=== PATIENT | male | born 1960 | race Caucasian/White ===

== ENCOUNTER 2019-05-21 22:59 | Inpatient (IN) ==
[2019-05-22 00:43] LABS: URINE SOURCE VOIDED
[2019-05-22 01:03] LABS: BILIRUBIN URINE NEGATIVE (NEGATIVE); BLOOD URINE MODERATE (NEGATIVE); COLOR ORANGE; GLUCOSE URINE TRACE mg/dL (NEGATIVE); KETONE URINE NEGATIVE (NEGATIVE); LEUKOCYTES URINE LARGE (NEGATIVE); NITRITE URINE NEGATIVE (NEGATIVE); PROTEIN URINE 300 mg/dL (NEGATIVE); SP GRAVITY URINE 1.013; TURBIDITY URINE TURBID (CLEAR); UROBILINOGEN URINE NORMAL (NORMAL)
[2019-05-22 01:12] LABS: UR EPITHELIAL CELLS <10 /HPF (<10); URINE BACTERIA 1+ /HPF; URINE RBC 20-40 /HPF (<10); URINE WBC TNTC /HPF (<10)
[2019-05-22 01:29] LABS: URINE CASTS NONE SEEN; URINE CRYSTALS NONE SEEN; URINE YEAST NONE SEEN
[2019-05-22 01:30] LABS: URINE SMALL ROUND CELLS NONE SEEN
[2019-05-22 01:33] LABS: BASO# 0.04 X1000 (0.0-0.2); BASO% 0.4 % (0.0-0.8); EOS# 0.48 X1000 (0.0-0.7); EOS% 4.8 % (0.0-10.0); HEMATOCRIT 24.1 % (42.0-52.0); HEMOGLOBIN 7.5 g/dL (14.0-18.0); IMM GRAN# 0.03 X1000 (0.0-0.04); IMM GRAN% 0.3 % (0.0-0.5); LYMPH# 1.94 X1000 (1.2-3.4); LYMPH% 19.5 % (20.5-51.1); MCH 24.5 PG (27-31); MCHC 31.1 g/dL (33-37); MCV 78.8 FL (81-99); MONO# 0.51 X1000 (0.11-0.59); MONO% 5.1 % (1.7-9.3); MPV 9.7 FL (7.4-10.4); NEUT# 6.93 X1000 (1.4-6.5); NEUT% 69.9 % (42.2-75.2); PLT 331 X1000 (130-400); RBC 3.06 XMIL (4.7-6.1); WBC 9.93 X1000 (4.8-10.8)
[2019-05-22 01:55] LABS: ESTIMATED GFR 19
[2019-05-22 01:57] LABS: AGAP 9; ALBUMIN 2.6 g/dL (3.5-5.0); ALKALINE PHOSPHATASE 91 U/L (32-122); BUN 20 mg/dL (8-22); CALCIUM 7.8 mg/dL (8.8-10.2); CHLORIDE 108 mmol/L (98-107); CK PROFILE 62 U/L (24-204); COSMO 285; CREATININE 3.3 mg/dL (0.7-1.2); GLUCOSE 121 mg/dL (70-104); GOT 10 U/L (10-34); GPT < 5 U/L (10-44); POTASSIUM 3.9 mmol/L (3.5-5.1); SODIUM 141 mmol/L (136-145); TCO2 24 mmol/L (25-35); TOTAL BILIRUBIN < 0.15 mg/dL (0.20-1.00); TOTAL PROTEIN 5.1 g/dL (6.3-8.3)
[2019-05-22] MEDS ORDERED: NS 1,000 ML IV ONE (02:20)
--- NOTE | 2019-05-22 02:23 | PROVIDER DOCUMENTATION ---
This chart was entered by Mikayla Hirsch Scribe, acting as scribe for Vy Chapin MD. HPI-Neurological Disorder - General Chief Complaint: Fall Stated Complaint: syncope Time Seen by Provider: 05/22/19 00:00 Source: patient, family (son) Allergies/Adverse Reactions: Patient Allergies Allergy/AdvReac Type Severity Reaction Status Date / Time No Known Allergies Allergy Verified 02/05/14 09:08 Home Medications: Home Medication List Medication Instructions Recorded Confirmed Last Taken Type NK [No Home Medications] 05/21/19 05/21/19 Unknown History - History of Present Illness-Neuro Nature of Presenting Problem: Pt is a 58 yowm brought into the ED by EMS after he fell at home this evening and was disoriented and confused about who he was or where he was. Pt's son states his father was fine yesterday, laughing and having normal conversation. Pt's son states his father was diagnosed with diabetes in 2002 and to his knowledge has taken no medication to control his diabetes in the last 3 years. Pt is alert but does not know his name, where he is or what year it is. Severity: reports: severe Onset/Duration: reports: abrupt, just prior to arrival, this evening Timing: reports: still present Context: reports: found unresponsive by family Approximate time patient was last seen normal?: 19:00 (son states he saw his father on 05/20/2019 and they had a normal conversation) Character of Altered Mental Status: reports: disoriented, confused, agitated, trouble concentrating Any recent trauma/injury?: reports: none Character of Deficits: reports: new weakness, falling Cognitive Baseline: alert but confused Gait Baseline: walks without assistance Associated Symptoms: reports: confusion, loss of consciousness. denies: short of breath, fever/chills, nausea, vomiting Similar Symptoms Previously?: No Recently seen or treated by another doctor?: No Review of Systems - Adult - REVIEW OF SYSTEMS - ADULT ROS:: ROS per family (son) Constitutional: denies: chills, fever Eyes: reports: no symptoms reported Ears, Nose, Mouth & Throat: reports: no symptoms reported Cardiovascular: reports: syncope. denies: chest pain Respiratory: denies: cough, shortness of breath Gastrointestinal: denies: nausea, vomiting Genitourinary: reports: no symptoms reported Musculoskeletal: reports: see HPI, bone pain, muscle weakness Integumentary: reports: no symptoms reported Neurological: reports: see HPI, syncope Psychiatric: reports: no symptoms reported Endocrine: reports: no symptoms reported Hematologic/Lymphatic: reports: no symptoms reported Allergic/Immunologic: reports: no symptoms reported All Other Systems: Reviewed and Negative Past History - Adult - PAST MEDICAL HISTORY-ADULT Review of Records: reports: Old Records Reviewed, Nursing Assessment Review, Medications Reviewed, Social history reviewed & non-contributory. Major Childhood Illnesses: reports: denies history Cardiovascular: reports: denies history Respiratory: reports: denies history Gastrointestinal: reports: denies history Obstetrical/Gynecological: reports: denies history Genitourinary: reports: denies history Musculoskeletal: reports: denies history Neurological: reports: denies history Endocrine/Immune: reports: Diabetes Diabetes Type: Type 2 Other Conditions: reports: MRSA (back of head) - PRIOR SURGERIES/PROCEDURES Surgical/Procedure History: reports: back/neck - IMMUNIZATION STATUS Childhood Immunizations: See Nurse Assessment Flu Vaccine: See Nurse Assessment - FAMILY HISTORY Family History: reviewed, not pertinent - SOCIAL HISTORY Smoking: cigarettes, less than 1 pack/day, other (smokeless tobacco) Provider spent 3-5 mins advising pt. on dangers of tobacco.: Discussed manners to quit use, and f/u contacts for add'l counseling. Substance Use: denies Living Situation: family Physical Exam- Neurological - Physical Exam-Neuro Initial Vital Signs Reviewed: Yes General Appearance: alert, mild distress, slow to respond Eye Exam: bilateral eye: PERRL HENMT: moist mucous membranes Head Injury: no evidence of injury Neck: non-tender, full range of motion, supple Respiratory: chest non-tender, lungs clear, normal breath sounds, no pleuratic chest pain Cardiovascular: normal peripheral pulses, regular rate, rhythm, no edema Abdominal Exam: normal bowel sounds, non tender, soft Extremity: normal range of motion, non-tender, normal gait, normal inspection, no pedal edema doctor podiatric medicine Exam: normal hearing, normal speech, PERRL. negative: facial droop, facial weakness Integumentary: normal turgor, warm/dry, pallor Psych/Mental Status: disoriented x 3, anxious, disheveled Progress - PLAN OF CARE/RESULTS Progress/Plan/Lab Results: Vital Signs - 8 hr 05/21/19 23:39 05/21/19 23:43 05/22/19 00:00 Temperature 97.8 F Pulse Rate 75 76 74 Respiratory Rate 14 17 13 Blood Pressure 170/86 170/86 O2 Sat by Pulse Oximetry 100 98 99 Laboratory Results - last 24 hr 05/21/19 05/22/19 05/22/19 23:36 01:06 01:06 WBC 9.93 RBC 3.06 L Hgb 7.5 L Hct 24.1 L MCV 78.8 L MCH 24.5 L MCHC 31.1 L RDW Std Deviation 14.0 Plt Count 331 MPV 9.7 Immature Gran % (Auto) 0.3 Neut % (Auto) 69.9 Lymph % (Auto) 19.5 L Jones % (Auto) 5.1 Eos % (Auto) 4.8 Baso % (Auto) 0.4 Immature Gran # (Auto) 0.03 Neut # (Auto) 6.93 H Lymph # (Auto) 1.94 Jones # (Auto) 0.51 Eos # (Auto) 0.48 Baso # (Auto) 0.04 Sodium Potassium Chloride Carbon Dioxide Anion Gap BUN Creatinine Estimated GFR/1.73 m2 BUN/Creatinine Ratio Glucose Calculated Osmolality Calcium Total Bilirubin AST ALT Alkaline Phosphatase Ammonia 17 Creatine Kinase Troponin T High Sens Total Protein Albumin Globulin Albumin/Globulin Ratio Urine Source VOIDED Urine Color ORANGE Urine Turbidity TURBID Urine pH 7.0 Ur Specific [place] 1.013 Urine Protein 300 A Ur Glucose (Stick) TRACE Ur Ketones (Stick) NEGATIVE Urine Blood MODERATE A Urine Nitrite NEGATIVE Urine Bilirubin NEGATIVE Urobilinogen Dipstick NORMAL Urine Leukocytes LARGE A Urine WBC (Auto) TNTC A Urine RBC (Auto) 20-40 A U Epithel Cells (Auto) <10 Urine Bacteria (Auto) 1+ Urine Crystals NONE SEEN Small Round Cells NONE SEEN Urine Casts NONE SEEN Urine Yeast-like Cells NONE SEEN 05/22/19 05/22/19 01:06 01:06 WBC RBC Hgb Hct MCV MCH MCHC RDW Std Deviation Plt Count MPV Immature Gran % (Auto) Neut % (Auto) Lymph % (Auto) Jones % (Auto) Eos % (Auto) Baso % (Auto) Immature Gran # (Auto) Neut # (Auto) Lymph # (Auto) Jones # (Auto) Eos # (Auto) Baso # (Auto) Sodium 141 Potassium 3.9 Chloride 108 H Carbon Dioxide 24 L Anion Gap 9 BUN 20 Creatinine 3.3 H Estimated GFR/1.73 m2 19 BUN/Creatinine Ratio 6 Glucose 121 H Calculated Osmolality 285 Calcium 7.8 L Total Bilirubin < 0.15 L AST 10 ALT < 5 L Alkaline Phosphatase 91 Ammonia Creatine Kinase 62 Troponin T High Sens 108 H* Total Protein 5.1 L Albumin 2.6 L Globulin 2.5 Albumin/Globulin Ratio 1.0 Urine Source Urine Color Urine Turbidity Urine pH Ur Specific [place] Urine Protein Ur Glucose (Stick) Ur Ketones (Stick) Urine Blood Urine Nitrite Urine Bilirubin Urobilinogen Dipstick Urine Leukocytes Urine WBC (Auto) Urine RBC (Auto) U Epithel Cells (Auto) Urine Bacteria (Auto) Urine Crystals Small Round Cells Urine Casts Urine Yeast-like Cells Orders Category Date Time Status CHEST-2 VIEWS [RAD] Stat Exams 05/22/19 00:[address] HEAD W/O CONTRAST [CT] Stat Exams 05/22/19 00:13 Taken AMMONIA [CHEM] Stat Lab 05/22/19 01:06 Completed CBC WITH ELECTRONIC DIFF [HEME] Stat Lab 05/22/19 01:06 Completed CK PROFILE [SP CHEM] Stat Lab 05/22/19 01:06 Completed COMPREHENSIVE METABOLIC PANEL [CHEM] Stat Lab 05/22/19 01:06 Completed TROPONIN T HIGH SENSITIVITY Stat Lab 05/22/19 01:06 Completed URINALYSIS [URINALYSIS] Stat Lab 05/22/19 00:37 Completed URINE MANUAL MICROSCOPIC [URINALYSIS] Stat Lab 05/21/19 23:36 Completed Result Diagrams: 05/22/19 01:06 05/22/19 01:06 - REASSESSMENT Reassessment #1 Time Reassessed: 02:20 Status: unchanged (Patient with persistent altered mental status. labs and studies reviewed with family and patient. Recommendation for admission. Family/patient in agreement with plan of care.) - XRAY 1 XRAY Study: Chest Impression: See EMR Report - CT/MRI 1 CT Study: Head Impression: See EMR Report - CONSULTS/PCP/HOSPITALIST Notification #1 *Consult/PCP/Hospitalist*: Dr. William Time Discussed: 02:21 Consult Disposition: Will see in ED, Admit Departure - Departure Date of Disposition Decision: 05/22/19 Time of Disposition Decision: 02:22 DIAGNOSIS: Altered mental status Qualifiers: Altered mental status type: disorientation Qualified Code(s): R41.0 - Disorientation, unspecified Acute renal failure (ARF) Qualifiers: Acute renal failure type: unspecified Qualified Code(s): N17.9 - Acute kidney failure, unspecified Disposition: ADMITTED INPATIENT 09 Certified Medical Emergency: Emergent Condition: Stable Referrals and Follow-Ups: None,PCP [Primary Care Provider] - - Critical Care Note This patient required my direct & personal management of CC.: No Attestation - Physician/ SENIA Attestation Patient care was provided by Advanced Practice Provider:: No The physician spent face to face time with patient:: Yes Advanced Practice Provider documentation review:: Supervising physician onsite and consulted in the evaluation and care of this patient. The physician did have a face to face encounter with the patient. - NIH Stroke Scale NIH Type: Initial Evaluation Level of Consciousness: 0-Alert LOC Questions (ask month and age): 2-Both Incorrect LOC Commands (ask to open & close eyes;make a fist, let go): 0-Obeys Both Correc tly Best Gaze (horizontal eye movement): 0-Normal Visual (use finger movement, counting or visual threat): 0-No Visual Loss Facial Palsy (show teeth or raise eyebrows & close eyes tght: 0-Symmetrical Movement Motor Function-left arm: 0-Normal Motor Function-right arm: 0-Normal Motor Function-left le-Normal Motor Function-right le-Normal Limb Ataxia(zolpvv-[id number], or heel to crowder): 0-No Ataxia Sensory(pin prick to face,arms,trunk,legs-compare side/side): 0-No Ataxia Best Language(name item/read sentence.Ex-Down to Earth): 0-No Aphasia Dysarthria(Pt read words or say words Ex.Mama,Tip-Top,Thanks: 0-Normal A rticulation Extinction and Inattention: 0-Normal NIH Total Score: 2 Stroke tPA Guidelines - Inclusion Criteria for IV tPA 18 years old or older: Yes Ischemic stroke with measurable deficit: No Onset <3 hours ago *OR* 3-4.5 hours ago: No This chart was documented by the indicated scribe, (Mikayla Hirsch, Scribe) and accurately reflects the services I performed and decisions made by , Vy Chapin MD, as attested by the provider's signature.
[2019-05-22] MEDS: ROCEPHIN 1 GM in NS 50 ML IV SCH (03:06)
--- NOTE | 2019-05-22 04:14 | HISTORY AND PHYSICAL ---
ADDENDUM: The patient was reportedly found "unconscious" on the floor of his apartment by friend, who called the patient's son and she also called EMS to bring him in. The friend is not sure if the patient rolled off the couch or passed out while standing. In the ER, the patient is alert and awake, but not oriented to person, place or time, but follows all commands. He cannot recognize his son, does not know even his own son. Does not remember his name. Exam is notable for tremor of the outstretched hands, but no focal signs noted. LABORATORY WORK: Notable for hemoglobin and hematocrit of 7 and 24, down from a hematocrit of 39. BUN is 20, creatinine was 2.3, this is up from a creatinine of 1 in 2014. Glucose 121. Troponin is elevated also. The patient denies any cardiac symptoms. Urinalysis showed too numerous to count WBCs. Head CT showed occipital hematoma. His vital signs blood pressure 170/80, heart rate 85, respiratory rate is 20, temperature 97.8, O2 sats 91% on room air. My suspicion is that this patient may have had a postconcussion event which may be preceded by seizure event and he could be in a post ictal phase. Also, I do believe patient has chronic kidney disease and some degree of uremia, which may or may not be playing a role here. Urine drug screen is pending. Blood gas is pending. For now, we will treat urinary tract, which I do not think this playing a large role in the patient's confusion as the patient is not delirious, but seems to have had some evidence of retrograde amnesia. For now, we will work up anemia. Further imaging studies, MRI to rule out CVA may benefit. If these are negative, consider EEG. We are going to monitor patient closely by doing neuro checks, this is to ensure that patient is monitored closely to detect early intracranial bleed. cc: Gladys William MD
--- NOTE | 2019-05-22 04:15 | HISTORY AND PHYSICAL ---
PRIMARY CARE PROVIDER: None. CHIEF COMPLAINT: All information was taken from the son at the bedside. Per patient, "Don't know." HISTORY OF PRESENT ILLNESS: Mr. Hunter is a 58-year-old male. Only past medical history known is that he is diabetic. Son got a phone call from his roommate around 10 p.m. It was reported to him that he fell, possibly passed out and then he heard he might have just rolled off the couch. However, he was brought in by EMS. He was disoriented, confused. He was last seen fine 2 days ago, alert and oriented, having a normal conversation. Now, he does not know his name. He does not know his date of . He does not know the current year. He does not know the president. He only knows he is in the hospital because he has been told. He does not know his son who is sitting beside him. He does not have any recollection of the events of the night. He could not remember. He does not really have any recollection of anything past or present. Workup in the ED revealed a urinary tract infection, 1+ bacteria, large leukocytes, 300 protein. Elevated troponin at 108. Unsure if he has had acute kidney injury or chronic kidney disease with a creatinine of 3.3 and a GFR of 19. Does have some anemia with a hemoglobin and hematocrit of [address] head [address] did show an occipital scalp hematoma, but no stroke. When you ask him about any complaints through his review of systems, all he says as he does not know. We will go ahead and start him on IV Rocephin. We will check a urine drug screen, alcohol blood level, continue to trend his troponin as well as check a stat ABG and do a bladder scan and do a full neurological workup. PAST MEDICAL HISTORY: Diabetes diagnosed in 2002, has not been on medication in over 5 years. PAST SURGICAL HISTORY: Back surgery secondary to having MRSA. He also from his chest x-ray looks like he also has back surgery where he has rods placed. HOME MEDICATIONS: None. SOCIAL HISTORY: Alcohol, but per the son at the bedside not in the last few years. He does dip [place], 1 can a day. No marijuana or illicit drug use. He lives with a roommate. FAMILY HISTORY: Father with AK and CVA. A brother with diabetes and mother with colon cancer. REVIEW OF SYSTEMS: Hard to obtain secondary to the patient being altered. He answered "I don't know" to all questions or "I really can't tell you." The only thing he could say is just that he felt crappy. All information was taken from EMR as well as son at bedside. ALLERGIES: No known drug allergies. PHYSICAL EXAMINATION: VITAL SIGNS: Temperature is 97.8 degrees, heart rate 76, respirations 17, blood pressure 170/86, O2 is 98% on room air. GENERAL: Mr. Hunter is a somewhat disheveled looking, confused 58-year-old male who is sitting up in the bed eating pudding in no acute distress. HEENT: Atraumatic, normocephalic. PERRL. NECK: Supple. Trachea midline. CARDIOVASCULAR: S1, S2 appreciated. No murmurs, gallops, rubs noted. RESPIRATORY: Lung sounds clear bilaterally. GASTROINTESTINAL: Soft, nontender, nondistended. Positive bowel sounds 4 quadrants. EXTREMITIES: Lower extremities no edema. Did not assess pedal pulses. Patient was still wearing his tennis shoes. NEUROLOGIC: Patient remains altered. He does not know his name. He does not know his date of . He only knew he was in the hospital because he was told multiple times. He did not know his son beside him. He does not know the current president. He does not know any events that have taken place today or even have any recollection of anything in the past. DIAGNOSTIC DATA: Head CT showed an occipital scalp hematoma, but no acute intracranial pathologies. LABORATORY DATA: White count 9, hemoglobin and hematocrit 7 and 24, platelet count is 331,000. Sodium 140, potassium 3.9, BUN 20, creatinine 3.3, GFR is 19, blood glucose is 121. CK 62, troponin was 108. Ammonia 17. Urinalysis shows 1+ bacteria, too numerous to count WBCs, large leukocytes, and 300 protein. ASSESSMENT AND PLAN: 1. Altered mental status, may be multifactorial. His head CT did not show any cerebrovascular accident. However, we will do a full neurological workup and CVA rule out. Per son report, he is not on any medication. He does not take any illicit drugs. He has not drank alcohol in the last few years. He is somewhat anemic. However, his blood pressures are stable. Possible uremia. We will get Nephrology's input as well. Possible concussion, or possible seizure-like activity. He could still be postictal. However, they report no history of seizures in the patient or family history. 2. Anemia, 7.5 and 24. We will do anemia study workup. We will watch his hemoglobin and hematocrit closely. Transfuse if needed. 3. Acute kidney injury versus chronic kidney disease. He does have a GFR of 19. We will hydrate him overnight and get Nephrology's input since the patient is so altered, Renal Ultrasound. 4. Urinary tract infection. We will start him on IV Rocephin. Check a urine culture. 5. Elevated troponin. Patient does not know if he has had any chest pain. The EKG does not show any ST-T wave changes. We will continue to trend for 2 more sets as well as recheck an EKG in the a.m. 6. Diabetes mellitus type 2. We will place him on pattern blood sugars with sliding scale. Check a hemoglobin A1c in the a.m. 7. History of methicillin-resistant Staphylococcus aureus in the back. Aware. 8. Tobacco use with 1 can of dip per day. The patient will need education on cessation when he is alert and oriented. 9. Further recommendation to follow physician evaluation, laboratory and diagnostic data. Dictated by ABA Marroquin for Gladys William MD cc: Gladys William MD MTD
[2019-05-22] MEDS ORDERED: TYLENOL PO PRN (04:24)
[2019-05-22 04:52] LABS: UR AMPHETAMINES QUAL NONE DETECTED (NONE DETECT); UR BARBITUATES QUAL NONE DETECTED (NONE DETECT); UR BENZODIAZEPIN QUAL NONE DETECTED (NONE DETECT); UR CANNABINOIDS QUAL NONE DETECTED (NONE DETECT); UR COCAINE QUAL NONE DETECTED (NONE DETECT); UR METHADONE QUAL NONE DETECTED (NONE DETECT); UR OPIATES QUAL NONE DETECTED (NONE DETECT); UR OXYCODONE QUAL NONE DETECTED (NONE DETECT); UR PCP QUAL NONE DETECTED (NONE DETECT)
[2019-05-22] MEDS: NS 1,000 ML IV SCH ×3 (05:08→21:25)
[2019-05-22 05:11] LABS: RETIC% 0.99 % (0.8-2.1); RETIC-HE 27.8 PG (28.2-36.6)
[2019-05-22] MEDS: HUMALOG SUBQ SCH ×4 (06:06→21:24)
[2019-05-22 06:34] LABS: FREE T4 0.95 ng/dL (0.93-1.70); TSH 1.05 uIUmL (0.27-4.20)
--- NOTE | 2019-05-22 07:45 | Diag Imaging Result Doc PS360 ---
EXAM: CHEST-2 VIEWS 05/22/2019 HISTORY: altered mental status TECHNIQUE: AP and lateral chest COMMENT: There are rods in the thoracic spine. There is COPD. No previous radiographs are available for comparison. The heart size and pulmonary vascularity are within normal limits. IMPRESSION: COPD. Electronically signed by Shahid Hebert 05/22/2019 7:42 AM
--- NOTE | 2019-05-22 08:24 | Diag Imaging Result Doc PS360 ---
EXAM: CT HEAD W/O CONTRAST 05/22/2019 HISTORY: fall with altered mental status TECHNIQUE: This exam was performed using automated exposure control, adjustment of mA or kV according to patient size, and/or use of iterative reconstruction technique. COMMENT: There is no evidence of intracranial mass effect, bleed, or abnormal extra-axial fluid collection. There are patchy periventricular white matter lucencies present particularly near the atrium of the right lateral ventricle and in the frontal white matter on the left. The visualized paranasal sinuses are clear. The left mastoid air cells are hypoplastic. The calvarium is intact. IMPRESSION: Chronic microvascular white matter changes. No evidence of acute disease. If clinically indicated further evaluation with MRI may be desirable. Electronically signed by Shahid Hbeert 05/22/2019 8:22 AM
--- NOTE | 2019-05-22 08:53 | EKG Report ---
Test Performed on : 05/22/2019 06:53:29 AM Test Reason : follow up Blood Pressure : / mmHG Vent. Rate : 085 BPM Atrial Rate : 085 BPM P-R Int : 134 ms QRS Dur : 088 ms QT Int : 398 ms P-R-T Axes : 057 -47 -30 degrees QTc Int : 473 ms Normal sinus rhythm. Left anterior fascicular block Nonspecific T wave abnormality Prolonged QT Abnormal ECG When compared with ECG of 22-MAY-2019 02:12, (Unconfirmed) No significant change was found Confirmed by Tommy LERNER, Olaf Gutierrez ([id number]) on 05/23/2019 10:26:05 PM
[2019-05-22] MEDS ORDERED: ASPIRIN PO SCH (09:00)
[2019-05-22 10:23] LABS: ALLEN TEST NO; BE -2.3 mmoll (-3.0-3.0); BLOOD TYPE ARTERIAL; HCO3-(ACT) 23.2 mmoll (20.0-26.0); METHB 0.4 % (0.0-1.5); O2(CT) 10.5 mL/dL (15.0-23.0); O2HB 97.1 % (95.0-99.0); PCO2(98.6) 37 mmHg (35-45); PO2(98.6) 109 mmHg (60-100); SAMPLE BLOOD; SAO2 98.5 % (95.0-100.0); THB 7.5 g/dL (11.5-17.4); pH(98.6) 7.39 (7.35-7.45)
[2019-05-22 10:30] LABS: MODALITY ROOM AIR
--- NOTE | 2019-05-22 11:04 | Diag Imaging Result Doc PS360 ---
EXAM: US RENAL 2 (RETROPER) COMPLETE 05/22/2019 HISTORY: [place] TECHNIQUE: Renal ultrasound COMMENT: The right kidney is 10 x 4.3 x 4.1 cm the left is 11.6 x 5.3 x 5.8 cm. The right kidney is without evidence of hydronephrosis or mass. There is a stone in the renal pelvis on the left measuring 2.4 cm in diameter. The left renal pelvis is distended but the calyces do not appear to be particularly distended. This was apparently also present on the CT examination of 06/02/2010. The bladder is not distended having a volume of 47 mL. There are no apparent masses. IMPRESSION: Left nephrolithiasis, apparently stable since 06/02/2010. Electronically signed by Shahid Hebert 05/22/2019 11:02 AM
--- NOTE | 2019-05-22 13:39 | PROGRESS NOTE ---
DATE: 05/22/2019 INTERVAL HISTORY: No acute events. He was admitted after a mechanical fall and memory loss and was found to have kidney dysfunction. SUBJECTIVE: He denies chest pain, shortness of breath, nausea. He said he had one episode of vomiting. He denies abdominal pain. He states he could not tell me the last event he could remember. VITALS: Temperature 97.7 degrees, pulse 87, respiratory 18, blood pressure 170/80. He is saturating 100% on room air. PHYSICAL EXAMINATION: Not in any acute distress. Oral cavity is dry air. Entry bilaterally equal. No wheeze, rhonchi, crackles.Cardiovascular: S1, S2 normal. No murmur or gallop. Appears normal at bedside telemetry. Abdomen: Soft, nontender. He has extreme edema of bilateral lower extremity extending up to mid crowder. He is alert. He states someone told him that this is a hospital. He remembers his date, but he could not tell me today's date, month, or year. LABS: Suggestive of microcytic anemia. He denies any black stools or known history of bleeding. Elevated creatinine with normal BUN. He has elevated troponins. He denies known history of coronary artery disease or chest pain. Microbiology, no data. He does have significant pyuria, though the urine culture has not been collected. He did not have fever or leukocytosis on presentation. ASSESSMENT AND PLAN: 1. Acute encephalopathy with amnesia. This could be postconcussion syndrome after mechanical fall. The circumstances of which are not entirely clear. He denies known history of seizure. Though there is pyuria, he does not have leukocytosis or fever to suspect sepsis. CT scan head without contrast was unremarkable. Uremia could also be a contributing factor. I will get MR imaging of the brain to rule out any structural brain disease. 2. Kidney dysfunction. His baseline kidney function is not known, but there is no reported history of chronic kidney disease. Follow up renal ultrasound. I will give him intravenous fluid resuscitation and follow up urine output input. Appreciate Nephrology recommendation. 3. Microcytic anemia. Followup iron panel fecal occult blood test. Continue monitor hemoglobin. 4. Suspected urinary tract infection. Follow up urine culture. Continue intravenous ceftriaxone. 5. Elevated troponins. The patient denies any chest pain or known history of coronary artery disease. I will trend troponins. This could be in the setting of kidney dysfunction. Electrocardiogram does not have any acute coronary syndrome-related ST-T changes. 6. He does have history of back surgery and akhil placement, MRSA infection of the back requiring surgery. DISPOSITION: Monitor patient and PVC. Plan of care discussed with him. His questions have been answered. I informed him about current date, time, and situation, and answered all of his questions. cc: Skyler Hartley MD
[2019-05-22 14:32] LABS: CALCIUM 7.2 mg/dL (8.8-10.2); POTASSIUM 3.7 mmol/L (3.5-5.1)
--- NOTE | 2019-05-22 16:00 | NEPHROLOGY CONSULTATION ---
DATE: 05/22/2019 REASON FOR CONSULTATION: Abnormal creatinine. HISTORY OF PRESENT ILLNESS: Mr. Hunter is a 58-year-old, white male who cannot really tell me why he is in the hospital. He states he has a history of back injury and disability. He has not been able to obtain Social Security Disability or Medicare and consequently he is not seen a doctor in several years by his report. He has no idea whether he has a problem with his kidneys. He again cannot tell me clearly why he is in the hospital. No voiding symptoms. No shortness of breath, etc. PAST MEDICAL HISTORY: As above. MEDICATIONS: None. ALLERGIES: None. SOCIAL HISTORY: He lives alone. Uses smokeless tobacco. FAMILY HISTORY/REVIEW OF SYSTEMS: Noncontributory. PHYSICAL EXAMINATION: Vital Signs: Blood pressure 170/83, heart rate 87, respiration 18, afebrile. General: A 58-year-old man, no acute distress. Skin: Warm and dry. HEENT: Conjunctivae are pink. Pupils are equal. Oropharynx is clear. Poor dentition with multiple broken and carious teeth. Neck: Supple. Neck veins are not distended. Heart: Regular. No gallops. Lungs: Equal. No crackles. Abdomen: Soft, nontender. Bowel sounds present. No organomegaly or masses. Extremities: Trace edema. No clubbing or cyanosis. IMPRESSION: Abnormal kidney function. We have 1 piece of lab data with creatinine 3.3. Previous creatinine was from 2013. His urine is abnormal with blood and protein. Ultrasound with normal size kidneys. We will complete our routine initial screening with further orders to follow. cc: Hunter Ramirez MD
[2019-05-22] MEDS: LIPITOR PO SCH (20:52)
[2019-05-23] MEDS: LABETALOL IV PRN ×2 (01:22→14:15)
[2019-05-23] MEDS: ROCEPHIN 1 GM in NS 50 ML IV SCH (02:31)
[2019-05-23] MEDS: HUMALOG SUBQ SCH ×4 (06:33→20:49)
[2019-05-23] MEDS: PROTONIX IV SCH ×2 (06:35→20:49)
[2019-05-23 06:54] LABS: HEMOGLOBIN A1C 5.9 % (4.8-6.0)
[2019-05-23] MEDS: ZOFRAN IV PRN ×3 (07:30→16:51)
[2019-05-23] MEDS: NORVASC PO SCH ×2 (07:31→09:40)
[2019-05-23 07:43] LABS: ESTIMATED GFR 21
[2019-05-23 07:55] LABS: AGAP 8; ALB/GLOB RATIO 0.8; ALBUMIN 2.1 g/dL (3.5-5.0); ALKALINE PHOSPHATASE 77 U/L (32-122); BUN 21 mg/dL (8-22); CALCIUM 7.4 mg/dL (8.8-10.2); CHLORIDE 112 mmol/L (98-107); COSMO 285; CREATININE 3.1 mg/dL (0.7-1.2); GLUCOSE 118 mg/dL (70-104); GOT 10 U/L (10-34); GPT < 5 U/L (10-44); SODIUM 141 mmol/L (136-145); TCO2 21 mmol/L (25-35); TOTAL BILIRUBIN < 0.15 mg/dL (0.20-1.00); TOTAL IRON 17 ug/dL (53-167); TOTAL PROTEIN 4.6 g/dL (6.3-8.3)
[2019-05-23 07:57] LABS: TSH 1.01 uIUmL (0.27-4.20)
--- NOTE | 2019-05-23 08:10 | ECHO REPORT ---
ORDER DATE: 05/22/2019 INTERPRETING PHYSICIAN: Dr. Wilson REQUESTING PHYSICIAN: CLINICAL INDICATIONS: This is a 58-year-old male with stroke, syncope, diabetes mellitus. M-MODE MEASUREMENTS: Right ventricle: cm. Left ventricle end diastole: 4.3 cm. Left ventricle end systole: 3.3 cm. Posterior wall: 1.1 cm. Interventricular septum: 1.1 cm. Left atrium: 2.8 cm. Aortic root: 3.6 cm. SUMMARY OF 2-DIMENSIONAL IMAGIN. Left ventricular function is normal. Ejection fraction is estimated at 55%. There is no wall motion abnormality. The chamber is within normal range. 2. The aortic valve looks normal. Color flow mapping is unremarkable. 3. Mitral valve shows mild degree of regurgitation. 4. Pulse wave Doppler of mitral inflow shows reversal of the E and the A ratio. Ratio is 0.6. 5. Tissue Doppler of septal and lateral mitral annulus averages 6 cm. 6. There is question of impaired left ventricular relaxation. 7. The tricuspid valve shows mild degree of regurgitation. 8. Pulmonary pressure appears to be grossly within normal range. 9. Inferior vena cava is not dilated. 10.Pulmonary valve appears to be normal. 11.The right-sided chambers appear to be normal. 12.There is no pericardial effusion, mass or thrombus. 13.The left atrium appears to be within normal range. Clinical correlation is recommended. cc: Rudolph Wilson MD
[2019-05-23 08:14] LABS: BASO# 0.05 X1000 (0.0-0.2); BASO% 0.5 % (0.0-0.8); EOS# 0.85 X1000 (0.0-0.7); EOS% 8.7 % (0.0-10.0); HEMATOCRIT 20.1 % (42.0-52.0); HEMOGLOBIN 6.2 g/dL (14.0-18.0); IMM GRAN# 0.03 X1000 (0.0-0.04); IMM GRAN% 0.3 % (0.0-0.5); LYMPH# 2.53 X1000 (1.2-3.4); LYMPH% 25.9 % (20.5-51.1); MCH 24.6 PG (27-31); MCHC 30.8 g/dL (33-37); MCV 79.8 FL (81-99); MONO# 0.49 X1000 (0.11-0.59); MPV 10.1 FL (7.4-10.4); NEUT# 5.81 X1000 (1.4-6.5); NEUT% 59.6 % (42.2-75.2); PLT 278 X1000 (130-400); RBC 2.52 XMIL (4.7-6.1); WBC 9.76 X1000 (4.8-10.8)
--- NOTE | 2019-05-23 08:41 | PROGRESS NOTE ---
DATE: 05/23/2019 INTERVAL HISTORY: No acute events overnight. His blood pressure was elevated to 180/90. His troponins were showing flat trend. Amlodipine has been added to his medical regimen. His fecal occult blood test was positive. His blood count is pending. SUBJECTIVE: Mr. Hunter repeatedly states he wanted to go home. He denies any chest pain, shortness of breath, cough. He denies any nausea, vomiting, abdominal pain. He states he is making adequate urine and he is collecting in the urinal. He could remember his date. He could tell me that today is May 2019. He could tell me that on the and , he was by himself and did not do anything. He could remember his son's name. However, he does not remember the events leading up to his hospitalization. OBJECTIVE: Vital Signs: Currently, temperature of 97.9 degrees, pulse 86, respiratory rate 18, blood pressure 159/74, saturating 100% on room air. General: Not in any acute distress. HEENT: Oral cavity is dry. Lungs: Air entry bilaterally equal. No wheeze, rhonchi, crackles. Cardiovascular: S1, S2 normal. No murmur, rub, or gallop. Abdomen: Soft, nontender. Extremities: He has edema of bilateral lower extremities, extending up to midshin level. Neurologic: He is alert. He is oriented to place, person, and partly with situation. His thought process is normal. Musculoskeletal: He is able to move both upper and lower extremities above ground level. His flexion and extension is equal and adequate in bilateral hip joints, knee joints, ankle joints, shoulder and elbow joints. Input and output: No data. LABORATORY DATA: No CBC. His BMP suggests stable creatinine. He does have hypocalcemia, low ferritin suggestive of iron deficiency. His vitamin B12 level is slightly low. His folic acid is also slightly low. Other labs are pending. MICROBIOLOGY: Pending. Stool occult blood test positive. IMAGING: Renal ultrasound imaging yesterday had left nephrolithiasis, which is stable since 2010. ASSESSMENT AND PLAN: 1. Acute encephalopathy with amnesia. Differential includes dementia, postconcussion syndrome after mechanical fall. There is no known history of seizure. He does have pyuria. However, his urinary tract infection does not look bad enough to cause sepsis and explain his encephalopathy. Head CT without contrast was unremarkable. He does have a akhil in his back. MRI brain pending to rule out new cerebrovascular accident. 2. Kidney dysfunction of unclear chronicity. His creatinine has remained stable over the last 24 hours, and he had 1 liter of urine output. Renal ultrasound was largely unremarkable, without any obstructive uropathy. Follow up complement levels. 3. Anemia due to blood loss, which could be chronic based on low ferritin. Continue intravenous Protonix every 12 hours, and start the patient on vitamin B12, folic acid, and iron supplementation for iron-deficiency anemia with vitamin B12 and folic acid deficiency. He would need outpatient Gastroenterology evaluation. 4. Suspected urinary tract infection with pyuria. Continue intravenous ceftriaxone. Follow up final urine culture results. 5. Elevated troponins without any chest pain or known history of coronary artery disease, likely in the setting of kidney dysfunction. Appears to have a flat trend. 6. Hypertension. I will start him on amlodipine, and will give him intravenous labetalol as needed. Once his kidney function appears to be stable, I will consider starting him on angiotensin-converting enzyme inhibitors. 7. Disposition. I will continue to monitor the patient in [facility]. The patient really wanted to go home. However, I explained to him about his multiple medical conditions. I called his son and informed him about the patient's medical conditions, including amnesia, kidney dysfunction, and positive fecal occult blood test, and reviewed medical management plan with him. I answered all of his questions adequately. cc: Skyler Hartley MD
[2019-05-23] MEDS: FERROUS SULFATE PO SCH (09:39)
[2019-05-23] MEDS: VITAMIN B-12 PO SCH (09:39)
[2019-05-23] MEDS: FOLIC ACID PO SCH (09:40)
[2019-05-23 10:05] LABS: URINE SOURCE CLEAN CATCH
[2019-05-23 10:29] LABS: BILIRUBIN URINE NEGATIVE (NEGATIVE); BLOOD URINE SMALL (NEGATIVE); COLOR YELLOW; GLUCOSE URINE TRACE mg/dL (NEGATIVE); KETONE URINE NEGATIVE (NEGATIVE); LEUKOCYTES URINE LARGE (NEGATIVE); NITRITE URINE NEGATIVE (NEGATIVE); PH URINE 6.5; PROTEIN URINE 300 mg/dL (NEGATIVE); SP GRAVITY URINE 1.012; TURBIDITY URINE HAZY (CLEAR); UROBILINOGEN URINE NORMAL (NORMAL)
[2019-05-23] MEDS ORDERED: LOVENOX SUBQ SCH (11:00)
[2019-05-23 11:08] LABS: UR EPITHELIAL CELLS <10 /HPF (<10); URINE BACTERIA NEGATIVE /HPF; URINE RBC <10 /HPF (<10); URINE WBC TNTC /HPF (<10)
[2019-05-23 11:15] LABS: URINE YEAST NONE SEEN
[2019-05-23] MEDS ORDERED: NS 500 ML IV ONE (19:04)
[2019-05-23] MEDS: LIPITOR PO SCH (20:49)
[2019-05-24] MEDS: ROCEPHIN 1 GM in NS 50 ML IV SCH (02:17)
[2019-05-24] MEDS: HUMALOG SUBQ SCH (06:06)
[2019-05-24] MEDS ORDERED: SODIUM CHLORIDE 0.9% 10 ML ONE (06:32)
--- NOTE | 2019-05-24 07:00 | EKG Report ---
Test Performed on : 05/22/2019 02:12:16 AM Test Reason : ED. NO EKG ORDER FOR MUSE Blood Pressure : / mmHG Vent. Rate : 076 BPM Atrial Rate : 076 BPM P-R Int : 108 ms QRS Dur : 082 ms QT Int : 404 ms P-R-T Axes : 047 -43 -45 degrees QTc Int : 454 ms Sinus rhythm. with short WI Left axis deviation ST & T wave abnormality, consider anterior ischemia Abnormal ECG When compared with ECG of 16-MAR-2010 10:04, Minimal criteria for Anterior infarct are no longer present Criteria for Inferior infarct are no longer present Nonspecific T wave abnormality now evident in Lateral leads Unconfirmed Result
[2019-05-24 07:03] LABS: ALBUMIN 2.4 g/dL (3.5-5.0); CALCIUM 7.5 mg/dL (8.8-10.2); CREATININE 3.2 mg/dL (0.7-1.2); PHOSPHORUS 3.1 mg/dL (2.7-4.5); POTASSIUM 3.9 mmol/L (3.5-5.1)
[2019-05-24 07:40] LABS: BASO# 0.04 X1000 (0.0-0.2); BASO% 0.4 % (0.0-0.8); EOS# 0.65 X1000 (0.0-0.7); EOS% 6.4 % (0.0-10.0); HEMATOCRIT 25.2 % (42.0-52.0); IMM GRAN# 0.02 X1000 (0.0-0.04); IMM GRAN% 0.2 % (0.0-0.5); LYMPH% 21.8 % (20.5-51.1); MCH 25.2 PG (27-31); MCHC 31.7 g/dL (33-37); MCV 79.2 FL (81-99); MONO# 0.55 X1000 (0.11-0.59); MONO% 5.4 % (1.7-9.3); MPV 10.2 FL (7.4-10.4); NEUT# 6.64 X1000 (1.4-6.5); NEUT% 65.8 % (42.2-75.2); PLT 300 X1000 (130-400); RBC 3.18 XMIL (4.7-6.1); RDW 14.4 % (11.5-14.5)
[2019-05-24] MEDS ORDERED: TRANDATE PO SCH (09:00)
[2019-05-24] MEDS: PROTONIX IV SCH ×2 (09:03→20:38)
[2019-05-24] MEDS: VITAMIN B-12 PO SCH (09:03)
[2019-05-24] MEDS: FOLIC ACID PO SCH (09:03)
[2019-05-24] MEDS: FERROUS SULFATE PO SCH (09:03)
[2019-05-24] MEDS: SODIUM CHLORIDE 0.9% INJ SCH ×2 (09:03→20:38)
[2019-05-24] MEDS: NORVASC PO SCH (09:04)
[2019-05-24] MEDS: ZOFRAN IV PRN (09:04)
[2019-05-24] MEDS: PRINIVIL PO SCH ×2 (09:04→09:05)
--- NOTE | 2019-05-24 10:12 | PROGRESS NOTE ---
DATE: 05/24/2019 INTERVAL HISTORY: No acute events overnight. His blood pressure remained elevated to 160/90. He received 1 unit of blood transfusion for acute blood loss anemia. SUBJECTIVE: In the morning time, he is again throwing up coffee-grounds emesis. His ex- is at bedside. He denies any chest pain or shortness of breath, or abdominal pain. He states he has had recent weight loss over the last several months. VITALS: Temperature 98.6 degrees pulse 84, respiratory rate 17, blood pressure 170/80, saturating 100% on room air. PHYSICAL EXAMINATION: Not in acute distress. Oral cavity is moist. Air entry is bilaterally equal. No wheeze, rhonchi, or crackles. S1 and S2 normal. No murmur, rub, or gallop. Abdomen is soft, nontender. No lower extremity edema. He is alert and oriented x3. He was unable to remember previous events leading up to until he fell. However, he could remember entire events after he has been in the hospital. He is able to stand up and move all of his extremities. LABS: Suggestive of microcytic anemia with appropriate rise in hemoglobin after blood transfusion. He does have what appears to be chronic kidney dysfunction with creatinine of 3.2. Hemoglobin of 8, platelets of 300,000. MICROBIOLOGY: Urine culture is growing gram-positive cocci. IMAGING: Echocardiogram yesterday had suggested ejection fraction of 55% without any regional wall motion abnormalities. ASSESSMENT AND PLAN: 1. Acute encephalopathy after a mechanical fall with amnesia, now appears to have resolved and he is able to remember the events which happened after he presented to the emergency room. CT scan of the head did not have any acute intracranial pathology. I will get MRI of brain to rule out cerebrovascular accident. This could be just postconcussion syndrome after a mechanical fall. He does not appear to be septic at the moment. 2. Kidney dysfunction of unclear chronicity. He could have chronic kidney disease secondary to uncontrolled, untreated hypertension. He is making adequate amount of urine. Renal ultrasound was unremarkable. Complements levels were largely within acceptable range. We will continue to monitor kidney function. Nephrology team on board and currently not planning any intervention. 3. Acute blood loss anemia, recurrent vomiting, recent weight loss, and iron deficiency, vitamin B12 and folic acid deficiency. Continue intravenous Protonix intravenous twice a day, iron and multivitamin supplementation. CT scan of the abdomen and pelvis has been ordered to rule out any intra-abdominal mass. I consulted gastroenterology team to see if he would need any inpatient endoscopy. He is status post 1 unit of packed red blood cell transfusion for positive fecal occult blood test. I will continue to monitor his CBC daily. 4. Acute Urinary tract infection with pyuria. Continue intravenous ceftriaxone. Follow up final urine culture results. 5. Others. His troponin showed flat trend, likely in the setting of chronic kidney disease; continue amlodipine and add lisinopril for his essential hypertension, and titrate according to his response. 6. Disposition. Continue to monitor patient in [facility] as I await MRI of brain, CT scan of the abdomen and pelvis. Plan of care extensively discussed with the patient, who understood it. The patient's ex- is at bedside and plan of care was also discussed with her. All of her questions were answered. cc: Skyler Hartley MD MTDD
--- NOTE | 2019-05-24 10:40 | NEPHROLOGY PROGRESS NOTE ---
DATE: 05/24/2019 DATE AND TIME SEEN: On 05/24/2019 at 0655 hours. SUBJECTIVE: Mr. Hunter is resting quietly in bed. States that he is feeling much better and would like to go home. He had received 1 unit of packed red blood cells yesterday evening for hemoglobin of 6.2. No complaints of increased work of breathing. OBJECTIVE: Vital Signs: Temperature 98.9 degrees, blood pressure 165/89, heart rate 89, respirations 17. He is on room air. Last recorded saturation 100%. He has had 1060 input and 1375 output to void. LABS: Sodium is 141, potassium 3.9, chloride 110, CO2 of 22, BUN 22, creatinine is 3.2, glucose of 91. The patient has an anion gap of 9, calcium 7.5, phosphorus 3.1, albumin is 2.4. White count 10.1, hemoglobin 8, hematocrit 25.2 with a platelet count of 300,000. PHYSICAL EXAMINATION: General: This is a 58-year-old white male. He is resting quietly in bed. Head of the bed is elevated. Family is at his bedside. He appears chronically ill, though no acute distress. Skin: Warm and dry. HEENT: Normocephalic, atraumatic. Conjunctivae are pale. He has ALFREDO. Mucous membranes are dry. Neck: Supple. Trachea midline. No evidence of JVD in the upright position. Cardiovascular: Regular rate and rhythm noted. No gallop appreciated. Lungs: Clear to auscultation bilaterally. Equal excursion on room air. Abdomen: Soft, nontender. Positive bowel sounds. Genitourinary: Adequate urine output documented. Patient is voiding. Extremities: Have trace bilateral lower extremity edema. No clubbing or cyanosis. Neurological: Alert and oriented x3. ASSESSMENT AND PLAN: 1. The patient has acute kidney injury on unknown chronic kidney disease. Previous labs noted in 2013 with a creatinine of 1. No recent lab work since that period of time. His creatinine remains stable at 3.2, BUN of 21 range. Adequate urine output documented. No indications for intervention. 2. Electrolytes and acid-base balance. These are acceptable. 3. Anemia. The patient has received 1 unit of packed red blood cells for hemoglobin of 8. No indications for further transfusion at this time, though he does state that he has had isolated bloody stools on and off for the past several months. Requested he talk with the primary care. We will discuss with the primary nurse. 4. Altered mental status. This has improved. He is alert to person and to place, though confused to some most recent events. I would like to thank you for allowing us to follow with this patient. Dictated by ABA Perdomo for Hunter Ramirez MD Face to face encounter, data reviewed, discussed with Cornell Betancourt on 05/24/19. I agree with the above assessment and plan of care. cc: ABA Perdomo MD [facility]
--- NOTE | 2019-05-24 11:21 | GASTROENTEROLOGY CONSULTATION ---
DATE: 05/24/2019 REFERRING PHYSICIAN: Dr. Hartley. PRIMARY CARE PHYSICIAN: None. REASONS FOR CONSULTATION: 1. Drop in hematocrit, anemia, that required 1 unit of blood transfusion. 2. Positive Hemoccult. HISTORY OF PRESENT ILLNESS: Mr. Hunter is 58-year-old male who was admitted on 05/22/2019 for altered mental status. During the hospital admission, he was noted to be anemic. He was noted to have elevated creatinine as well. During the course of the hospital admission, he tested positive for Hemoccult. He dropped hematocrit down to 20.1, received 1 unit of blood transfusion. His repeat hematocrit today went up to 25.2. The patient denies any passing blood in the stools. He complains of feeling discomfort in the epigastrium, along with nausea and feeling sick to his stomach. He has been a tobacco user. He dips for many decades. Denies history of alcohol abuse or NSAID abuse. He has never had EGD done in the past. He denies any prior history of peptic ulcer disease. PAST MEDICAL HISTORY: Diabetes diagnosed in 2002. PAST SURGICAL HISTORY: Back surgery secondary to MRSA. SOCIAL HISTORY: Previous history of alcoholism, but quit for a few years. He does dip [place] one can a day. No history of illicit drug abuse. No marijuana. He lives with a roommate. His ex- and her were present at the bedside. FAMILY HISTORY: Father with MN and CVA, a brother with diabetes, and mother with colon cancer. REVIEW OF SYSTEMS: Could not be obtained. The patient was not able to provide me enough information, but according to him, he was feeling sick to his stomach, and hurting in his upper belly. MEDICATIONS: Medications in the hospital include Lipitor, Urvashi-Colace, Tylenol, Norvasc, vitamin B12, ferrous sulfate, folic acid, labetalol, lisinopril, normal saline at 30 mL/h, Zofran, Protonix, ceftriaxone, and the patient is on a diabetic diet. PHYSICAL EXAMINATION: Vital Signs: Temperature of 98.6 degrees, pulse rate of 84, respiratory rate 17, blood pressure 170/84, saturating 100% room air. Body weight of 145 pounds 6 ounces, BMI 21.5 kg/m2. General: Moderately nourished, lying in bed, currently feeling nauseous. HEENT: Positive pallor. No icterus. Pupils equal, reactive to light. Neck: Supple. Abdomen: Discomfort in the epigastric region. No rebound or guarding. Extremities: No cyanosis or clubbing. Neurologic: He was awake, but answered only a few questions. His ex- was present at bedside. IMAGING AND LABORATORY DATA: Hemoglobin and hematocrit are 8 and 25.2, white count 10.1, platelet count of 300,000. Sodium 141, potassium 3.9, chloride 110, bicarb 22, anion gap 9, BUN of 22, creatinine 3.2, glucose of 91, calcium 7.5. Phosphorus 3.1. Liver enzymes: AST of 10, ALT less than 5, alkaline phosphatase 77, total protein is 4.6, albumin of 2.4. Iron level of 17, which is low. Total bilirubin is less than 0.15. Urinalysis showed positive protein, small blood, positive white cells. Toxicology screen was negative. His urine culture showing gram-positive cocci. Stool occult blood was positive. CT of the head on admission showed chronic microvascular white matter changes. Echocardiogram: EF was normal at 55%. Renal ultrasound showed left nephrolithiasis, apparently stable since 06/02/2010, and the stone measured 2.4 cm. IMPRESSION AND PLAN: 1. Encephalopathy. This is being worked up by the primary care team. 2. Chronic renal insufficiency with elevated creatinine. This is being managed by Nephrology team. 3. Anemia of unclear etiology. He has a positive Hemoccult. He required 1 unit of blood transfusion. He has iron deficiency on labs. Will schedule him for esophagogastroduodenoscopy tomorrow for further workup to rule out peptic ulcer disease. 4. Urinary tract infection. He is on intravenous ceftriaxone. His urine culture is growing gram- positive cocci. Further speciation is pending. 5. Kidney stone measuring 2.4 cm. He may need Urology consult. 6. Nausea. Will keep him on intravenous Zofran. 7. Bowel regimen with Urvashi-Colace. 8. We will continue iron sulfate for anemia. The above plans were discussed with the patient and the family at bedside. All questions were answered. Please call with any further questions. Will schedule for esophagogastroduodenoscopy tomorrow with Dr. Fuentes. The risks, benefits, indications, and alternatives to the procedure were discussed with the patient and family at bedside. All questions were answered. Please call us with any further questions. cc: Nghia Shah MD
[2019-05-24] MEDS ORDERED: VANCOMYCIN 1 GM/NS 1 GM/250 ML IVPB IV ONE (11:34)
--- NOTE | 2019-05-24 15:11 | Diag Imaging Result Doc PS360 ---
EXAM: CT ABDOMEN/PELVIS W/O CONTRAST HISTORY: Rule out intrabdominal mass/cholecystitis. TECHNIQUE: CT abdomen and pelvis without oral or intravenous contrast COMPARISON: 06/02/2010 FINDINGS: There is an 11 mm noncalcified nodule on the very first image in the right lower lobe. There is scarring more inferiorly in the right lower lobe. No pleural effusions. There are several stones within the gallbladder. No adjacent inflammation. No focal hepatic abnormality identified on this noncontrasted exam. No splenomegaly. No inflammation about the pancreas. Normal adrenal glands. No right renal stone or right-sided hydronephrosis. There is a large stone in the left renal pelvis measuring 1.6 x 2.4 x 2.6 cm. There is dilatation to the renal pelvis. Moderate atherosclerosis. No aortic aneurysm. There is thickening to the stomach wall is distended. No bowel obstruction. No abscess. Urinary bladder is moderately distended. Prominent seminal vesicles. There are multiple pelvic phleboliths. The prostate is not enlarged. IMPRESSION: 1.Cholelithiasis 2.Left nephrolithiasis with a dilated renal pelvis 3.Prominent seminal vesicles This exam was performed using automated exposure control, adjustment of mA or kV according to patient size, and/or use of iterative reconstruction technique. Electronically signed by César Brown 05/24/2019 3:09 PM
--- NOTE | 2019-05-24 16:31 | Diag Imaging Result Doc PS360 ---
EXAM: MRI BRAIN W/O CONTRAST INDICATION: postconcussion syndrome, r/o cva COMPARISON: CT head dated 05/22/2019. No prior MRI brain is available for comparison. FINDINGS: Please note that the patient elected to in the exam before the final coronal gradient sequence was performed. There is no evidence of acute infarct. There is a tiny focus of encephalomalacia involving the right occipital lobe and there are a few chronic lacunar infarcts involving the periventricular white matter bilaterally. There is patchy T2/FLAIR hyperintensity in the periventricular and subcortical white matter suggesting at least moderate microangiopathy. There is no discrete intracranial mass, mass effect, or intracranial hemorrhage. The surrounding soft tissues and bony structures are essentially unremarkable. IMPRESSION: A few chronic periventricular lacunar infarcts and minimal cortical encephalomalacia involving the right occipital lobe and moderate white matter microangiopathy. No definite acute intracranial pathology. Electronically signed by Corey Bonilla 05/24/2019 4:29 PM
[2019-05-24] MEDS: PERICOLACE PO SCH (20:38)
[2019-05-24] MEDS: LIPITOR PO SCH (20:38)
[2019-05-25] MEDS: ROCEPHIN 1 GM in NS 50 ML IV SCH (03:46)
[2019-05-25 07:08] LABS: BASO# 0.05 X1000 (0.0-0.2); BASO% 0.6 % (0.0-0.8); EOS# 0.48 X1000 (0.0-0.7); EOS% 5.8 % (0.0-10.0); HEMATOCRIT 26.1 % (42.0-52.0); HEMOGLOBIN 8.3 g/dL (14.0-18.0); IMM GRAN# 0.02 X1000 (0.0-0.04); IMM GRAN% 0.2 % (0.0-0.5); LYMPH% 20.6 % (20.5-51.1); MCH 25.5 PG (27-31); MCHC 31.8 g/dL (33-37); MCV 80.1 FL (81-99); MONO# 0.53 X1000 (0.11-0.59); MONO% 6.4 % (1.7-9.3); MPV 10.2 FL (7.4-10.4); NEUT# 5.46 X1000 (1.4-6.5); NEUT% 66.4 % (42.2-75.2); PLT 315 X1000 (130-400); RBC 3.26 XMIL (4.7-6.1); RDW 14.9 % (11.5-14.5); WBC 8.24 X1000 (4.8-10.8)
[2019-05-25 07:48] LABS: ALBUMIN 2.3 g/dL (3.5-5.0); CALCIUM 7.4 mg/dL (8.8-10.2); CREATININE 3.6 mg/dL (0.7-1.2); PHOSPHORUS 3.3 mg/dL (2.7-4.5); POTASSIUM 4.2 mmol/L (3.5-5.1)
--- NOTE | 2019-05-25 09:16 | Carotid Study ---
DATE: 05/22/2019 REQUESTING PROVIDER: Zack. ELECTRONIC TYPESETTING MACHINE OPERATOR: Osiel. INDICATION: CVA. EQUIPMENT: [employer] Vivid E9 ultrasound system with a 9 L-D transducer. FINDINGS: Complete diagram of ultrasound images can be seen scanned in the patient's medical record. The peak systolic velocity noted on the right side is in the proximal internal carotid artery and is noted to be 110. The peak systolic velocity noted on the left side is noted in the proximal internal carotid artery and is noted to be 108. Calculated internal common ratio on the right is 1.11, left 1.49. Calculated stenosis on the right is 0% to 39%, left 0% to 39%. There appears to be some atherosclerosis, but this does not produce a hemodynamically significant flow- limiting stenosis. Both sides appear to be in the range of 0% to 39%, but likely closer to the 39% range. Both vertebral arteries were antegrade flow. INTERPRETATION: By strict velocity criteria, no hemodynamically significant flow-limiting stenosis. Both vertebral arteries are antegrade flow. The calculated stenosis is likely 0% to 39% bilaterally, being closer to 39% bilaterally. cc: Roddy Robles MD
[2019-05-25] MEDS ORDERED: XYLOCAINE-MPF 2% ONE (09:46)
[2019-05-25] MEDS ORDERED: DIPRIVAN 1% ONE (09:46)
[2019-05-25] MEDS ORDERED: FENTANYL ONE (09:47)
--- NOTE | 2019-05-25 10:34 | ENDOSCOPY OPERATIVE NOTE ---
[facility] ENDOSCOPY OPERATIVE NOTE , EGD PROCEDURE REPORT EXAM DATE: 05/25/2019 PATIENT NAME: Vazquez Hunter MR#: [id number] BIRTHDATE: 1960 ATTENDING: Dimas Fuentes MD STATUS: inpatient ROLL PANNER: INDICATIONS: The patient is a 58 yr old male here for an EGD due to iron deficiency anemia and occul t blood positive. PROCEDURE PERFORMED: EGD w/ biopsy MEDICATIONS: Per Anesthesia ESTIMATED BLOOD LOSS: None CONSENT: The patient understands the risks and benefits of the procedure and understands that these r isks include, but are not limited to: sedation, allergic reaction, infection, perforation and/or bleeding. Alternative means of evaluation and treatment include, among others: physical exam, x-rays, and/or surgical intervention. The patient elects to proceed with this endoscopic procedure. DESCRIPTION OF PROCEDURE: During pre-op preparation period all mechanical and medical equipment was c hecked for proper function. Hand hygiene and appropriate measures for infection prevention was taken. After the risks, benefits and alternatives of the procedure were thoroughly explained, Informed consent was verified, confirmed and timeout was successfully executed by the treatment team. The patient was anesthetized with topical anesthesia and the [id number]-[id number] ([id number]) endoscope was introduced through the mouth and advanced to the second portion of the duoden um. Retroflexion was performed in the stomach and revealed no abnormalities. The gastroscope was then slowly withdraw n and removed. The patient's toleration of the procedure was excellent. ESOPHAGUS: The EGD was normal. A biopsy was performed using cold forceps of the duodenum to rule out celiac disease. Sample sent for histology. ADVERSE EVENTS: There were no complications. IMPRESSIONS: ESOPHAGUS: The EGD was normal. A biopsy was performed using cold forceps of the duodenum to rule out celiac disease. Sample sent for histology. RECOMMENDATIONS: 1. Await biopsy results 2. Clear liquids 3. Prep with 4L golytely for diagnostic colonoscopy tomorrow REPEAT EXAM: Dimas Fuentes MD eSigned: Dimas Fuentes MD 05/25/2019 10:34 AM CC: CPT CODES: 54148 Upper gastrointestinal endoscopy including esophagus, stomach, and either the du odenum and/or jejunum as appropriate; with biopsy, single or multiple ICD CODES: 280.9 Iron deficiency anemia,unspecified 972.1 Nonspecific abnormal findings in stool contents The ICD and CPT codes recommended by this software are interpretations from the data that the [facility] staff has captured with the software. The verification of the translation of this report to the ICD and CPT co shawn and modifiers is the sole responsibility of the health care institution and practicing physician where this report was generated. [employer] will not be held responsible for the validity of the ICD and CPT codes i ncluded on this report. AMA assumes no liability for data contained or not contained herein. CPT is a registered tra demark of the [employer]. PATIENT NAME: Vazqeuz Hunter MR#: [id number]
[2019-05-25] MEDS ORDERED: ATIVAN IV PRN (12:09)
[2019-05-25] MEDS: FERROUS SULFATE PO SCH (12:43)
[2019-05-25] MEDS: PROTONIX IV SCH ×2 (12:44→22:31)
[2019-05-25] MEDS: FOLIC ACID PO SCH (12:44)
[2019-05-25] MEDS: VITAMIN B-12 PO SCH (12:44)
[2019-05-25] MEDS: NORVASC PO SCH (12:44)
--- NOTE | 2019-05-25 14:25 | NEPHROLOGY PROGRESS NOTE ---
DATE: 05/25/2019 TIME SEEN: 07:30 a.m. SUBJECTIVE: Mr. Hunter has just returned to bed from going to the restroom for a bowel movement. He has no complaints at this time. States that he is n.p.o. for a test this a.m.. OBJECTIVE: Vital Signs: Temperature 98.6 degrees, blood pressure 160/65, heart rate 90, respirations are 20. He is on room air. Last recorded saturation 98%. He has had 410 in and 500 out to void. LABORATORY DATA: Sodium is 140, potassium 4.2, chloride 110, CO2 20, BUN 26, creatinine 3.6, glucose 120. The patient has an anion gap of 10. Calcium 7.4, phosphorus 3.3, albumin is 2.3. White count 8.24, hemoglobin 8.3, hematocrit 26.1 with a platelet count of 315,000. The patient has a urinalysis that is positive for Staphylococcus aureus. He is currently on Rocephin after receiving a dose of vancomycin initially on admission. PHYSICAL EXAMINATION: General: This is a 58-year-old white male who is currently resting quietly in bed. He appears chronically ill. He is in no acute distress. Skin: Warm and dry. HEENT: Normocephalic, atraumatic. Conjunctiva is pale. Mucous membranes are dry. Neck: Supple. Trachea midline. There is no evidence of JVD in the upright position. Cardiovascular: Regular rate and rhythm. No murmur or gallop appreciated. Lungs: Clear to auscultation bilateral. Equal excursion. He is currently on room air. Abdomen: Soft, nontender, positive bowel sounds. Genitourinary: Not inspected. Patient has been voiding. Adequate amount has been documented. Extremities: Have trace bilateral edema mostly pretibial. Neurological: He is alert and oriented x3 though he is forgetful to some events prior to his hospitalization. ASSESSMENT AND PLAN: 1. Likely CKD with modest overlying ISRRAEL that is prerenal in origin related to treatment. He does have significant proteinuria. Complete database. OK to complete evaluation as an outpatient. 2. Electrolytes and acid-base balance. These are acceptable. 3. Anemia. This is low but stable. Patient is currently on ferrous sulfate and folate per primary care. 4. Altered mental status. This continues to improve though patient remains forgetful at times. 5. Positive urinary tract infection with Staphylococcus aureus. Patient remains on Rocephin per primary care. I would like to thank you for allowing us to follow with this patient. Dictated by ABA Perdomo for Hunter Ramirez MD Face to face encounter, data reviewed, discussed with Cornell Betancourt on 05/25/19. I agree with the above assessment and plan of care. cc: ABA Perdomo MD [facility]
[2019-05-25] MEDS ORDERED: GOLYTELY PO ONE (18:00)
--- NOTE | 2019-05-25 21:30 | PROGRESS NOTE ---
DATE: 05/25/2019 SUBJECTIVE: The patient is resting comfortably in bed. He states that he has periods of severe anxiety. OBJECTIVE: Vital Signs: Temperature 97.6 degrees, blood pressure 170/86, heart rate 94, respirations 18, O2 saturations 100% on room air. General: This is a chronically ill-appearing, elderly, male sitting up in bed in no acute distress. Heart: S1, S2 normal. Tachycardic. Lungs: Clear to auscultation bilaterally. Abdomen: Positive bowel sounds. Soft, nontender, nondistended. Extremities: No edema. No cyanosis. Neurologic: The patient is alert and oriented x3. LABS: White blood cell count 8.2, hemoglobin 8.3, hematocrit 26, platelets 315,000. Sodium 140, potassium 4.2, chloride 110, CO2 20, BUN 26, creatinine 3.6, glucose 120. ASSESSMENT AND PLAN: 1. Metabolic encephalopathy. Slowly improving. The MRI of the brain was unremarkable. The patient's mental status has improved. 2. Acute kidney injury versus chronic kidney disease. The patient's creatinine continues to rise. The workup is in progress at this time. Further recommendations to follow from the independent living advisor. 3. Urinary tract infection secondary to oxacillin-sensitive Staphylococcus aureus. Continue on antibiotic therapy. 4. Possible gastrointestinal bleed. The patient had an esophagogastroduodenoscopy done today that was unremarkable. The patient is scheduled for colonoscopy tomorrow. 5. Hypertension, uncontrolled. The patient is currently on the Norvasc. We will add labetalol. 6. Deep vein thrombosis prophylaxis. Continue with sequential compression devices. cc: Nena Gross MD
[2019-05-25] MEDS: PERICOLACE PO SCH (22:31)
[2019-05-25] MEDS: LIPITOR PO SCH (22:31)
[2019-05-25] MEDS: SODIUM CHLORIDE 0.9% INJ SCH (22:32)
[2019-05-25] MEDS: TRANDATE PO SCH (22:58)
--- NOTE | 2019-05-25 23:51 | CONSULTATION ---
DATE OF CONSULTATION: 05/25/2019 REQUESTING PHYSICIAN: Dr. Hartley with hospitalist service. REASON FOR CONSULTATION: Consultation for large renal stone, dilated renal pelvis. HISTORY OF PRESENT ILLNESS: A 58-year-old male without previous history of urolithiasis, who was admitted with altered mental status. In the process, he had CT of the abdomen and pelvis on 05/24/2019 which revealed 2.6 x 2.4 cm left renal stone, with dilation of the renal pelvis but no evidence of hydroureteronephrosis. The patient states that he does not have left flank pain. He denies gross hematuria. He denies recurrent urinary tract infections. He did have Staphylococcus aureus UTI. PAST MEDICAL HISTORY: Diabetes mellitus. PAST SURGICAL HISTORY: Back surgery. HOME MEDICATIONS: None. ALLERGIES: No known drug allergies. SOCIAL HISTORY: He dips. Denies illicit drugs. There is a report of alcohol use. FAMILY HISTORY: Mother with urolithiasis. REVIEW OF SYSTEMS: Reviewed and 12 systems negative, except as per the HPI. PHYSICAL EXAMINATION: T 97.6 degrees, P 94, BP 170/86.General: No acute distress. HEENT: Normocephalic, atraumatic. Cardiovascular: Regular rhythm. Pulmonary: Bilateral breath sounds. Abdomen soft, nontender, nondistended. Back: No CVA tenderness. Genitourinary: Bladder is nontender to palpation. Normal external genitalia. Penile shaft is without lesions or masses. The meatus is patent. Testes atrophic but descended bilaterally. Scrotal skin is without lesions. No rashes. No evidence of sizable hydrocele. His perineum has intact skin without lesions. Rectal: Digital rectal examination is deferred at this time. Neurologic: Alert and oriented x3. Psychiatric: Appropriate mood and affect. LABORATORY DATA: White cell count is 8000, hematocrit 26. Creatinine is 3.6. His urinalysis on 05/23/2019 shows no evidence of bacteria, but small amount of blood and leukocytes. DIAGNOSTIC DATA: Pertinent images: CT abdomen and pelvis without contrast on 05/24/2019 as per HPI. ASSESSMENT: A 58-year-old male with large left renal pelvis stone and dilation of the renal pelvis as well as renal dysfunction. There is no evidence of ureteral or ureteropelvic junction obstruction, and renal pelvis dilation goes along with the size of the renal stone. I have discussed with the patient that given the size of the stone, it is not possible to pass it and we do not have the medications to dissolve it. We discussed that he would benefit from treating the stone, as in the future it could cause worsening hydronephrosis as well as give him recurrent urinary tract infections. The patient states he is not sure if he wants anything done. At this time he would like to think about it and let us know if he so decides. I have discussed with him that after discharge he is welcome to make an appointment at our clinic to discuss stone treatment. He voiced understanding. PLAN: 1. No emergent urologic intervention needed. 2. I do believe he would benefit from treatment, but it would be up to him whether he wants to see me in clinic and discuss the surgery. 3. Thank you for the consultation. Please call with questions. cc: Hill Shirley MD
[2019-05-26] MEDS: ZOFRAN IV PRN (00:05)
[2019-05-26] MEDS: LABETALOL IV PRN (00:05)
[2019-05-26] MEDS: ROCEPHIN 1 GM in NS 50 ML IV SCH (04:32)
[2019-05-26] MEDS ORDERED: DIPRIVAN 1% ONE (07:44)
[2019-05-26] MEDS ORDERED: XYLOCAINE-MPF 2% ONE (07:44)
[2019-05-26] MEDS ORDERED: FENTANYL ONE (07:47)
[2019-05-26] MEDS ORDERED: TRANDATE PO SCH (09:00)
--- NOTE | 2019-05-26 09:56 | ENDOSCOPY OPERATIVE NOTE ---
[facility] ENDOSCOPY OPERATIVE NOTE , COLONOSCOPY PROCEDURE REPORT EXAM DATE: 05/26/2019 PATIENT NAME: Vazquez Hunter MR #: [id number] BIRTHDATE: 1960 ENDOSCOPIST: Dimas Fuentes MD STATUS: inpatient ASSISTANT SHIFT SUPERVISOR: INDICATIONS: The patient is a 58 yr old male here for a colonoscopy due to anemia, non-specific. PROCEDURE PERFORMED: Colonoscopy with biopsy MEDICATIONS: Per Anesthesia PREP TYPE: GoLytely
[2019-05-26] MEDS: VITAMIN B-12 PO SCH (11:20)
[2019-05-26] MEDS: FOLIC ACID PO SCH (11:20)
[2019-05-26] MEDS: TRANDATE PO SCH ×2 (11:20→20:33)
[2019-05-26] MEDS: NORVASC PO SCH (11:20)
[2019-05-26] MEDS: FERROUS SULFATE PO SCH (11:20)
[2019-05-26] MEDS: PROTONIX IV SCH ×2 (11:21→20:33)
[2019-05-26] MEDS: SODIUM CHLORIDE 0.9% INJ SCH ×2 (11:21→20:33)
[2019-05-26 12:04] LABS: HEMATOCRIT 25.9 % (42.0-52.0); HEMOGLOBIN 8.2 g/dL (14.0-18.0); MCH 25.8 PG (27-31); MCHC 31.7 g/dL (33-37); MCV 81.4 FL (81-99); MPV 10.1 FL (7.4-10.4); RBC 3.18 XMIL (4.7-6.1); RDW 15.4 % (11.5-14.5); WBC 8.94 X1000 (4.8-10.8)
[2019-05-26 12:07] LABS: ALBUMIN 2.4 g/dL (3.5-5.0); CALCIUM 8.1 mg/dL (8.8-10.2); CREATININE 3.8 mg/dL (0.7-1.2); PHOSPHORUS 4.3 mg/dL (2.7-4.5); POTASSIUM 4.3 mmol/L (3.5-5.1)
--- NOTE | 2019-05-26 12:37 | Diag Imaging Result Doc PS360 ---
EXAM: CT THORAX W/O CONTRAST 05/26/2019 HISTORY: R/O METS TECHNIQUE: This exam was performed using automated exposure control, adjustment of mA or kV according to patient size, and/or use of iterative reconstruction technique. COMMENT: There is a small amount of pleural fluid in the left costophrenic sulcus. This has diminished since the previous study of 06/02/2010. It is essentially unchanged from the abdominal study of 05/24/2019. There is a platelike opacity in the posterior costophrenic sulcus of the right lower lobe which was apparently present at the time the previous study in 2010 although some of this was obscured by atelectasis at that time. There are several nodules present in the right lower lobe one on image 53 measuring almost 9 mm. If this was present on the previous study of 2010 it was obscured by atelectasis and pleural fluid. It was not included on the abdominal study. There is a multilobulated and spiculated nodule more caudally on image 57 measuring almost 13 mm in transverse dimension. This was also present on the abdominal study and is somewhat obscured on the 2011 exam. There are postsurgical changes in the thoracic spine. There is no evidence of acute bony abnormality. IMPRESSION: Pulmonary nodules in the right lower lobe. The possibility of metastatic disease cannot be excluded although there are no other nodules elsewhere. Otherwise no evidence of acute disease. Electronically signed by Shahid Hebert 05/26/2019 12:35 PM
[2019-05-26] MEDS ORDERED: VENOFER 300 MG in NS 250 ML IV ONE (12:41)
--- NOTE | 2019-05-26 14:24 | PROVIDER PROGRESS NOTE ---
Progress Note Subjective: He is agitated from little sleep during the night and voices wishing to go home. He denies any uremic complaints. Objective: temperature 98.4, pulse 82, respiration 16, blood pressure 166/78, 02 sat 99% on room air. General: ill appearing white male lying in bed in no acute distress. HEENT: normocephalic, atraumatic, pupils equal and reactive, mucous membranes moist. Skin: warm, dry, pale. Neck: supple, 6cm JVD with hepatojugular reflux. Cardiovascular: s1s2, regular rate and rhythm. No murmur or gallop. Respiratory: clear with equal air entry. Abdomen: soft, nontender, nondistended, bowel sounds present. : non inspected Extremities: 1+ pitting edema to BLE. Neurological: alert and oriented to person, place, and time. Labs: intake 3360, output 3 unmeasured voids. Impression: Acute on chronic kidney disease. Creatinine not improving. We will order a 24- hour urine with KAYLEEN. Blood pressure. Above target. Labetalol started yesterday. Fluid volume. Slightly Expanded. Observe. Medication review. No changes. Abdominal pain. GI evaluation in process.
--- NOTE | 2019-05-26 15:00 | HEMO/ONC CONSULTATION ---
DATE: 05/26/2019 REASON FOR CONSULTATION: Colon mass. HISTORY OF PRESENT ILLNESS: Mr. Hunter is a 58-year-old male, who was found by his roommate unconscious on the floor. He was brought in by EMS disoriented and confused on May 22. The patient has one son that has given information regarding his father. In the ER, the patient became awake, but he did not know his name, date of , what year or who the President was. He did not even recognize his son sitting beside him. He does not recall the night before or what happened to him. Workup in the ED revealed a urinary tract infection. CT of the head showed an occipital scalp hematoma, but no stroke on his admission. According to the nurses note, the patient continues to have some confusion. The patient was also noted to have a GI bleed with associated acute blood-loss anemia. Dr. Fuentes performed a colonoscopy due to GI bleeding and found a near circumferential mass located 20 cm from the point of entry in the sigmoid colon. Multiple biopsies were performed. He also had a few small subcentimeter polyps. PAST MEDICAL HISTORY: Diabetes diagnosed in 2002. He is not currently on any medication. SURGICAL HISTORY: Back surgery secondary to having MRSA. SOCIAL HISTORY: History of alcohol abuse, but has been sober for a few years. Dips tobacco 1 can a day. No illicit drugs. DRUG ALLERGIES: No known allergies. MEDICATIONS: No home medications. REVIEW OF SYSTEMS: Pertinent positives are noted in the HPI. PHYSICAL EXAMINATION: Vital Signs: Temperature 97.3 degrees, pulse rate 76, respiratory rate 20, blood pressure 123/69, O2 saturation 100% on room air, 0/10 pain. General: On physical exam, unkempt, partially confused male in no acute distress. HEENT: Sclerae are anicteric. PERRLA. Oral mucosa dry. Cardiovascular: S1, S2. Regular rate and rhythm. Respiratory: Breath sounds clear to auscultation. Abdomen: Soft, nontender, nondistended. Extremities: No edema noted. Neurological: Alert and oriented x3. LABORATORY: WBCs 8.94, hemoglobin 8.2, hematocrit 25.9, platelet count 303,000, creatinine 3.8. CEA 7.3, iron 17, ferritin 15, B 12 215, folate 3.6. RADIOLOGY: 1. Chest CT shows pulmonary nodules in the right lower lobe, possibly metastatic disease. No acute disease. 2. Brain MRI: A few chronic periventricular lacunar infarcts and minimal cortical encephalomalacia involving the right occipital lobe and moderate right matter microangiopathy, no acute intracranial pathology. 3. Abdomen and pelvis CT showed cholelithiasis. Left nephrolithiasis with dilated renal pelvis. Prominent seminal vesicles. 4. Chest x-ray: COPD. ASSESSMENT AND PLAN: 1. Colon mass. We will await pathology. CEA is slightly elevated. Staging scans as above. We will continue to follow. 2. Anemia. The patient's iron is noted to be low, as well as his B 12 and folic acid. We see he has been placed on oral iron, B 12 and folic acid. Continue with this. Transfusion as needed. We will continue to monitor closely. 3. Deep venous thrombosis prophylaxis. The patient has on sequential compression devices. 4. Acute kidney injury versus chronic kidney disease. Continue recommendations per Nephrology. Continue intravenous fluids. 5. Urinary tract infection. Continue the patient on antibiotics per medical management. Dictated by ABA Marti for Kan Navas MD Patient seen and examined. Colon mass. Proceed with surgery. Small lung nodules, which will need to be followed closely. IV iron as ordered. B12 being repleted. Discussed with Dr. Gross. Will follow with you. Thank you. Kan Navas MD cc: Kan Navas MD [facility]
--- NOTE | 2019-05-26 20:10 | PROGRESS NOTE ---
DATE: 05/26/2019 SUBJECTIVE: The patient had a colonoscopy earlier this morning. He states that he wants to go home, but wants to find out what is wrong with his kidneys. OBJECTIVE: Vital Signs: Temperature 97.3 degrees, blood pressure 115/66, heart rate 84, respirations 20, O2 saturation is 97% on room air. General: This is a chronically ill-appearing, elderly male, sitting up in bed in no acute distress. Heart: S1, S2 normal. Regular rate and rhythm. Lungs: Clear to auscultation bilaterally. No wheezing. No rales. No rhonchi. Abdomen: Positive bowel sounds. Soft, nontender, nondistended. Extremities: No edema. No cyanosis. Neurologic: Alert and oriented x3. LABORATORY AND DIAGNOSTIC DATA: White blood cell count 8.9, hemoglobin 8.2, hematocrit 25, platelets 303,000. Sodium 138, potassium 4.3, chloride 107, CO2 of 22, BUN 25, creatinine 3.8, glucose 89, calcium 8.1. Chest CT reveals pulmonary nodules in the right lower lobe. ASSESSMENT AND PLAN: 1. Sigmoid colon mass. General Surgery and Oncology have been consulted. We will await further recommendations. 2. Metabolic encephalopathy. Improved. 3. Acute kidney injury versus chronic kidney disease. The workup is in progress. 4. Urinary tract infection secondary to oxacillin-sensitive Staphylococcus aureus. Continue with antibiotic therapy. 5. Uncontrolled hypertension. The patient is on labetalol and Norvasc. Continue to monitor. 6. Iron deficiency anemia. The patient is on iron replacement. 7. Deep vein thrombosis prophylaxis. Continue with SCDs. cc: MD ELIE Brannon
--- NOTE | 2019-05-26 20:29 | GENERAL SURGERY CONSULTATION ---
DATE: 05/26/2019 REASON FOR CONSULTATION: Sigmoid mass. CHIEF COMPLAINT: Altered mental status and syncope. HISTORY OF PRESENT ILLNESS: This is a 58-year-old gentleman who had a syncopal event and came to the emergency department where he was found to be anemic. He has had workup for this. It revealed a sigmoid mass consistent with cancer. Pathology is pending. His hematocrit has been as low as 20.1 on the . Denies hematochezia, changes in bowel movements. His mother of colon cancer at a relatively young age in her 40s or 50s. He has never had a colonoscopy. He lost almost 100 pounds he says over the last year as well. Denies any jaundice. He has no pain. PAST MEDICAL HISTORY: Hypertension. For the most part, he does not see a physician, though. He does use tobacco regularly. He is also noted to have a kidney stone that is being followed by the urology service while here. He has had worsening of his chronic renal insufficiency while here as well. He also has diabetes. PAST SURGICAL HISTORY: He has had numerous back surgeries that left him disabled and unable to work. SOCIAL HISTORY: He uses smokeless tobacco. Denies illicits. No alcohol. FAMILY HISTORY: Mother had kidney stones as well as colon cancer. REVIEW OF SYSTEMS: Ten-point review of systems negative except otherwise mentioned in HPI. PHYSICAL EXAMINATION: Vital signs: He is afebrile, pulse 86, blood pressure 123/69, oxygen saturation 100%. General: He is a chronically ill-appearing gentleman. He is alert in no acute distress. HEENT: No scleral icterus. No cervical mass. Cardiovascular: Normal rate. Pulmonary: No increased work of breathing. Abdomen: Soft, nontender, nondistended. Skin: Warm, dry without jaundice. Psychiatric: Appropriate affect. Neurologic: No gross deficits. Peripheral vascular: No lower extremity edema. Lymphatic: No cervical, axillary or inguinal adenopathy. LABORATORY DATA: White count is 8, hematocrit 25, creatinine is up to 3.8. This has been rising steadily while here. CEA is elevated at 7.3. His liver function was normal. He has had a noncontrast scan of the abdomen that shows cholelithiasis, nephrolithiasis, and prominent seminal vesicles. He had a brain MRI that showed chronic changes but no acute lesions or infarcts. Echocardiogram showed normal ejection fraction. He had a CT of the chest today that shows pulmonary nodules, right lower lobe, concern for possible metastatic disease. ASSESSMENT AND PLAN: A 58-year-old gentleman with a sigmoid mass consistent with cancer. A CT of his chest did show indeterminate nodule in the lower lung. I am going to get an abdominal ultrasound to evaluate his liver to evaluate for hepatic metastasis. He is not obstructed. He has had some subclinical bleeding from this resulting in anemia, so he will ultimately benefit from sigmoid colectomy I feel even if this is a palliative operation, otherwise he has been transfused. The urologists are following regarding his renal dysfunction and his nephrolithiasis, and we will plan once stable medically to perform a lap-assisted sigmoid colectomy. We discussed this with the patient, and he understands. We will follow along. cc: Milagro Mitchell MD MTDD
[2019-05-26] MEDS: PERICOLACE PO SCH (20:33)
[2019-05-26] MEDS: LIPITOR PO SCH (20:33)
--- NOTE | 2019-05-26 22:14 | HEMO/ONC CONSULTATION ---
DATE: 05/26/2019 REQUESTING PHYSICIAN: Dr. Fuentes. REASON FOR CONSULTATION: Colon mass. HISTORY OF PRESENT ILLNESS: Mr. Vazquez Hunter is a 58-year-old male who initially presented to the emergency department after being found passed out on the floor of his home. He had some confusion once he got to the hospital. They found him to have anemia, and they proceed with workup. He was found to have iron deficiency and occult blood. He had an upper endoscopy which was negative. This was followed by a colonoscopy which showed a near circumferential mass, and multiple biopsies were taken and are currently pending. This is highly suspicious for colon cancer. We have been consulted to help with the management of the patient. PAST MEDICAL HISTORY: Positive for diabetes. PAST SURGICAL HISTORY: Positive for back surgery. SOCIAL HISTORY: The patient does tobacco dip about 1 can per day. He denies any illicit drug use. He lives with a roommate. He has previously abused alcohol but not in the last few years. FAMILY HISTORY: Positive for colon cancer in his mother. He also has diabetes and heart disease in his family. REVIEW OF SYSTEMS: As per the HPI. All else is negative or noncontributory. PHYSICAL EXAMINATION: Vital Signs: Temperature 97.3, heart rate 84, respirations 20, blood pressure 174/82, O2 saturation 100% on room air. General: This is a male sitting in his hospital bed. He is in no acute distress. He has a friend/family member at bedside. Head: Normocephalic, atraumatic. Eyes: Pupils equal, round, and reactive. Ears, nose, throat, neck and mouth: Oral mucosa is normal. Cardiovascular: S1, S2 heard. No murmurs, gallops or rubs appreciated. Respiratory: Chest is clear. Gastrointestinal: Abdomen is soft, with positive bowel sounds. Musculoskeletal: No bony abnormalities. Skin: No rash. Neurologic: The patient is alert and oriented. LABS AND STUDIES: White blood cells today are 8.94, hemoglobin 8.2, platelet count 303. Sodium is 139, potassium 4.3, chloride 107. CO2 is 22, BUN is 25, creatinine is up to 3.8. Abdominal/pelvic CT shows cholelithiasis, nephrolithiasis. It is noncontrasted, given the patient's creatinine. He also has had a chest CT which shows pulmonary nodules in the right lower lobe. The possibility of metastatic disease cannot be excluded, though there are no other nodules elsewhere. No evidence of acute disease. The patient's CEA is at 7.3. He also is quite iron deficient with a ferritin of 15. ASSESSMENT/PLAN: 1. Colon mass. This is highly suspicious for cancer. Biopsies are currently pending. We need to get a tissue diagnosis and likely consider a PET scan as an outpatient. This was discussed with the patient. 2. Iron deficiency. The patient has received 1 unit of packed red blood cells since being admitted to the hospital. We will give him additional parental iron. He is already getting oral iron. 3. Diabetes. Management per the primary team. 4. Urinary tract infection. Continue current antibiotic therapy. 5. Acute kidney injury versus chronic kidney disease. Dr. Ramirez is on board. Management per him and his team. 6. Uncontrolled hypertension. He is currently on Norvasc. The hospitalists are managing his blood pressure. Thank you for consulting us on Mr. Hunter. We will continue to follow along and adjust our treatment plan per his hospital course. Dictated by AMBIKA Connelly for Justyna Connors MD cc: Justyna Connors MD Pt seen and examined and above note reflects my history, physical exam, assessment and plan. Justyna BOYDD
[2019-05-27] MEDS: ROCEPHIN 1 GM in NS 50 ML IV SCH (02:38)
[2019-05-27 07:23] LABS: HEMATOCRIT 22.1 % (42.0-52.0); MCH 25.8 PG (27-31); MCHC 31.7 g/dL (33-37); MCV 81.5 FL (81-99); MPV 10.2 FL (7.4-10.4); PLT 255 X1000 (130-400); RBC 2.71 XMIL (4.7-6.1)
[2019-05-27 08:18] LABS: ALBUMIN 2.1 g/dL (3.5-5.0); CALCIUM 7.7 mg/dL (8.8-10.2); PHOSPHORUS 4.8 mg/dL (2.7-4.5); POTASSIUM 3.6 mmol/L (3.5-5.1)
[2019-05-27] MEDS: TRANDATE PO SCH ×2 (09:31→20:19)
[2019-05-27] MEDS: NORVASC PO SCH (09:31)
[2019-05-27] MEDS: SODIUM CHLORIDE 0.9% INJ SCH ×2 (09:31→20:20)
[2019-05-27] MEDS: VITAMIN B-12 PO SCH (09:31)
[2019-05-27] MEDS: FERROUS SULFATE PO SCH (09:31)
[2019-05-27] MEDS: FOLIC ACID PO SCH (09:31)
[2019-05-27] MEDS: PROTONIX IV SCH ×2 (09:31→20:20)
[2019-05-27] MEDS: MIRALAX PO SCH (09:32)
[2019-05-27] MEDS ORDERED: NS 500 ML IV ONE (12:41)
--- NOTE | 2019-05-27 14:03 | PROGRESS NOTE ---
DATE: 05/27/2019 SUBJECTIVE: The patient states that he is hungry and wants something solid to eat. OBJECTIVE: Vital Signs: Temperature 98.6 degrees, blood pressure 109/54, heart rate 73, respirations 16, O2 saturation is 99% on room air. General: This is a chronically ill-appearing, elderly male lying in bed, in no acute distress. Heart: S1, S2 normal. Regular rate and rhythm. Lungs: Equal air entry bilaterally. No wheezing. No rales. No rhonchi. Abdomen: Positive bowel sounds. Soft, nontender, nondistended. Extremities: Trace pedal edema. Neurologic: The patient is alert and oriented x3. Labs: White blood cell count 2.7, hemoglobin 7, hematocrit 22, platelets 255,000. Sodium 139, potassium 3.6, chloride 108, CO2 of 22, BUN 27, creatinine 4, glucose 82. ASSESSMENT AND PLAN: 1. Sigmoid mass. The patient will require resection. Further recommendations to follow from the general surgeon. Oncology is following. 2. Iron deficiency anemia. We will transfuse 2 units of packed red blood cells today. 3. Acute kidney injury on chronic kidney disease. The creatinine continues to rise. Further recommendations to follow from the bookkeeping assistant. 4. Folate deficiency. Continue with folic acid. 5. Hypertension. Continue on the current antihypertensive regimen. 6. Metabolic encephalopathy. Improved. 7. Pulmonary nodules. Aware. 8. Deep vein thrombosis prophylaxis. Continue with sequential compression devices. cc: Nena Gross MD MTDD
--- NOTE | 2019-05-27 15:01 | GASTROENTEROLOGY PROGRESS NOTE ---
DATE: 05/27/2019 SUBJECTIVE: Mr. Hunter is a 58-year-old male sitting at the side of the bed. The patient was concerned about his colonoscopy findings. He complained of nausea and vomiting. He did have 2 bowel movements today. The patient has denied noticing any further bleeding episodes. OBJECTIVE: Vital Signs: Temperature 98.6 degrees, pulse 73, respirations 16, blood pressure 109/54, oxygen saturation 99% on room air. The patient's weight is 131 pounds. BMI is 19.4 kg/m2. General: He is alert, oriented x3, and in no acute distress. HEENT: Pale conjunctivae. No icterus. PERRL. Neck: Supple. Lungs: Wheezing heard in the upper anterior lobes. Cardiovascular: Regular rate and rhythm. Abdomen: Soft. Tender in the epigastric area. Active bowel sounds heard in all 4 quadrants. Extremities: No cyanosis, no clubbing. Generalized edema in the lower extremities. Neurologic: He is alert, oriented x3. LABORATORY DATA: WBCs 8.94, RBCs 2.71, hemoglobin is 7.0, hematocrit is 22.1, platelet count is 255,000. Sodium is 139, potassium is 3.6, chloride 108, carbon dioxide 22, anion gap 9, BUN 27, creatinine 4.0, glucose 82, calcium 7.7, phosphorus 4.8, albumin is 2.1. IMAGING: His chest CT yesterday showed pulmonary nodules in the right lower lobe, possibility of metastatic disease cannot be ruled out, although there are no other nodules elsewhere. EGD AND COLONOSCOPY: The patient had an EGD done yesterday, it was normal. Duodenum biopsies were performed to rule out celiac disease. A colonoscopy was done and a near circumferential mass was found located 20 cm from the point of entry and in the sigmoid colon. Multiple biopsies were performed and a tattoo was applied. A few small subcentimeter polyps were found. IMPRESSION AND PLAN: 1. Anemia. 2. Sigmoid mass. 3. Constipation. 4. Nausea and vomiting. PLAN: Mr. Hunter is a 66-year-old male. GI has been following him for his anemia and GI bleed. The patient had an EGD and colonoscopy done yesterday. His EGD was normal, but colonoscopy showed that he had a mass in the sigmoid colon. Oncology and Surgery are following the patient. We will continue patient with Protonix 40 mg twice a day. The patient is on antiemetic Zofran for his nausea and vomiting. Patient is on ferrous sulfate 325 mg p.o. daily for his anemia. For his bowel regimen, he is on Urvashi Colace and MiraLAX twice a day. The patient's hemoglobin today is 7.0 and hematocrit is 22.1. The patient has so far received 1 unit of blood. We will continue to monitor the patient and provide supportive care and follow the plan of care per PCP, surgeon and the oncologist. This plan was discussed with Dr. Shah. Please call us for any further questions or concerns. Dictated by ABA Bowen for Nghia Shah MD cc: Nghia Shah MD I have seen and examined the patient myself and I agree with the above plan of care. Please call us with any further questions or concerns. MTDD
--- NOTE | 2019-05-27 15:32 | Diag Imaging Result Doc PS360 ---
EXAM: US GB < RUQ (LIMITED) HISTORY: evaluate for hepatic mets TECHNIQUE: Right upper quadrant ultrasound COMPARISON: CT from 05/24/2019 FINDINGS: Normal inferior vena cava. No abdominal aortic aneurysm. Normal pancreas. No focal and amount T2 the liver. There is a small right renal cyst. No hydronephrosis. Common bile duct measures 5 mm. Multiple stones fill the gallbladder. No ascites in the right upper quadrant. IMPRESSION: 1.Cholelithiasis 2.No hepatic mass identified Electronically signed by César Brown 05/27/2019 3:30 PM
[2019-05-27] MEDS: ZOFRAN IV PRN (15:51)
[2019-05-27 15:56] LABS: UR CREATININE 115.1 mg/dL (14-26)
[2019-05-27 16:01] LABS: UR CREATININE TOTAL 149.6 mg/24 (800-1800)
--- NOTE | 2019-05-27 16:58 | HEMO/ONC PROGRESS NOTE ---
DATE: 05/27/2019 SUBJECTIVE: Mr. Hunter is sitting up in bed this morning, watching TV. He states he feels pretty good today. He does not have any pain. He is aware of person, place, and time. However, he does not remember the events surrounding when he was found. He is aware he has an abdominal mass and he wants it out. He states that he would like surgery as soon as possible. Surgery has been consulted for evaluation. The patient states he had a good night's sleep and denies any acute events overnight. OBJECTIVE: Vital Signs: Temperature 97.6 degrees, pulse rate 83, respiratory rate 18, blood pressure 178/86, O2 saturation 99% on room air. He is in 0/10 pain. PHYSICAL EXAMINATION: General: Chronically ill-appearing, disheveled gentleman in no acute distress. HEENT: Sclerae is anicteric. PERRLA. Oral mucosa is dry. Cardiovascular: Normal S1, S2. Heart rate and rhythm regular. Respiratory: Lung sounds are clear bilaterally. Abdomen: Slightly distended. Positive bowel sounds. Soft, nontender. Extremities: No lower extremity edema noted. Neurological: Alert and oriented x3. LABORATORY: Hemoglobin 7.0, hematocrit 22.1, platelet count 255,000, creatinine 4.0, calcium 7.7, phosphorus 4.8. ASSESSMENT AND PLAN: 1. Sigmoid colon mass. Awaiting recommendation from General surgeon. Awaiting pathology from the biopsy. CEA is slightly elevated. We will continue to follow. 2. Iron deficiency anemia. The patient's hemoglobin and hematocrit are significantly low today. Patient's iron profile is also low. We see that he has been given 1 dose of Venofer. The patient may require a second dose. The patient may require transfusion as needed for hemoglobin less than 7. We will continue to monitor. 3. Deep venous thrombosis prophylaxis. Continue the patient on sequential compression devices. B12 and folate deficiencies. Continue the patient on replacement. 4. Acute kidney injury on chronic kidney disease. The patient's creatinine continues to be elevated. Continue recommendations per Nephrology. Dictated by ABA Marti for Kan Navas MD As above. Proceed with surgery. Will evaluate pulmonary nodules post-op with PET. Will decide on chemo treatment then. Call with questions. Thanks. Kan Navas MD cc: Kan Navas MD [facility]
--- NOTE | 2019-05-27 19:41 | NEPHROLOGY PROGRESS NOTE ---
DATE: 05/27/2019 SUBJECTIVE: Mr. Hunter is resting quietly in bed. He has no specific complaints. Admits that he has been told that he has colon cancer and that he needs to have surgery with a possible colostomy with a colectomy. He has seen several physicians yesterday. He is unsure of what they have all indicated that his plan of action will be. OBJECTIVE: His most recent vital signs temperature 98.7 degrees, blood pressure 96/45, heart rate 69, respirations 18. He is on room air. Last recorded saturation 99%. He has had 1104 in, 700 out to void. LABORATORY DATA: Sodium 139, potassium 3.6, chloride 108, CO2 22, BUN 27, creatinine 4, glucose 82, anion gap is 9, calcium 7.7, phosphorus 4.8, albumin 2.1. Hemoglobin 7 with hematocrit of 22.1 repeated this a.m. The patient had a chest CT yesterday showing nodules to the lower lobes indicating cannot rule out metastasis. PHYSICAL EXAMINATION: General: This is a 58-year-old white male resting quietly in bed. He appears chronically ill, in no acute distress. Skin: Warm and dry. HEENT: Normocephalic, atraumatic. Conjunctiva is pale pink. He has ALFREDO. Mucous membranes are moist. Neck: Supple. Trachea midline. No evidence of JVD. Cardiovascular: Regular rate and rhythm. No murmur or gallop. Lungs: Clear to auscultation bilaterally. Equal excursion on room air. Abdomen: Soft, nontender. Positive bowel sounds. Genitourinary: Not inspected. Extremities: Continues with 1 to 2+ lower extremity edema to the bilateral lower extremities pretibial areas. Neurological: Alert and oriented x3. ASSESSMENT AND PLAN: 1. Acute on chronic kidney disease. Baseline creatinine unknown. A 24 hour urine is currently in progress. We will continue to await for these results. 2. Electrolytes and acid-base balance. These are acceptable. 3. Anemia. Hemoglobin has continued to drop down to 7. He now has Hematology/Oncology on board. We will defer for possible transfusions. 4. Colon cancer. This is now being followed by Hematology/Oncology and by Dr. Mitchell for possible sigmoid colectomy. I would like to thank you for allowing us to follow with this patient. Dictated by ABA Perdomo for Hunter Ramirez MD Face to face encounter, data reviewed, discussed with with Cornell Betancourt on 05/27/19. I agree with the above assessment and plan of care. cc: ABA Perdomo MD [facility]
[2019-05-27] MEDS: LIPITOR PO SCH (20:19)
[2019-05-27] MEDS: PERICOLACE PO SCH (20:19)
--- NOTE | 2019-05-27 22:01 | GENERAL SURGERY PROGRESS NOTE ---
DATE: 05/27/2019 SUBJECTIVE: He feels okay. He is having some diarrhea. No fevers. No tachycardia. OBJECTIVE: Vital Signs: Blood pressure 136/59. General: He is alert. Cardiovascular: Normal rate. Pulmonary: No increased work of breathing. Abdomen: His abdomen is soft, nontender, nondistended. LABORATORY: Hematocrit is down a little bit to 22. His creatinine is up to 4. Albumin is low 2.1. He has not had his abdominal ultrasound. 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 ASSESSMENT AND PLAN: This is a 58-year-old gentleman with a large bleeding sigmoid mass concerning for cancer. Although the path that showed a tubulovillous adenoma, I do worry that he has invasive carcinoma. His CT of the chest was concerning for possible lung lesions as well. We will get an ultrasound of his liver, given his renal dysfunction. Dr. Navas has seen the patient. The CEA is elevated. We will continue to follow along. cc: Milagro Mitchell MD
[2019-05-28] MEDS: MIRALAX PO SCH ×3 (00:26→22:27)
[2019-05-28] MEDS: ROCEPHIN 1 GM in NS 50 ML IV SCH (03:14)
[2019-05-28 07:20] LABS: HEMATOCRIT 28.7 % (42.0-52.0); HEMOGLOBIN 9.3 g/dL (14.0-18.0); MCH 26.6 PG (27-31); MCHC 32.4 g/dL (33-37); MCV 82.2 FL (81-99); RBC 3.49 XMIL (4.7-6.1); RDW 14.9 % (11.5-14.5); WBC 8.25 X1000 (4.8-10.8)
[2019-05-28 08:51] LABS: ALBUMIN 2.4 g/dL (3.5-5.0); CALCIUM 7.8 mg/dL (8.8-10.2); CREATININE 4.1 mg/dL (0.7-1.2); POTASSIUM 4.2 mmol/L (3.5-5.1)
[2019-05-28] MEDS: SODIUM CHLORIDE 0.9% INJ SCH ×2 (09:58→22:00)
[2019-05-28] MEDS: TRANDATE PO SCH ×2 (09:59→22:00)
[2019-05-28] MEDS: NORVASC PO SCH (09:59)
[2019-05-28] MEDS: PROTONIX IV SCH ×2 (09:59→22:00)
[2019-05-28] MEDS: VITAMIN B-12 PO SCH (09:59)
[2019-05-28] MEDS: FERROUS SULFATE PO SCH (09:59)
[2019-05-28] MEDS: FOLIC ACID PO SCH (09:59)
--- NOTE | 2019-05-28 14:34 | HEMO/ONC PROGRESS NOTE ---
DATE: 05/28/2019 SUBJECTIVE: Mr. Hunter is doing well this morning. He has no new complaints. No acute events occurred overnight. OBJECTIVE: Vital Signs: Temperature 98.6 degrees, pulse rate 78, respiratory rate 16, blood pressure 143/68, and O2 saturation 100% on room air in 0/10 pain. General: Chronically ill- appearing, disheveled gentleman in no acute distress. HEENT: Sclerae is anicteric. PERRLA. Oral mucosa slightly dry. Cardiovascular: Normal S1, S2. Heart rate and rhythm regular. Respiratory: Lung sounds are clear bilaterally. Abdomen: Slightly distended. Positive bowel sounds. Soft and nontender. Extremities: No lower extremity edema noted. Neurological: Alert and oriented x3. LABORATORY: WBCs 8.25, hemoglobin 9.3, hematocrit 28.7, and platelet count 255,000. Creatinine 4.1, calcium 7.8, phosphorus 5.0, albumin 2.4. RADIOLOGY: Abdominal ultrasound. Assessment: Cholelithiasis. No hepatic mass identified. ASSESSMENT AND PLAN: 1. Large bleeding sigmoid colon mass. We would like to proceed with surgery. The patient is also in agreement. We will evaluate pulmonary nodules postop with a PET scan. We will decide on chemo treatment at that time. We will monitor the patient peripherally. We will follow up with him outpatient. Please call us if needed. 2. Iron deficiency anemia. The patient's hemoglobin and hematocrit remain low. He did receive 3 units of packed red blood cells and 1 dose of IV iron. Continue to monitor. 3. Deep venous thrombosis prophylaxis. Continue the patient on sequential compression devices. 4. B12 and folate deficiencies. Continue the patient on replacement. 5. Acute kidney injury versus chronic kidney injury. The patient's creatinine continues to elevate. Continue recommendations per Nephrology, and keep him on IV fluids. Dictated by ABA Marti for Kan Navas MD cc: Kan Navas MD [facility]
--- NOTE | 2019-05-28 15:40 | GASTROENTEROLOGY PROGRESS NOTE ---
DATE: 05/28/2019 SUBJECTIVE: Mr. Hunter is a 58-year-old male. He was sitting on the side of the bed. The patient denied any nausea and vomiting. He mentioned that after he was eating regular food, he is feeling much better. The patient has mentioned noticing that his stools are still dark. He did have 1 bowel movement today. OBJECTIVE: Vital Signs: Temperature 98.7 degrees, pulse 73, respirations 16, blood pressure 143/73, oxygen saturation 99% on room air. The patient's weight is 126 pounds. BMI is 18.7 kg/m2. General: He is alert, oriented x3, and in no acute distress. HEENT: Pale conjunctivae. No icterus. PERRL. Neck: Supple. Lungs: Wheezing heard in the upper anterior lobes. Cardiovascular: Regular rate and rhythm. Abdomen: Soft, nontender, nondistended. Active bowel sounds heard in all 4 quadrants. Extremities: No cyanosis. No clubbing. Generalized edema in the lower extremities. Neurologic: He is alert and oriented x3. LABORATORY DATA: WBC is 8.25, RBC 3.49, hemoglobin 9.3, hematocrit is 28.7, platelet count is 255,000. Sodium 138, potassium 4.2, chloride 107, carbon dioxide 22, anion gap is 9, BUN 28, creatinine is 4.1, glucose 88, calcium 7.8, phosphorus is 5.0, albumin is 2.4. The patient's urinalysis yesterday showed protein of 413. IMAGING: His abdominal ultrasound yesterday showed cholelithiasis. No hepatic mass identified. IMPRESSION AND PLAN 1. REINA 2. Sigmoid mass. 3. Constipation - resolved 4. Nausea and vomiting - resolved 5. Colon polyps. 6. Cholelithiasis 7. ISRRAEL PLAN: Mr. Hunter is a 58-year-old male, GI is following him for his anemia and GI bleed. The patient has been complaining that his stools are still dark. His hemoglobin and hematocrit today are 9.3 and 28.7, they have trended upwards. The patient has denied any nausea and vomiting. We will continue the patient with Zofran, antiemetics 4 mg every 4 hours as needed. He is on Protonix 40 mg IV twice a day. For his anemia, the patient is on ferrous sulfate 325 mg daily. The patient's abdominal ultrasound yesterday showed that he has cholelithiasis, but no hepatic mass identified. Surgery and Oncology is following the patient. We will continue to monitor the patient and follow the plan of care per PCP, Surgery and Oncology. This plan was discussed with Dr. Fuentes. Please call us for any further questions or concerns. Dictated by ABA Bowen for Dimas Fuentes MD Physician Attestation I have seen and examined the patient. I have discussed and reviewed the note by Tressa TRONCOSO and agree with findings and plan as documented. In brief, Mr. Hunter is a 58 year old man who was admitted for AMS found to have REINA and ISRRAEL. He underwent EGD and colonoscopy that revealed a large fungating distal sigmoid mass concerning for CRC. CEA is elevated at 7.3 and biopsies showed TVA with HGD. Clinical suspicion for CRC is very high. There were no signs of active GI bleeding on EGD or colonoscopy. However, his REINA most likely from known mass. The remainder of the prep was inadequate to rule out polyps <1cm or flat lesions. CT chest showed some pulmonary lesions, which may represent metastatic disease. Dr. Navas and Dr. Mitchell are following. Also, Dr. Ramirez given ISRRAEL. He currently denies any N/V, abdominal pain, and is tolerating diet. Creatinine remains elevated. If patient is not going for surgery during this hospitalization and biopsies repeat biopsies are required from primary mass, then GI would be amendable to sigmoidoscopy for repeat biopsies. Otherwise, will follow peripherally. Please call with questions. MTDD
[2019-05-28 18:45] LABS: URINE SOURCE CLEAN CATCH
[2019-05-28 18:49] LABS: BILIRUBIN URINE NEGATIVE (NEGATIVE); BLOOD URINE SMALL (NEGATIVE); COLOR YELLOW; GLUCOSE URINE TRACE mg/dL (NEGATIVE); KETONE URINE NEGATIVE (NEGATIVE); LEUKOCYTES URINE NEGATIVE (NEGATIVE); NITRITE URINE NEGATIVE (NEGATIVE); PROTEIN URINE 200 mg/dL (NEGATIVE); TURBIDITY URINE CLEAR (CLEAR); UROBILINOGEN URINE NORMAL (NORMAL)
[2019-05-28 18:50] LABS: UR EPITHELIAL CELLS <10 /HPF (<10); URINE BACTERIA NEGATIVE /HPF; URINE RBC <10 /HPF (<10); URINE WBC <10 /HPF (<10)
[2019-05-28 19:36] LABS: UR CREAT RANDOM 61.3 mg/dL (14-26); UR PROT RANDOM 228.3 mg/dL
--- NOTE | 2019-05-28 20:40 | NEPHROLOGY PROGRESS NOTE ---
DATE: 05/28/2019 SUBJECTIVE: He is lying in bed. States his nausea and vomiting are better, and he has been able to eat. No shortness of breath. OBJECTIVE: Blood pressure 143/68, heart rate 78, respirations 16, afebrile.General: No acute distress. Skin: Warm and dry. Neck: Veins not appreciated. Heart: Regular. Lungs: Equal. No crackles. Abdomen: Benign. Extremities: Trace edema. No clubbing or cyanosis. IMPRESSION/PLAN: Renal failure. It is not clear whether this is acute or chronic. It seems much more likely to be chronic, however. I will complete the database. Consider kidney biopsy if appropriate in order to coordinate ongoing care. cc: Hunter Ramirez MD
[2019-05-28] MEDS: LIPITOR PO SCH (22:00)
[2019-05-28] MEDS: PERICOLACE PO SCH (22:00)
--- NOTE | 2019-05-28 22:06 | PROGRESS NOTE ---
DATE: 05/28/2019 SUBJECTIVE: The patient is resting comfortably in bed. He has no complaints at this time. OBJECTIVE: Vital Signs: Temperature 98.7, blood pressure 143/73, heart rate 73, respirations 16, O2 saturation 99% on room air. General: This is a [id number]-kjh-kusugimry elderly male lying in bed in no acute distress. Heart: S1, S2 normal. Regular rate and rhythm. Lungs: Clear to auscultation bilaterally. Abdomen: Positive bowel sounds. Soft, nontender, nondistended. Extremities: Trace pedal edema. No cyanosis. No calf tenderness. Neurologic: The patient is alert and oriented x4. LABS: White blood cell count 8.2, hemoglobin 9.3, hematocrit 28, platelets 255. Sodium 138, potassium 4.2, chloride 107, CO2 22, BUN 28, creatinine 4.1, glucose 88. ASSESSMENT AND PLAN: 1. Sigmoid mass. 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 We will await further recommendations from the general surgeon. 2. Acute kidney injury versus chronic kidney disease. Stable. Continue to monitor closely. Management as per Dr. Ramirez. 3. Iron-deficiency anemia. Improved. The patient received 2 units of packed red blood cells yesterday. 4. Folate deficiency. Continue on folic acid. 5. Hypertension. Continue on current antihypertensive regimen. 6. Pulmonary nodules. Aware. 7. Deep vein thrombosis prophylaxis. Continue with SCDs. cc: Nena Gross MD MTDD
[2019-05-29] MEDS: ROCEPHIN 1 GM in NS 50 ML IV SCH (02:35)
[2019-05-29 08:15] LABS: HEMATOCRIT 27.2 % (42.0-52.0); HEMOGLOBIN 8.7 g/dL (14.0-18.0); MCH 26.4 PG (27-31); MCV 82.7 FL (81-99); MPV 10.6 FL (7.4-10.4); RBC 3.29 XMIL (4.7-6.1); RDW 14.8 % (11.5-14.5); WBC 9.13 X1000 (4.8-10.8)
[2019-05-29 08:49] LABS: ALBUMIN 2.3 g/dL (3.5-5.0); CALCIUM 7.7 mg/dL (8.8-10.2); CREATININE 4.4 mg/dL (0.7-1.2); PHOSPHORUS 4.2 mg/dL (2.7-4.5); POTASSIUM 3.9 mmol/L (3.5-5.1)
[2019-05-29] MEDS: ZOFRAN IV PRN ×3 (10:11→20:52)
[2019-05-29] MEDS ORDERED: NS 1,000 ML IV SCH (11:30)
[2019-05-29] MEDS: SODIUM CHLORIDE 0.9% INJ SCH ×2 (11:46→20:52)
[2019-05-29] MEDS: PROTONIX IV SCH ×2 (11:46→20:51)
[2019-05-29] MEDS: TRANDATE PO SCH ×2 (11:47→20:51)
[2019-05-29] MEDS: NORVASC PO SCH (11:47)
[2019-05-29] MEDS: MIRALAX PO SCH (11:47)
[2019-05-29] MEDS: VITAMIN B-12 PO SCH (11:47)
[2019-05-29] MEDS: FOLIC ACID PO SCH (11:47)
[2019-05-29] MEDS: FERROUS SULFATE PO SCH (11:47)
--- NOTE | 2019-05-29 13:19 | PROGRESS NOTE ---
DATE: 05/29/2019 SUBJECTIVE: Mr. Vazquez Hunter is a 58-year-old white male. He has seen been seen by Dr. Mitchell because of a sigmoid mass. Evidently, he also has gallstones. He also has acute renal failure and kidney stones. He is being treated medically with plans for the future to perform a sigmoid colectomy per Dr. Mitchell. This morning, he is awake. He seems to be comfortable. He is on a renal failure diet. His abdomen is soft. His BUN and creatinine are 28 and 4.4. His hematocrit appears to be stable at 28%. White blood cell count is normal. cc: Yumiko Penn MD
[2019-05-29] MEDS ORDERED: IMODIUM PO PRN (17:11)
--- NOTE | 2019-05-29 19:10 | PROGRESS NOTE ---
DATE: 05/29/2019 SUBJECTIVE: The patient reports that he has been having diarrhea every time he has a bowel movement. OBJECTIVE: Vital Signs: Temperature 98.2 degrees, blood pressure 139/84, heart rate 76, respirations 16, O2 saturations 100% on room air. General: This is a chronically ill-appearing elderly male sitting in bed in no acute distress. Heart: S1, S2 normal. Regular rate and rhythm. Lungs: Clear to auscultation bilaterally. Abdomen: Positive bowel sounds. Soft, nontender, nondistended. Extremities: No edema, no cyanosis. Neurologic: The patient is alert and oriented x3. LABS: White blood cell count 9.1, hemoglobin 8.7, hematocrit 27, platelets 253,000. Sodium 137, potassium 3.9, chloride 106, CO2 21, BUN 28, creatinine 4.4, glucose 140, calcium 7.7, phosphorus 4.2, albumin 2.3. ASSESSMENT AND PLAN: 1. Sigmoid mass. 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 We will await further recommendations from the general surgeon. 2. Iron deficiency anemia. The patient's hemoglobin and hematocrit are little bit lower today. Continue on iron supplementation. 3. Acute kidney injury versus chronic kidney disease. The patient's creatinine continues to rise. The patient reports that he has been having diarrhea for the last 2 or 3 days. We will start the patient on IV fluids. The case was discussed with Dr. Ramirez and he plans to do a renal biopsy this coming week. 4. Folate deficiency. Continue with folic acid replacement. 5. Hypertension. Continue on the current antihypertensive regimen. 6. Diarrhea. We will check stool studies. 7. Deep vein thrombosis prophylaxis. Continue with SCDs. 8. The patient has been encouraged to ambulate in the hallway as much as possible. cc: Nena Gross MD [facility]
[2019-05-29] MEDS: LIPITOR PO SCH (20:51)
[2019-05-30] MEDS: ZOFRAN IV PRN ×2 (01:52→09:17)
[2019-05-30] MEDS: ROCEPHIN 1 GM in NS 50 ML IV SCH (03:53)
[2019-05-30 06:56] LABS: HEMATOCRIT 26.3 % (42.0-52.0); HEMOGLOBIN 8.5 g/dL (14.0-18.0); MCH 26.7 PG (27-31); MCHC 32.3 g/dL (33-37); MCV 82.7 FL (81-99); MPV 10.5 FL (7.4-10.4); RBC 3.18 XMIL (4.7-6.1); RDW 14.7 % (11.5-14.5); WBC 8.91 X1000 (4.8-10.8)
[2019-05-30 07:01] LABS: INR 1.08; PROTIME 14.1 Seconds (11.0-16.0)
[2019-05-30 07:02] LABS: PTT 32.7 Seconds (22.3-41.8)
[2019-05-30 07:18] LABS: ALBUMIN 2.3 g/dL (3.5-5.0); CALCIUM 7.6 mg/dL (8.8-10.2); CREATININE 4.5 mg/dL (0.7-1.2); PHOSPHORUS 4.2 mg/dL (2.7-4.5)
--- NOTE | 2019-05-30 10:48 | PROGRESS NOTE ---
DATE: 05/30/2019 SUBJECTIVE: Mr. Keyon Hunter is a 58-year-old white male who has a sigmoid mass. Dr. Mitchell's been consulted for this. He is being treated for renal failure. His BUN and creatinine are 31 and 4.5. Those are stable. Dr. Mitchell returns tomorrow and further plans as far as his sigmoid mass could be made at that time. OBJECTIVE: Heart rate 78, blood pressure 130/86, O2 saturation 98%. He is afebrile. His white blood cell count is normal. Hematocrit is 26%. It has been stable. cc: Yumiko Penn MD
[2019-05-30] MEDS: SODIUM CHLORIDE 0.9% INJ SCH ×2 (11:56→23:03)
[2019-05-30] MEDS: PROTONIX IV SCH ×2 (11:56→23:03)
--- NOTE | 2019-05-30 14:01 | Diag Imaging Result Doc PS360 ---
ABDOMEN FLAT/UPRIGHT - 05/30/2019 INDICATION: nausea and vomiting COMPARISON: CT from 05/24/2019 FINDINGS: There is a stone projecting over the left kidney. No bowel obstruction or free air. No significant constipation. There are phleboliths in the pelvis. IMPRESSION: Left renal stone. Electronically signed by Jesus Patton 05/30/2019 1:58 PM
[2019-05-30] MEDS: TRANDATE PO SCH ×2 (16:55→23:02)
[2019-05-30] MEDS: FOLIC ACID PO SCH (16:55)
[2019-05-30] MEDS: VITAMIN B-12 PO SCH (16:55)
[2019-05-30] MEDS: NORVASC PO SCH (16:55)
[2019-05-30] MEDS: FERROUS SULFATE PO SCH (16:55)
--- NOTE | 2019-05-30 21:03 | PROGRESS NOTE ---
DATE: 05/30/2019 SUBJECTIVE: The patient states that he has been having intermittent episodes of nausea and vomiting. He states that he has no appetite. OBJECTIVE: Vital Signs: Temperature 98.3 degrees, blood pressure 122/62, heart rate 80, respirations 20, O2 saturation 97% on room air. General: This is a chronically ill-appearing elderly male lying in bed in no acute distress. Heart: S1, S2 normal. Regular rate and rhythm. Lungs: Clear to auscultation bilaterally. No wheezing. No rales. No rhonchi. Abdomen: Positive bowel sounds. Soft, nontender, nondistended. Extremities: 1+ edema to the legs. Neurologic: The patient is alert and oriented x3. LABS: White blood cell count 8.9, hemoglobin 8.5, hematocrit 26, platelets 238,000. Sodium 138, potassium 4, chloride 108, CO2 20, BUN 31, creatinine 4.5, glucose 113. Abdominal x-ray shows a left renal stone. ASSESSMENT AND PLAN: 1. Sigmoid mass. 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 We will await further recommendations from the general surgeon. 2. Acute kidney injury versus chronic kidney disease. The patient's creatinine continues to rise. The patient will be undergoing a renal biopsy this week. We will discontinue the IV fluids. 3. Folate deficiency. Continue with folic acid replacement. 4. Iron-deficiency anemia. Stable. 5. Hypertension. Controlled. 6. Deep vein thrombosis prophylaxis continue with sequential compression devices. cc: Nena Gross MD [facility]
[2019-05-30] MEDS: LIPITOR PO SCH (23:02)
[2019-05-31] MEDS: ROCEPHIN 1 GM in NS 50 ML IV SCH (05:59)
[2019-05-31 06:51] LABS: HEMATOCRIT 26.5 % (42.0-52.0); HEMOGLOBIN 8.4 g/dL (14.0-18.0); MCHC 31.7 g/dL (33-37); MPV 10.7 FL (7.4-10.4); RBC 3.23 XMIL (4.7-6.1); RDW 14.6 % (11.5-14.5); WBC 8.11 X1000 (4.8-10.8)
[2019-05-31 07:32] LABS: ALBUMIN 2.2 g/dL (3.5-5.0); CALCIUM 7.7 mg/dL (8.8-10.2); CREATININE 4.6 mg/dL (0.7-1.2); PHOSPHORUS 4.4 mg/dL (2.7-4.5); POTASSIUM 4.1 mmol/L (3.5-5.1)
[2019-05-31 09:04] LABS: INR 1.06
--- NOTE | 2019-05-31 10:17 | NEPHROLOGY PROGRESS NOTE ---
DATE: 05/31/2019 DATE AND TIME OF EXAM: 05/31/2019 at 0715 hours. SUBJECTIVE: Mr. Hunter is resting quietly in bed. States that he has had nothing by mouth because he is possibly having a procedure this morning of a renal biopsy. VITAL SIGNS: Temperature 97.5 degrees, blood pressure 111/61, heart rate 69, respirations 20. He is on room air. Last recorded saturation 100%. He has had 240 in, 725 out to void. LABORATORY DATA: Sodium 139, potassium 4.1, chloride 110, CO2 21. BUN 35, creatinine 4.6, glucose 79. Anion gap of 8, calcium 7.7, phosphorus 4.4, albumin is 2.2. White count 8.11, hemoglobin 8.5, hematocrit 26.5 with a platelet count of 264. Patient has had C3 and C4 complements. The C3 is low; C4 complement is stable. He has an TAYLOR and ANCA that are still currently pending, which have been received. The patient had a 24-hour urine questionable adequate sample showing creatinine clearance of 3% with 537 mg total proteinuria. PHYSICAL EXAMINATION: General: This is a 58-year-old white male. He is currently resting quietly in bed. He appears in no acute distress, although he appears chronically ill. Skin: Warm and dry. HEENT: Normocephalic, atraumatic. Conjunctiva is pale pink. He has ALFREDO. Mucous membranes are dry. Neck: Supple. Trachea midline. There is no evidence of JVD. Cardiovascular: Regular rate and rhythm. Sinus rhythm on the monitor. Lungs: Clear to auscultation bilaterally. Equal excursion on room air. Abdomen: Round, soft, nontender. Positive bowel sounds. Genitourinary: Not inspected. Patient has been voiding adequate amounts. Extremities: Continue with 1+ to 2+ lower extremity edema up into the mid thigh region. Integumentary: No rashes or lesions that are evident anterior upon inspection. Neurological: He is alert and oriented x3. ASSESSMENT AND PLAN: 1. Renal failure, unclear if this is acute or chronic. The patient had a creatinine clearance that shows a low creatinine clearance questionable adequate sample collection. We have discussed renal biopsy with the patient. He has been on nothing by mouth. I have discussed the renal biopsy with the patient again this morning. Under CT-guided renal biopsy per Radiology, patient is willing to proceed, though he is unsure if he would like to remain awake. I have discussed that he does need to remain awake during his procedure to cooperate with his breathing. Possible complications have been discussed in regards with bleeding at the puncture site. That we will continue to monitor his hemoglobin and he is to stay in bed until 6 p.m. this evening. 2. Electrolytes and acid-base balance. These are acceptable. 3. Anemia. This remains low, but stable. 4. Altered mental status. This has improved. I would like to thank you for allowing us to follow with this patient. He declined his biopsy today. I discussed this him. He states that he is becoming uncertain whether any of the information he has received is accurate. He is not sure he believes that he has cancer. We are glad to help with further diagnostic studies if he desires. rg Dictated by ABA Perdomo for Hunter Ramirez MD Face to face encounter, data reviewed, discussed with Cornell Betancourt on 05/31/19. I agree with the above assessment and plan of care. rg cc: ABA Perdomo MD [facility]
[2019-05-31] MEDS: ZOFRAN IV PRN (10:54)
[2019-05-31 13:31] LABS: ANTINEUTROPHIL CYTOPLASMIC AB SEE COMMENTS
[2019-05-31] MEDS: VITAMIN B-12 PO SCH (14:41)
[2019-05-31] MEDS: FERROUS SULFATE PO SCH (14:41)
[2019-05-31] MEDS: NORVASC PO SCH (14:41)
[2019-05-31] MEDS: TRANDATE PO SCH ×2 (14:41→23:34)
[2019-05-31] MEDS: PROTONIX IV SCH ×2 (14:41→23:34)
[2019-05-31] MEDS: FOLIC ACID PO SCH (14:42)
--- NOTE | 2019-05-31 16:37 | PROGRESS NOTE ---
DATE: 05/31/2019 SUBJECTIVE: The nursing staff reports that the patient is refusing to have his kidney biopsy done at this time, so the procedure was canceled. OBJECTIVE: Vital Signs: Temperature 98.6 degrees, blood pressure 145/75, heart rate 78, respiratory rate 18, O2 saturation 100% on room air. General: This is a chronically ill- appearing elderly male lying in bed in no acute distress. Heart: S1, S2 normal. Regular rate and rhythm. Lungs: Clear to auscultation bilaterally. Abdomen: Positive bowel sounds. Soft, nontender, nondistended. Extremities: 1+ edema. Neurologic: The patient is alert and oriented x4. LABS: White blood cell count 8.1, hemoglobin 9.4, hematocrit 26, platelets 264,000. Sodium 139, potassium 4.1, chloride 110, CO2 21, BUN 35, creatinine 4.6, glucose 79 calcium 7.7, albumin 2.2. ASSESSMENT AND PLAN: 1. Sigmoid mass. 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 We will await further recommendations from the general surgeon. 2. Acute kidney injury versus chronic kidney disease. The patient refused the renal biopsy today. We will continue to monitor closely. Nephrology is following. 3. Iron deficiency anemia. Continue with iron supplementation. 4. Folate deficiency. Continue with folic acid replacement. 5. Hypertension. Controlled. 6. Severe protein calorie malnutrition. We will consult with the dietitian. 7. Urinary tract infection secondary to oxacillin-sensitive Staphylococcus. The patient has had 10 days of antibiotic therapy. We will discontinue the Rocephin. 8. Deep vein thrombosis prophylaxis. Continue with sequential compression devices. cc: Nena Gross MD [facility]
[2019-05-31] MEDS: SODIUM CHLORIDE 0.9% INJ SCH (23:34)
[2019-05-31] MEDS: LIPITOR PO SCH (23:34)
[2019-05-31] MEDS: HEPARIN SUBQ SCH (23:42)
[2019-06-01] MEDS: ZOFRAN IV PRN ×2 (00:46→08:59)
[2019-06-01 07:15] LABS: HEMATOCRIT 26.4 % (42.0-52.0); HEMOGLOBIN 8.3 g/dL (14.0-18.0); MCH 25.9 PG (27-31); MCHC 31.4 g/dL (33-37); MCV 82.5 FL (81-99); MPV 10.9 FL (7.4-10.4); RBC 3.2 XMIL (4.7-6.1); RDW 14.8 % (11.5-14.5); WBC 8.13 X1000 (4.8-10.8)
[2019-06-01 07:30] LABS: ALBUMIN 2.3 g/dL (3.5-5.0); CALCIUM 7.6 mg/dL (8.8-10.2); CREATININE 4.3 mg/dL (0.7-1.2); POTASSIUM 4.3 mmol/L (3.5-5.1)
[2019-06-01] MEDS: TRANDATE PO SCH ×2 (08:42→21:23)
[2019-06-01] MEDS: PROTONIX IV SCH (08:42)
[2019-06-01] MEDS: FOLIC ACID PO SCH (08:42)
[2019-06-01] MEDS: FERROUS SULFATE PO SCH (08:42)
[2019-06-01] MEDS: NORVASC PO SCH (08:42)
[2019-06-01] MEDS: VITAMIN B-12 PO SCH (08:42)
[2019-06-01] MEDS: HEPARIN SUBQ SCH ×2 (08:47→21:23)
--- NOTE | 2019-06-01 09:41 | NEPHROLOGY PROGRESS NOTE ---
DATE: 06/01/2019 TIME SEEN: 0625. SUBJECTIVE: Mr. Hunter states that he is getting upset with people coming into his room, giving him bad news. He feels like we are bringing him down. He is unsure that he is as sick as the information that we have been giving him. At this time, he is unsure if he wants any further labs drawn after today's labs because he feels no different now than from the time he came. LABORATORY DATA: Sodium 138, potassium 4.3, chloride 109, CO2 of 21, BUN 36, creatinine 4.3, glucose is 97, his anion gap is 8, his calcium is 7.6, phosphorus is 4, albumin is 2.3. White count 8.13, hemoglobin 8.3, hematocrit 26.4, platelet count 268,000. OBJECTIVE: Most Recent Vital Signs: Temperature 98.3 degrees, blood pressure 117/56, heart rate 79, respirations 12. He is on room air. Last recorded saturation is 97%. He has had 240 in. He has voided 200, though he has urine that is currently in the toilet and in the hat on his commode at this time. General: This is a 58-year-old, white male. He is currently resting in bed. He is not wanting to assist with his physical exam today, states that I can listen to him while he is lying on his side. He is refusing to roll over for a thorough exam. What I can assess is his skin is warm and dry. HEENT: Normocephalic, atraumatic. Conjunctiva is pale pink. He has ALFREDO. Mucous membranes are dry. Neck: Supple. Trachea midline. No evidence of JVD in the side-lying position, flat. Cardiovascular: He is regular rate and rhythm. Appears sinus rhythm on the monitor. Lungs: Clear to auscultation anteriorly equal. Excursion on room air. Abdomen: Soft, nontender. Genitourinary: Not inspected. Extremities: Continues with 1+ to 2+ lower extremity edema up into above the knee. Continues with TEDs in place. Neurological: He is awake and alert to person and to place and recent events. ASSESSMENT AND PLAN: 1. Renal failure, which is unclear of either acute on chronic or acute. The patient's creatinine clearance was low. BUN and creatinine remain stable during his hospitalization. His creatinine is 4.3 with a BUN of 36 today. We have requested that he assist us in keeping a strict intake and output. He was to undergo a renal biopsy yesterday, got downstairs to CT, and then refused. 2. Electrolytes, acid-base balance, and anemia. These are all acceptable. 3. Altered mental status. The patient is alert to recent events. At this time, we have been rounding on the patient, and at this point, is unsure if he wants to continue our care. We have requested that he continue to get labs. We will remain available, and return to the patient care when needed. I would like to thank you for allowing us to follow with this patient. Dictated by ABA Perdomo for Hunter Ramirez MD cc: ABA Perdomo MD [facility]
--- NOTE | 2019-06-01 19:52 | PROGRESS NOTE ---
DATE: 06/01/2019 INTERVAL HISTORY: No acute events overnight. SUBJECTIVE: Mr. Hunter is feeling fine. I had a discussion with him about the sigmoid colon mass and I discussed with him that I was awaiting surgical team's recommendation regarding surgery. However, patient states that he would not undergo surgery if the mass was not confirmed to be cancer, and I told him that he would need further discussion with the surgical team regarding this. VITALS: Temperature 98.3 degrees, pulse 75, respiratory rate 20, blood pressure 112/67 he is saturating 99% room air. PHYSICAL EXAMINATION: Not in acute distress.HEENT: Oral cavity is moist. Respiratory: Air entry bilaterally equal. No wheezing, rhonchi or crackles. heart: S1, S2 normal, no gallop or murmurs. Abdomen: Soft nontender. Extremities: No lower extremity edema. He has mild edema which is improved since presentation. Neurological: He is alert and oriented x3. LABS: Suggestive of normocytic anemia with hemoglobin of 8.5, platelet 268,000. He has kidney dysfunction with BUN of 36, creatinine 4.3. His urine output has not been charted appropriately. IMAGING: No new imaging. ASSESSMENT AND PLAN: 1. Sigmoid mass with pulmonary nodules. Biopsy suggests tubulovillous adenoma. However, the fungating ulcerative mass is concerning for cancer. Appreciate general surgery's recommendation. However, patient is a little hesitant about undergoing surgery. 2. Kidney dysfunction, acute versus chronic. The patient refused renal biopsy. We will continue to monitor his kidney function and he would need outpatient Nephrology followup. 3. Iron deficiency, vitamin B12 deficiency, folate acid deficiency as well as acute blood loss anemia on chronic blood loss anemia likely because of bleeding sigmoid colon mass. Continue iron, folate, vitamin B12 supplementation. The endoscopy on May 25 did not have any significant bleeding diathesis, so I will stop his anti acid medications. 4. Essential hypertension. Currently his blood pressure is in excellent control. I will continue to watch it. 5. Urinary tract infection due to methicillin-sensitive Staphylococcus aureus status post antibiotics; continue heparin subcutaneous for deep venous thrombosis prophylaxis. DISPOSITION: I am awaiting general surgical team's recommendation regarding surgery. Based on that, I am anticipating discharge in next 24 to 48 hours. Plan of care discussed with the patient. He is in agreement. All of his questions have been answered. cc: Skyler Hartley MD
[2019-06-01] MEDS: LIPITOR PO SCH (21:23)
[2019-06-02 07:30] LABS: BASO# 0.06 X1000 (0.0-0.2); BASO% 0.8 % (0.0-0.8); EOS# 0.52 X1000 (0.0-0.7); EOS% 7.2 % (0.0-10.0); HEMATOCRIT 25.6 % (42.0-52.0); HEMOGLOBIN 8.1 g/dL (14.0-18.0); IMM GRAN# 0.04 X1000 (0.0-0.04); IMM GRAN% 0.6 % (0.0-0.5); LYMPH# 1.94 X1000 (1.2-3.4); LYMPH% 26.8 % (20.5-51.1); MCH 26.3 PG (27-31); MCHC 31.6 g/dL (33-37); MCV 83.1 FL (81-99); MONO# 0.51 X1000 (0.11-0.59); MPV 11.1 FL (7.4-10.4); NEUT# 4.17 X1000 (1.4-6.5); NEUT% 57.6 % (42.2-75.2); PLT 230 X1000 (130-400); RBC 3.08 XMIL (4.7-6.1); RDW 14.7 % (11.5-14.5); WBC 7.24 X1000 (4.8-10.8)
[2019-06-02 07:55] LABS: ALBUMIN 2.3 g/dL (3.5-5.0); CALCIUM 7.4 mg/dL (8.8-10.2); CREATININE 4.4 mg/dL (0.7-1.2); PHOSPHORUS 4.1 mg/dL (2.7-4.5); POTASSIUM 4.3 mmol/L (3.5-5.1)
[2019-06-02] MEDS: VITAMIN B-12 PO SCH (08:48)
[2019-06-02] MEDS: NORVASC PO SCH (08:48)
[2019-06-02] MEDS: TRANDATE PO SCH ×2 (08:48→20:55)
[2019-06-02] MEDS: FOLIC ACID PO SCH (08:48)
[2019-06-02] MEDS: FERROUS SULFATE PO SCH (08:48)
[2019-06-02] MEDS: HEPARIN SUBQ SCH ×4 (08:49→20:56)
[2019-06-02] MEDS: ZOFRAN IV PRN (08:57)
[2019-06-02] MEDS ORDERED: LR 500 ML IV SCH (17:30)
--- NOTE | 2019-06-02 18:03 | PROGRESS NOTE ---
DATE: 06/02/2019 INTERVAL HISTORY: No acute events overnight. SUBJECTIVE: Mr. Hunter is feeling fine. He denies any chest pain or shortness of breath. He denies any cough. He denies any nausea, vomiting, except occasional nausea. He did have a bowel movement. He states he is ready to go home. PHYSICAL EXAMINATION: Vital Signs: Labs currently temperature of 98.2 degrees, pulse 76, respiratory 18, blood pressure 146/69 and saturating 100% on room air. General: Not in acute distress. HEENT: Oral cavity is moist. Lungs: Air entry bilaterally equal. No wheeze, rhonchi, or crackles. S1 normal. Heart: No murmur or gallop. Abdomen: Soft and nontender. Extremities: No lower extremity edema. Neurologic: He is alert and oriented x3. He denies any suicidal or homicidal ideation. LABORATORY: Labs suggestive of hemoglobin 8.1, and platelets of 230,000. He does have elevation in BUN to 38 and creatinine of 4.4, which is elevated since presentation. MICROBIOLOGY: Blood culture has not shown any growth. No new imaging. ASSESSMENT AND PLAN: 1. Sigmoid mass suspicious for cancer based on fungating ulcerative appearance with suspicious pulmonary nodules. 2. Kidney dysfunction with unknown chronicity. 3. Iron deficiency vitamin B12 deficiency. Folic acid deficiency anemia. 4. Chronic lower GI blood loss. 5. Essential hypertension. 6. Urinary tract infection with MSSA. 7. At this point, the patient's kidney function continues to worsen so I will give him in gentle hydration for tonight and follow up with kidney function tomorrow. He is status post antibiotic treatment for urine infection. I will continue to replete his folic acid, ferrous sulfate and vitamin B12. I will keep him on amlodipine and atorvastatin as well as labetalol for essential hypertension. 8. I had a detailed discussion about his medical condition with multiple providers including gastroenterology team, nephrology team, and oncology team. Accordingly, though his sigmoid colon mass biopsy suggests tubulovillous adenoma, gross appearance during colonoscopy was suspicious for cancer. He would benefit from undergoing resection of the mass. However, considering his poor kidney function, he is at risk of ending up on dialysis after surgery. Oncology team currently is not recommending chemotherapy considering multiple other comorbidities, and thinks that he may benefit from surgical intervention. 9. I informed patient about this possibility. I informed him that considering the appearance of the mass it is worrisome for cancer, and he may have to undergo surgery. However, considering worsening kidney function, he may end up on dialysis. He previously had refused a kidney biopsy to get a better understanding of his kidney disease. I explained to him these possibilities. However, Mr. Hunter did not accept any of the information. He states that he did not have any kidney disease and he did not have any colon cancer. I asked the reason behind it, and he states that because he was not feeling any symptoms. I explained to him about the initial asymptomatic nature of lot of medical conditions. I explained to him about the lab abnormalities. However, he was not willing to understand. I asked him if he knew what could happen if his cancer was untreated, and he told me that he knew one could of cancer since one of his family or friends had of cancer. He still believes that he does not have any cancer. I offered him to call his son and keep him in the loop. However, he did not want me to call him. I will give him gentle intravenous fluid resuscitation. Follow up with kidney function, and consider discharging him in the next 24 hours. I also offered him possibly palliative and hospice care through, but he thinks that he was feeling healthy, and he does not need it. cc: MD ELIE Stewart
--- NOTE | 2019-06-02 20:15 | GENERAL SURGERY PROGRESS NOTE ---
DATE: 06/02/2019 SUBJECTIVE: He seems more alert and energetic today. He is quite disgruntled. OBJECTIVE: No fevers or tachycardia documented. Blood pressure 146/69. General: He is alert. Cardiovascular: Normal rate. Pulmonary: No increased work of breathing. His abdomen is soft, nontender. LABORATORY DATA: White count is 7, hematocrit is stable at 25. Creatinine is 4.4. This has overall been stable. Albumin is low at 2.3. ASSESSMENT AND PLAN: This is 58-year-old gentleman with colon cancer. Although the pathology showed tubulovillous adenoma, I do worry about invasive carcinoma. He has acute on likely chronic renal insufficiency. I do think he warrants resection, given his anemia and associated issues, although he has some pulmonary nodules that would suggest possible metastatic disease. I have discussed all these findings with the patient. We will plan for resection with improvement of his renal function; however, at this point, he stated he is going to refuse resection, he would just as soon , although I discussed that from advanced colon cancer and an obstruction is not a pleasant way to pass. He says anything would beat his current situation. I attempted to encourage him. I have talked to his nurse about further assessment for suicidal ideations, and they are going to contact his family and take the necessary routes. Otherwise we will follow along. cc: Milagro Mitchell MD
[2019-06-02] MEDS: LIPITOR PO SCH (20:55)
[2019-06-03 07:40] LABS: ALBUMIN 2.2 g/dL (3.5-5.0); CALCIUM 7.7 mg/dL (8.8-10.2); CREATININE 4.2 mg/dL (0.7-1.2); PHOSPHORUS 3.8 mg/dL (2.7-4.5); POTASSIUM 4.7 mmol/L (3.5-5.1)
[2019-06-03] MEDS: FERROUS SULFATE PO SCH (09:51)
[2019-06-03] MEDS: ZOFRAN IV PRN (09:58)
[2019-06-03] MEDS: FOLIC ACID PO SCH (09:59)
[2019-06-03] MEDS: NORVASC PO SCH (10:00)
[2019-06-03] MEDS: VITAMIN B-12 PO SCH (10:00)
[2019-06-03] MEDS: TRANDATE PO SCH ×2 (10:00→21:18)
[2019-06-03] MEDS: HEPARIN SUBQ SCH ×2 (10:00→21:18)
[2019-06-03 18:25] VITALS: BP 169/84
--- NOTE | 2019-06-03 20:50 | DISCHARGE SUMMARY ---
ADMISSION DATE: 05/22/2019 DISCHARGE DATE: 06/03/2019 DISCHARGE DISPOSITION: Home. DISCHARGE CONDITION: Hemodynamically stable. Mr. Hunter denies any chest pain, shortness of breath, nausea, vomiting, abdominal pain. He denies noticing any blood in the stool. He was advised to remain in the hospital for a sigmoid resection. However, he refused to undergo any treatment, saying that he does not think anything was wrong with him. I had provided him detailed discharge instructions including following with general surgeon as outpatient. I answered all of his questions. DISCHARGE DIAGNOSES: 1. Sigmoid mass, most likely cancer though the biopsy just suggested tubulovillous adenoma. Based on gross appearance, it is most likely cancer. 2. Kidney dysfunction with known chronicity. 3. Iron deficiency, vitamin B12 deficiency, and folic acid deficiency anemia. 4. Chronic lower GI bleeding leading to anemia. 5. Essential hypertension. 6. Acute Urinary tract infection with MSSA. 7. Fall with transient amnesia due to postconcussion syndrome. 8. Metabolic encephalopathy. 9. Pulmonary nodules. DISCHARGE MEDICATIONS: Atorvastatin 40 mg at nighttime, ferrous sulfate 325 mg daily, folic acid 1 mg daily, amlodipine 10 mg daily, vitamin B12 500 mcg daily. VITALS: At time of discharge temperature 97.9 degrees, pulse 80, respiratory rate 14, blood pressure 142/64 saturating 100% room air. PHYSICAL EXAMINATION: Not in acute distress. Oral cavity is moist. Air entry bilaterally equal. No wheeze or crackles. S1 normal. No murmur, rub, or gallop. Abdomen: Soft, nontender. No lower extremity edema. Mr. Hunter is alert and oriented x3. SIGNIFICANT LABS: At the time of discharge WBC 7.2, hemoglobin 8.1, platelet 230,000. Sodium 136, potassium 4.7, BUN 36, creatinine 4.2, blood glucose of 94. Significant Micro During Hospital Admission: Blood culture did not have any growth. Urine culture was growing Staphylococcus aureus which was sensitive to methicillin. Fecal occult blood test was positive. SIGNIFICANT IMAGIN. Chest x-ray on presentation had COPD. Head CT on presentation had chronic microvascular white matter changes. No evidence of acute disease. Carotid Doppler ultrasound did not have any hemodynamically significant flow-limiting stenosis. Both vertebral arteries had antegrade flow. The calculated stenosis was likely 0 to 39% bilaterally. 2. Renal ultrasound on May 22 had left nephrolithiasis, which was stable since 2010. 3. Echocardiogram had ejection fraction of 55% without any regional wall motion abnormality. Pulmonary pressure appeared to be grossly normal. 4. Brain MRI on May 24 had few chronic periventricular lacunar infarcts and minimal cortical encephalomalacia involving the right occipital lobe and moderate white matter microangiopathy. No evidence of acute intracranial pathology. 5. Chest CT on May 26 had pulmonary nodules in the right lower lobe. The possibility of metastatic disease could not be excluded. Abdomen ultrasound had cholelithiasis without any hepatic mass. Abdomen x-ray had left renal stone. Small bowel biopsy had reactive small bowel mucosa with no significant histopathologic changes. 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 Electrocardiogram on presentation had sinus rhythm with short CT, left axis deviation, ST-T abnormality, consider anterior ischemia. PROCEDURES DURING HOSPITAL ADMISSION: 1. On 05/25/2019, patient underwent upper endoscopy. It was entirely normal. Biopsies were taken from small intestine to rule out celiac disease. 2. On May 26, patient underwent colonoscopy which had detected near circumferential mass about 20 cm from the point of entry in the sigmoid colon. Multiple biopsies were performed. There were a few subcentimeter polyps. However, it was poor preparation. HOSPITAL COURSE SUMMARY: Mr. Hunter is a 58-year-old man who did not have any medical follow-up as an outpatient, came in on 05/22/2019 with chief complaint of being found unconscious and memory loss. Apparently, the patient's son got a phone call from his roommate around 10 p.m. and it was reported the patient fell, possibly passed out and so he was brought into the hospital by EMS. In the hospital, he was disoriented, confused. He could not remember the course of events. Workup in the emergency room revealed his temperature was 97.8 degrees, pulse was 75, respiratory rate of 14, blood pressure of 170/80. His initial labs had microcytic anemia with hemoglobin of 7.5, kidney dysfunction with creatinine of 3, flat trend of troponin of 108, 111, and 104. Hypoalbuminemia with protein of 2.6. His urinalysis has pyuria. Urine toxicology was negative, so he was admitted for further management. His CT scan of the head did not have an any acute pathology. A chest x-ray was unremarkable. He was started with intravenous fluid resuscitation. Nephrology team was consulted. The initial workup for kidney disease including renal ultrasound were unremarkable except old nephrolithiasis and during this hospital admission, he was scheduled to receive renal biopsy. However, right on the day of biopsy, patient refused to undergo renal biopsy and he did not want any more investigations done. At the time of discharge, his creatinine has been slightly higher than admission, but stable at around 4. He was advised to have follow up with kidney doctor. Workup for microcytic anemia revealed he had positive fecal occult blood test and he underwent upper endoscopy which was unremarkable and lower endoscopy had detected near circumferential sigmoid colon mass. General surgical team was involved. CT scan of the chest had detected pulmonary nodules on the right lung which were sub-centimeter, small, however suspicious for malignancy. Oncology team was also involved. The initial plan was for patient to undergo resection of the colon mass though the biopsy performed during colonoscopy just had tubulovillous adenoma, its appearance and presentation looked concerning and most likely suggestive of cancer. However, patient refused to undergo surgery saying that he did not have any symptom of the cancer and he did not believe he had cancer. He was explained to about the colonoscopy findings and need for surgery. He understood the risk associated with not getting treatment including spread of the cancer and possible . Despite that, he did not want to proceed with surgery. He was advised to have outpatient surgical follow-up. Within the first 2 or 3 days, patient's mental status had already improved and he was alert and oriented. MRI of the brain had suggested some chronic lacunar infarct and it was thought he could have some cognitive dysfunction. However, at the time of discharge he was alert and oriented. He understood his medical conditions and consequences and was able to make a decision. He did not want us to contact his family members at the time of discharge, so he was provided detailed written discharge instructions. More than 30 minutes of time was spent discharging this patient. cc: MD ELIE Stewart
[2019-06-03] MEDS: LIPITOR PO SCH (21:18)
== END 2019-06-03 23:42 | disposition home or self-care (01) | DRG 393 ==
LOC: ED 22:59 → SUATTDRO 05-22 03:35 → 2N 05-22 03:35 → 4N 05-24 21:05
PROVIDERS: ATTEND Internal Medicine

== ENCOUNTER 2019-07-09 10:28 | Inpatient (IN) ==
[2019-07-09] MEDS ORDERED: NS 1,000 ML IV ONE (11:18)
--- NOTE | 2019-07-09 11:18 | PROVIDER DOCUMENTATION ---
HPI-General Adult - General Chief Complaint: Flank Pain Stated Complaint: DR BANKS REFERRED Time Seen by Provider: 07/09/19 10:37 Source: patient Allergies/Adverse Reactions: Patient Allergies Allergy/AdvReac Type Severity Reaction Status Date / Time No Known Allergies Allergy Verified 02/05/14 09:08 Home Medications: Home Medication List Medication Instructions Recorded Confirmed Last Taken Type ATORVAstatin [Lipitor] 40 mg PO QHS #30 tab 06/03/19 Unknown Rx Amlodipine [Norvasc] 10 mg PO DAILY #30 tab 06/03/19 Unknown Rx Cyanocobalamin [Vitamin B-12] 500 microgm PO DAILY #30 tab 06/03/19 Unknown Rx Ferrous Sulfate 325 mg PO DAILY #30 tab 06/03/19 Unknown Rx Folic Acid 1 mg PO DAILY #30 tab 06/03/19 Unknown Rx - History of Present Illness -Gen Adult Nature of Presenting Problems: Patient is a 58 yom who presents stating that Dr. Hurt sent him here for admission. Hx of colon tumor. States he has a kidney stone that is causing decline in renal function and in order for Dr. Hurt to remove his colon tumor, the kidney stone must be taken care of first. Was recently admitted here, and the colon tumor was found during his admission. Reports occasional vomiting but denies any other complaints currently. Pt non-toxic in appearance. Review of Systems - Adult - REVIEW OF SYSTEMS - ADULT Constitutional: reports: no symptoms reported. denies: chills, fever Eyes: reports: no symptoms reported Ears, Nose, Mouth & Throat: reports: no symptoms reported Cardiovascular: reports: no symptoms reported Respiratory: reports: no symptoms reported Gastrointestinal: reports: see HPI Genitourinary: reports: see HPI Musculoskeletal: reports: no symptoms reported Integumentary: reports: no symptoms reported Neurological: reports: no symptoms reported Psychiatric: reports: no symptoms reported Endocrine: reports: no symptoms reported Hematologic/Lymphatic: reports: no symptoms reported Allergic/Immunologic: reports: no symptoms reported All Other Systems: Reviewed and Negative Past History - Adult - PAST MEDICAL HISTORY-ADULT Review of Records: reports: Old Records Reviewed, Nursing Assessment Review, Medications Reviewed, Social history reviewed & non-contributory. Major Childhood Illnesses: reports: denies history Cardiovascular: reports: denies history Respiratory: reports: denies history Gastrointestinal: reports: cancer Genitourinary: reports: kidney stones Musculoskeletal: reports: denies history Neurological: reports: denies history Endocrine/Immune: reports: Diabetes Other Conditions: reports: MRSA (back of head) - PRIOR SURGERIES/PROCEDURES Surgical/Procedure History: reports: none - IMMUNIZATION STATUS Childhood Immunizations: See Nurse Assessment Flu Vaccine: See Nurse Assessment - FAMILY HISTORY Family History: reviewed, not pertinent - SOCIAL HISTORY Smoking: non-smoker Physical Exam-General - PHYSICAL EXAM-ADULT Initial Vital Signs Reviewed: Yes - CONSTITUTIONAL General Appearance: alert, no apparent distress. negative: lethargic, slow to respond - EYES Eyes: PERRL/EOMI, pink conjunctivae - HEAD, EARS, NOSE, MOUTH & THROAT HENMT: normocephalic/atraumatic, moist mucous membranes - NECK Neck: full range of motion, supple, normal inspection - RESPIRATORY Respiratory: chest non-tender, lungs clear, normal breath sounds, no pleuratic chest pain, no respiratory distress, no accessory muscle use - CARDIOVASCULAR Cardiovascular: regular rate, rhythm, no gallop, no murmur - GASTROINTESTINAL (ABDOMEN) Abdominal Exam: normal bowel sounds, non tender, soft - MUSCULOSKELETAL Back Exam: normal inspection Extremity: normal range of motion, non-tender, normal gait, normal inspection - SKIN Integumentary: normal color, warm/dry. negative: cyanosis, diaphoresis, jaundice, mottled, pallor - NEUROLOGIC Neurologic: grossly normal, no motor/sensory deficits - PSYCHIATRIC Psych/Mental Status: normal mood/affect, normal thought content, normal thought process, oriented x 3 Progress - PLAN OF CARE/RESULTS Progress/Plan/Lab Results: Vital Signs - 8 hr 07/09/19 10:31 Temperature 97.9 F Pulse Rate 96 H Respiratory Rate 16 Blood Pressure 197/102 O2 Sat by Pulse Oximetry 99 Orders Category Date Time Status Saline Loc NOW Care 07/09/19 11:01 Active CBC WITH DIFF [HEME] Stat Lab 07/09/19 11:01 Ordered COMPREHENSIVE METABOLIC PANEL [CHEM] Stat Lab 07/09/19 11:01 Uncollected UA NIMS W/REFLEX CULT [URINALYSIS] Stat Lab 07/09/19 11:01 Uncollected Result Diagrams: 07/09/19 12:32 07/09/19 12:32 - REASSESSMENT Reassessment #1 Time Reassessed: 13:40 Status: other (Urology on-call paged.) Reassessment #2 Time Reassessed: 15:02 Status: other (HUONG Eastman ROUTER MACHINE OPERATOR accepted admission. She will place orders.) - CT/MRI 1 CT Study: Renal Stone ([facility] - [address], [address], [place] [address] [facility] - [address] , [place] [address] Department of Imaging Patient: STEFFANIE PIERCE Date: 07/09/19#: [id number] : 9ADM Status: [facility]#: [id number] Age/Sex: 58/MRoom/Bed: Loc: ED Ordering Physician: Rosie Jj Family Physician: None,PCP Reason for Procedure: hx kidney stone, ISRRAEL Signed EXAM: CT RENAL STONE SEARCH 07/09/2019 HISTORY: hx kidney stone, ISRRAEL TECHNIQUE: This exam was performed using automated exposure control, adjustment of mA or kV according to patient size, and/or use of iterative reconstruction technique. COMMENT: The nodular opacity in the right lower lobe which was present on 05/24/2019 is not included on this study. There is a linear opacity in the right lower lobe which was present previously and is presumably due to fibrosis. Otherwise are has been no appreciable change in the included portion of the chest. There are stones in the gallbladder. The gallbladder is not distended. There is marked hydronephrosis on the left with a large stone in the renal pelvis which measures 2.6 cm in diameter. This was also present at the time the previous study. The urinary bladder is not distended but is somewhat thickened in appearance. The left ureter is distended but there is no evidence of distal ureterolithiasis. The seminal vesicles remain enlarged. There is no evidence of bowel obstruction. The appendix is not distended. There is a 10 mm left external iliac node. There is stranding around the left ureter. There are postsurgical changes in the lower thoracic spine. There is no evidence of acute bony abnormality. There is ankylosis of the sacroiliac joints. IMPRESSION: Left nephrolithiasis hydronephrosis and hydroureter. The possibility of cystitis cannot be excluded. Essentially stable since 05/24/2019. Electronically signed by Shahid Hebert 07/09/2019 12:31 PM 07/09/19 1231 Interpreting Physician: Shahid Hebert MD Dictated Date/Time: 07/09/19 1226 cc: Rosie Jj; None,PCP) - CONSULTS/PCP/HOSPITALIST Notification #1 *Consult/PCP/Hospitalist*: Dr. Hurt Time Discussed: 11:18 Reason/Comments: pt known to him Consult Disposition: other ( states pt is in renal failure and he is unable to operate on his colon tumor due to this. Md wishes for pt to be admitted for acute renal failure.) #2 Consult: Dr. Shirley Time Discussed: 13:58 Reason/Comments: hydronephrosis, UTI, renal insufficiency Consult Disposition: other (Dr. Franco saw pt during recent hospital admission, states pt was supposed to f/u in his office and failed to do so. has no recommendations at this time.) #3 Consult: HUONG Gusman NP Time Discussed: 14:47 Reason/Comments: admission per request of Dr. Hurt, renal insufficiency Consult Disposition: other (Uzma wishes to speak with supervising [facility] physician prior to accepting admit.) Departure - Departure Date of Disposition Decision: 07/09/19 Time of Disposition Decision: 15:03 DIAGNOSIS: Kidney stone on left side, Opacity noted on imaging study, Elevated blood pressure reading Gallstone Qualifiers: Cholecystitis presence: without cholecystitis Biliary obstruction: without biliary obstruction Qualified Code(s): K80.20 - Calculus of gallbladder without cholecystitis without obstruction UTI (urinary tract infection) Qualifiers: Urinary tract infection type: site unspecified Hematuria presence: with hematuria Qualified Code(s): N39.0 - Urinary tract infection, site not specified Disposition: ADMITTED INPATIENT 09 Certified Medical Emergency: Emergent Condition: Stable Referrals and Follow-Ups: None,PCP [Primary Care Provider] - - Critical Care Note This patient required my direct & personal management of CC.: No Attestation - Physician/ SENIA Attestation Patient care was provided by Advanced Practice Provider:: Yes Advanced Practice Provider:: Rosie Jj Advanced Practice Provider documentation review:: The Mid-level provider documentation, treatment plan and medical decision making was reviewed by the physician who agrees with all treatment and medical decision making by the MLP. The physician spent face to face time with patient:: No Advanced Practice Provider documentation review:: Supervising physician onsite and consulted in the evaluation and care of this patient. The physician did not have a face to face encounter with the patient.
--- NOTE | 2019-07-09 12:34 | Diag Imaging Result Doc PS360 ---
EXAM: CT RENAL STONE SEARCH 07/09/2019 HISTORY: hx kidney stone, ISRRAEL TECHNIQUE: This exam was performed using automated exposure control, adjustment of mA or kV according to patient size, and/or use of iterative reconstruction technique. COMMENT: The nodular opacity in the right lower lobe which was present on 05/24/2019 is not included on this study. There is a linear opacity in the right lower lobe which was present previously and is presumably due to fibrosis. Otherwise are has been no appreciable change in the included portion of the chest. There are stones in the gallbladder. The gallbladder is not distended. There is marked hydronephrosis on the left with a large stone in the renal pelvis which measures 2.6 cm in diameter. This was also present at the time the previous study. The urinary bladder is not distended but is somewhat thickened in appearance. The left ureter is distended but there is no evidence of distal ureterolithiasis. The seminal vesicles remain enlarged. There is no evidence of bowel obstruction. The appendix is not distended. There is a 10 mm left external iliac node. There is stranding around the left ureter. There are postsurgical changes in the lower thoracic spine. There is no evidence of acute bony abnormality. There is ankylosis of the sacroiliac joints. IMPRESSION: Left nephrolithiasis hydronephrosis and hydroureter. The possibility of cystitis cannot be excluded. Essentially stable since 05/24/2019. Electronically signed by Shahid Hebert 07/09/2019 12:31 PM
[2019-07-09 12:52] LABS: URINE SOURCE CLEAN CATCH
[2019-07-09 13:05] LABS: BASO# 0.03 X1000 (0.0-0.2); BASO% 0.3 % (0.0-0.8); EOS# 0.39 X1000 (0.0-0.7); EOS% 3.9 % (0.0-10.0); HEMATOCRIT 29.2 % (42.0-52.0); HEMOGLOBIN 9.5 g/dL (14.0-18.0); IMM GRAN# 0.02 X1000 (0.0-0.04); IMM GRAN% 0.2 % (0.0-0.5); LYMPH# 1.53 X1000 (1.2-3.4); LYMPH% 15.3 % (20.5-51.1); MCH 26.5 PG (27-31); MCHC 32.5 g/dL (33-37); MCV 81.3 FL (81-99); MONO# 0.44 X1000 (0.11-0.59); MONO% 4.4 % (1.7-9.3); MPV 9.7 FL (7.4-10.4); NEUT# 7.58 X1000 (1.4-6.5); NEUT% 75.9 % (42.2-75.2); PLT 311 X1000 (130-400); RBC 3.59 XMIL (4.7-6.1); WBC 9.99 X1000 (4.8-10.8)
[2019-07-09 13:06] LABS: BILIRUBIN URINE NEGATIVE (NEGATIVE); BLOOD URINE MODERATE (NEGATIVE); COLOR YELLOW; GLUCOSE URINE 150 mg/dL (NEGATIVE); KETONE URINE NEGATIVE (NEGATIVE); LEUKOCYTES URINE LARGE (NEGATIVE); NITRITE URINE NEGATIVE (NEGATIVE); PROTEIN URINE 300 mg/dL (NEGATIVE); SP GRAVITY URINE 1.012; TURBIDITY URINE TURBID (CLEAR); UROBILINOGEN URINE NORMAL (NORMAL)
[2019-07-09] MEDS ORDERED: ROCEPHIN 1 GM in NS 50 ML IV ONE (13:10)
[2019-07-09 13:16] LABS: UR EPITHELIAL CELLS <10 /HPF (<10); URINE BACTERIA NEGATIVE /HPF; URINE WBC TNTC /HPF (<10)
[2019-07-09 13:29] LABS: ALB/GLOB RATIO 0.7; ALBUMIN 2.8 g/dL (3.5-5.0); CALCIUM 8.3 mg/dL (8.8-10.2); CREATININE 4.9 mg/dL (0.7-1.2); POTASSIUM 4.6 mmol/L (3.5-5.1); TOTAL BILIRUBIN 0.24 mg/dL (0.20-1.00); TOTAL PROTEIN 6.7 g/dL (6.3-8.3)
[2019-07-09 13:35] LABS: URINE CASTS NONE SEEN; URINE CRYSTALS NONE SEEN; URINE SMALL ROUND CELLS NONE SEEN
[2019-07-09] MEDS ORDERED: LABETALOL IV ONE ×2 (15:02→16:19)
[2019-07-09] MEDS ORDERED: APRESOLINE IV PRN (16:49)
[2019-07-09] MEDS ORDERED: NS 1,000 ML IV SCH (16:49)
[2019-07-09] MEDS ORDERED: MORPHINE IV PRN (16:49)
[2019-07-09] MEDS ORDERED: TYLENOL PO PRN (16:49)
[2019-07-09] MEDS: NS 1,000 ML IV SCH (18:12)
--- NOTE | 2019-07-09 19:45 | HISTORY AND PHYSICAL ---
PRIMARY CARE PROVIDER: Dr. Sales CHIEF COMPLAINT: I was sent to have my kidney fixed. HPI: Mr. Hunter is a somewhat uncooperative 58-year-old male who carries a new diagnosis of a colon mass that is highly suspicious for colon cancer, iron deficiency anemia, diabetes, chronic kidney disease. Upon his last admission, it was a requested that he undergo a renal biopsy. However, the patient refused. He was also found to have a renal stone on his last admission, which he refused to let Dr. Shirley treat. He was also followed by General surgery who felt that he would need a resection. However, the patient also refused for resection. The patient's creatinine continues to climb. It is currently 4.9 today. He was very hypertensive, initially 190s over 100s. He is currently 220s over 120s. He is refusing any type of blood pressure medications, stating there is nothing wrong with his heart. He only wants his kidney stone to be addressed since that is the reason why he came to the hospital so he could get his colon surgery. I reported to him that we would need to monitor him on telemetry and treat his blood pressures prior to being able to undergo any type of surgery. He just wanted to forget the whole thing and leave against medical advice and go back home. I did try to educate him on the importance of keeping his blood pressure down as it would cause further damage to his kidneys. It could cause stroke. He was very disgruntled and did not know for sure at the time of my at the time that our admission process was ending i fhe would stay. He was going to think about it and let the nurses know if he would agree to stay and continue to receive treatment. He was really denying any symptoms. PAST MEDICAL HISTORY: MRSA in the back of the head, kidney stones, diabetes, colon cancer, acute renal failure and/or chronic kidney disease. PAST SURGICAL HISTORY: Positive for positive for back surgery. SOCIAL HISTORY: He dips 1 can per day, but denies any illicit drug use. He does live with a roommate. 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 FAMILY HISTORY: Positive for colon cancer in his mother, diabetes, heart disease. REVIEW OF SYSTEMS: Hard to obtain secondary to the patient being disgruntled and not really wanting. MEDICATIONS: Home medications are being compiled. ALLERGIES: No known drug allergies. PHYSICAL EXAMINATION: VITAL SIGNS: Temperature is 97.9 degrees, heart rate 96, respirations 16, blood pressure was 220s over 120s, O2 saturation 99% on room air. GENERAL: Mr. Hunter is a disgruntled, uncooperative 58-year-old male who is sitting up in the stretcher and in no acute distress, refusing blood pressure treatment. HEENT: Atraumatic, normocephalic. PERRL. Poor dentition. NECK: Supple trachea midline. CV: Tachycardic rhythm, could not appreciate any murmurs, gallops, or rubs. RESPIRATORY: Lung sounds clear bilaterally. GI: Was nontender, nondistended. Positive bowel sounds 4 quads. EXTREMITIES: Lower extremities with 2 to 3+ pitting edema. The patient still had his shoes laced up. Could not assess pedal pulses. NEUROLOGIC: Again, he is disgruntled, not wanting to cooperate with treatment or treatment plan, wanting to leave AMA. DIAGNOSTIC DATA: Renal CT: Left nephrolithiasis, hydronephrosis with hydroureter. Possibility of cystitis could not be excluded. It is stable since 05/24/2019. LABORATORY DATA: White count 9, hemoglobin and hematocrit 9 and 29, platelet count is 311,000. Chemistry: Sodium 138, potassium 4.6, BUN 36, creatinine 4.9, GFR is 12, blood glucose is 108, albumin 2.8. Urinalysis too numerous to count wbc's, large leukocytes, 10 to 20 RBCs, moderate blood, negative for nitrates, negative for bacteria, 300 protein. ASSESSMENT AND PLAN: 1. Left nephrolithiasis with hydronephrosis and hydroureter. He has been initiated on IV antibiotics. We will aggressively hydrate him. We will consult Dr. Shirley of he does have a large stone in the renal pelvis that measures 2.6 cm in diameter. Again, imaging is stable from 05/24/2019. Acute renal failure versus acute kidney injury versus chronic kidney disease. Patient refused any type of workup on his last admission. We will continue with aggressive IV hydration. The patient does have 2 to 3+ pitting lower edema. 2. Bilateral lower extremity pitting edema. He denies any heart failure or heart issues because "his heart is beating fine." 3. Accelerated hypertension. Patient is currently refusing any type of blood pressure medications whether be IV or p.o. He was going to use the restroom and think about if he wanted to receive any blood pressure medications and if he was going to sign out AMA. 4. Iron deficiency, B12 deficiency and folic acid deficiency anemia. 5. Chronic lower gastrointestinal bleed secondary to a sigmoid mass. 6. Sigmoid mass suggestive of tubulovillous adenoma. 7. Pulmonary nodules. Aware. Patient is waiting to undergo a PET scan. 8. Probable chronic obstructive pulmonary disease evident on chest x-ray. 9. Medical noncompliance, refusal of recommended treatments and somewhat in denial that he could have so many issues going on at once, will need further education. 10. Further recommendations to follow physician evaluation, laboratory and diagnostic data. Dictated by ABA Marroquin for Nena Gross MD cc: MD Tyler Brannon MD MTDD
[2019-07-09] MEDS: TRANDATE PO SCH (20:51)
[2019-07-09] MEDS: APRESOLINE PO SCH (20:51)
[2019-07-09] MEDS: NITROGLYCERIN TOP SCH (20:51)
[2019-07-09] MEDS: HEPARIN SUBQ SCH (20:52)
[2019-07-09] MEDS: ZOSYN 2.25 GM in NS 50 ML IV SCH (20:59)
[2019-07-09] MEDS ORDERED: TRANDATE PO SCH (21:00)
[2019-07-09 23:29] LABS: UR CREAT RANDOM 55.1 mg/dL (14-26); UR PROT RANDOM > 600.0 mg/dL; UR SODIUM 108 mmoll
[2019-07-10] MEDS: ZOSYN 2.25 GM in NS 50 ML IV SCH ×3 (05:19→21:22)
[2019-07-10] MEDS: NS 1,000 ML IV SCH (05:19)
[2019-07-10] MEDS: APRESOLINE PO SCH ×2 (05:20→12:33)
[2019-07-10] MEDS: ZOFRAN IV PRN ×4 (05:27→21:22)
[2019-07-10 06:04] LABS: HEMATOCRIT 22.7 % (42.0-52.0); HEMOGLOBIN 7.6 g/dL (14.0-18.0); MCH 27.8 PG (27-31); MCHC 33.5 g/dL (33-37); MCV 83.2 FL (81-99); MPV 9.8 FL (7.4-10.4); RBC 2.73 XMIL (4.7-6.1); RDW 15.1 % (11.5-14.5); WBC 9.13 X1000 (4.8-10.8)
[2019-07-10 06:16] LABS: ALBUMIN 2.4 g/dL (3.5-5.0); CALCIUM 7.5 mg/dL (8.8-10.2); PHOSPHORUS 6.4 mg/dL (2.7-4.5)
[2019-07-10 06:19] LABS: CREATININE 5.4 mg/dL (0.7-1.2)
[2019-07-10 07:18] LABS: IRON SATURATION 48 %; TIBC 217 ug/dL; TOTAL IRON 105 ug/dL (53-167); UNBOUND IRON 112 ug/dL (112-346)
[2019-07-10 07:58] LABS: FERRITIN 375 ng/mL (30-400)
[2019-07-10] MEDS: NITROGLYCERIN TOP SCH ×2 (11:19→21:22)
[2019-07-10] MEDS: HEPARIN SUBQ SCH ×2 (11:22→20:00)
[2019-07-10] MEDS: FOLIC ACID PO SCH (11:46)
[2019-07-10] MEDS: TRANDATE PO SCH (11:46)
[2019-07-10] MEDS: ZYVOX 600 MG/D5W 600 MG/300 ML IVPB IV SCH (14:13)
--- NOTE | 2019-07-10 14:59 | CONSULTATION ---
DATE OF CONSULTATION: 07/10/2019 CONSULTING PHYSICIAN: Dr. Gross with Hospitalist Service REASON FOR CONSULTATION: Stone management, acute kidney injury, hydronephrosis. HISTORY OF PRESENT ILLNESS: A 58-year-old male, who was seen by me on 05/25/2019 secondary to 2.6 cm left renal stone and mild renal pelvis dilation. At the time of that hospitalization, the patient had elevated creatinine up to 3.6 and during his hospitalization it slowly went up to 4.6. He has a documented record of noncompliance. At the time of me visiting him in the hospital on 05/25/2019, he directly stated to me that he was not in the hospital for kidney problem and did not need a urologist. Nevertheless, he was offered an appointment to discuss management of stone on outpatient basis. In the interim, he was called by our office and asked if he would like an appointment and declined to set one up. I was then contacted by Dr. Mitchell's office who was planning on performing a bowel surgery on him, and I discussed Mr. Hunter with Dr. Mitchell personally over the phone about his impaired kidney function and large kidney stone. At that time, I explained to Dr. Mitchell that his impaired renal function is very likely related to uncontrollable hypertension and his noncompliance and his social history. I have discussed with Dr. Mitchell that me taking care of 2.6 cm stone was unlikely to drastically improve his renal function. In the interim, patient states he saw Dr. Sales on 07/07/2019 and received an iron infusion. He states he was contacted by Dr. Sales's office on 07/09/2019 and was told that he needs to go to the emergency room and be admitted so that a urologist could see him and fix his "kidney stone problem." So the patient states he did as he was told. He had CT scan done on 07/09/2019 which revealed stable stone and hydroureteronephrosis which was not seen at the last CT scan down to the level of the bladder without any evidence of ureteral stones or significant mass affect. He does have gram-positive cocci, in his urine. The patient states he is asymptomatic. He again denies gross hematuria, flank pain, fevers, chills, nausea or vomiting. Upon admission, his creatinine was 4.9 and on 07/10/2019 is up to 5.4. He also had documented blood pressure of 224/136 and per records refused blood pressure medications at time of admission. Please see his past medical-surgical, social history from previous consultations with no significant change. The patient states he is hungry and upset and does not want to discuss his review of system. PHYSICAL EXAMINATION: Vital signs: T 98.6 degrees, pulse 86, BP 125/69. General: No acute distress. Abdomen: Nontender, nondistended. DIAGNOSTIC DATA: His BUN is 38 and creatinine is 5.4. His white cell count 9000. Pertinent images: His CT scan abdomen and pelvis, renal stone search on 07/09/2019 revealing findings per HPI, which were reviewed personally by me, and there is a hydroureteronephrosis to the level of the bladder. ASSESSMENT/PLAN: A 58-year-old male with acutely worsening kidney disease and chronic underlying kidney disease in the setting of uncontrolled hypertension who has a large stone, gram-positive cocci in his urine and left hydroureteronephrosis. I have discussed with the patient that he has both kidneys and has some function in his right renal moiety. Even if the stone was contributing partially to obstruction, that should not cause such an impairment of his renal function. It is likely from his blood pressure and/or other medical problems. I have discussed with the patient that given his history of noncompliance and unwillingness to see us in the office to discuss this case and his unprofessional attitude towards office staff and me, I do not feel comfortable placing ureteral stent, as I am simply concerned he will not follow up and the stent could potentially encrust and cause further damage to his kidney. I have discussed with him that if he was interested, we could ask the radiology colleagues to place nephrostomy tube in the left kidney, although I am fairly convinced they will not significantly improve his renal function. I have discussed with the patient again that he would benefit from left percutaneous nephrostolithotomy given the size of the stone which could be done and set up on an outpatient basis in elective fashion. The patient states he did not want a "tube in his kidney," he is not willing to consider dialysis and he was not even sure why he was here. I discussed the patient with Dr. Gross and explained his difficult situation. PLAN: 1. There is no emergent urologic intervention needed at this time for the patient. 2. If the hospitalist team discusses it further with the patient and he wants to get nephrostomy tube in his left kidney, we could certainly ask the radiology colleagues on 08/01/2019, to consider placing nephrostomy tube. 3. If he decides to have his stone treated on outpatient basis, again after discharge and him being stable, he is welcome to make an appointment with us, and I will be happy to discuss that further with him. 4. Please call if questions. cc: MD Tyler Dunham MD
--- NOTE | 2019-07-10 15:56 | PROGRESS NOTE ---
DATE: 07/10/2019 SUBJECTIVE: The patient states that he was nauseated last night with vomiting. This morning he does complain of some nausea, but he is hungry. OBJECTIVE: Vital Signs: Temperature 98 degrees, blood pressure 136/71, heart rate 79, respirations 20, O2 saturation is 100% on room air. Intake 2.6 L. General: This is a chronically ill-appearing male lying in bed in no acute distress. HEENT: Normocephalic, atraumatic. Poor dentition. Heart: S1, S2 normal. Regular rate and rhythm. Lungs: Clear to auscultation bilaterally. No wheezing. No rales. No rhonchi. Abdomen: Positive bowel sounds. Soft, nontender, nondistended. Extremities: 1+ edema bilaterally. Neurologic: The patient is alert and oriented x3. LABS: White blood cell count 9.1, hemoglobin 7.6, hematocrit 22, platelets 266,000. Sodium 139, potassium 4, chloride 109, CO2 18, BUN 38, creatinine 5.4, glucose 120, magnesium 1.7. ASSESSMENT AND PLAN: 1. Recurrent urinary tract infections. The patient's urine culture is growing gram-positive cocci. During the patient's prior admission, he grew out MSSA in the urine. The patient has a renal stone that may be contributing to his recurrent urinary tract infections. We will continue to treat with antibiotics. 2. Chronic kidney disease stage 5. The patient's renal function appears to have worsened since his last admission. He was treated with IV fluids overnight and his BUN and creatinine continue to rise. The patient refused a renal biopsy during his hospitalization in May. He reports that he has not followed up with any other physicians except for Dr. Sales. We will consult with the pin maker for further recommendations. 3. Left nephrolithiasis with hydroureter and hydronephrosis. Stable. The findings were discussed with Dr. Shirley. We will monitor the patient closely. 4. Sigmoid colon mass. The pathology from the colonoscopy revealed tubulovillous adenoma with high-grade dysplasia. The patient will likely need resection at some point. He is being followed by Dr. Sales as outpatient. He has not followed up with a general surgeon yet for definitive surgical intervention. 5. Severe protein calorie malnutrition. We will consult with the dietitian. 6. Hypertension. Improved. We will continue on the current antihypertensive regimen. 7. Deep vein thrombosis prophylaxis. Continue on heparin. cc: Nena Gross MD MTDD
--- NOTE | 2019-07-10 17:54 | NEPHROLOGY CONSULTATION ---
DATE: 07/10/2019 REASON FOR CONSULTATION: Chronic kidney disease. HISTORY OF PRESENT ILLNESS: Mr. Hunter is a 58-year-old white male with CKD stage 4-5. He was recently admitted to the hospital at which time he had creatinine around 3 and it geraldine progressively to 4.2 by the time he was discharged. We offered him kidney biopsy at the time which he declined. He also has a large stone in the left kidney with hydronephrosis. Urology does not feel they can intervene upon this stone. He states he came back to the hospital to address a tumor found in his colon during his last admission. No nausea or vomiting. PAST MEDICAL HISTORY: As above. Also history of diabetes, colon cancer. HOME MEDICATIONS: None. He has atorvastatin, iron sulfate, folate, amlodipine, cyanocobalamin listed. It is not clear at all he is taking these. ALLERGIES: None. SOCIAL HISTORY: Ongoing tobacco use. Prior alcohol use. FAMILY HISTORY AND REVIEW OF SYSTEMS: Otherwise not relevant. OBJECTIVE: Blood pressure 136/71, heart rate 79, respirations 20, afebrile.General: He is a frail middle-aged man, no acute distress. Skin is pale and dry. Conjunctivae are pink. Neck: Neck veins are not appreciated. Heart: Regular. No rubs. Lungs: Equal. No crackles. Abdomen: Soft, nontender. Normal bowel sounds. No organomegaly. Extremities: Trace edema. No clubbing or cyanosis. IMPRESSION: Chronic kidney disease stage 5. His BUN and creatinine continue to progress. I do think it is reasonable to perform nephrostomy drainage to see if this helps his kidney function. If not then he will likely require hemodialysis. He does not meet criteria for dialysis at this time. No other specific recommendations. cc: Hunter Ramirez MD
[2019-07-11] MEDS: TRANDATE PO SCH ×3 (00:58→20:22)
[2019-07-11] MEDS: APRESOLINE PO SCH ×4 (00:58→20:22)
[2019-07-11] MEDS: ZYVOX 600 MG/D5W 600 MG/300 ML IVPB IV SCH ×2 (01:03→12:10)
[2019-07-11] MEDS: ZOFRAN IV PRN ×2 (04:15→08:50)
[2019-07-11] MEDS: ZOSYN 2.25 GM in NS 50 ML IV SCH ×2 (04:15→11:31)
[2019-07-11] MEDS: NITROGLYCERIN TOP SCH ×2 (08:45→21:50)
[2019-07-11] MEDS: HEPARIN SUBQ SCH ×2 (08:47→20:21)
[2019-07-11] MEDS: FOLIC ACID PO SCH (08:48)
[2019-07-11] MEDS ORDERED: SODIUM CHLORIDE 0.9% INJ PRN (09:30)
[2019-07-11 09:42] LABS: HEMATOCRIT 24.6 % (42.0-52.0); HEMOGLOBIN 7.9 g/dL (14.0-18.0); MCH 26.4 PG (27-31); MCHC 32.1 g/dL (33-37); MCV 82.3 FL (81-99); MPV 9.9 FL (7.4-10.4); RBC 2.99 XMIL (4.7-6.1); RDW 15.1 % (11.5-14.5); WBC 10.89 X1000 (4.8-10.8)
[2019-07-11 10:01] LABS: ALBUMIN 2.7 g/dL (3.5-5.0); CALCIUM 7.9 mg/dL (8.8-10.2); PHOSPHORUS 6.5 mg/dL (2.7-4.5); POTASSIUM 4.2 mmol/L (3.5-5.1)
[2019-07-11 10:02] LABS: CALCIUM 7.9 mg/dL (8.8-10.2); POTASSIUM 4.3 mmol/L (3.5-5.1)
[2019-07-11] MEDS: PHENERGAN IV PRN ×2 (10:10→22:04)
[2019-07-11 10:23] LABS: CREATININE 5.5 mg/dL (0.7-1.2); CREATININE 5.9 mg/dL (0.7-1.2)
--- NOTE | 2019-07-11 14:43 | Diag Imaging Result Doc PS360 ---
EXAM: ABDOMEN FLAT/UPRIGHT 07/11/2019 HISTORY: constipation TECHNIQUE: Flat and upright abdomen COMMENT: There is a large calculus on the left side of the abdomen. The bowel gas pattern is unremarkable. There is no evidence of organomegaly or mass. IMPRESSION: Left renal pelvic calculus. This is been demonstrated on previous CT and plain film exams. Otherwise no evidence of acute disease. Electronically signed by Shahid Hebert 07/11/2019 2:40 PM
--- NOTE | 2019-07-11 19:32 | PROGRESS NOTE ---
DATE: 07/11/2019 SUBJECTIVE: The patient states that he has been having continuous nausea and vomiting. He is not able to the eat and he was unable to take his medications this morning. OBJECTIVE: Vital Signs: Temperature 98.3 degrees, blood pressure 147/73, heart rate 90, respirations 19, O2 saturation is 100% on room air. General: This is a chronically ill- appearing, elderly male lying in bed in no acute distress. Heart: S1, S2 normal. Regular rate and rhythm. Lungs: Clear to auscultation bilaterally. No wheezing. No rales. Abdomen: Positive bowel sounds. Soft, nontender, nondistended. Extremities: 2+ edema in the legs. Neurologic: The patient is alert and oriented x3. LABS: White blood cell count 10, hemoglobin 7.9, hematocrit 24, platelets 274,000. Sodium 140, potassium 4.3, chloride 108, CO2 19, BUN 37, creatinine 5.5, glucose 102, calcium 7.9, phosphorus 6.5, albumin 2.7. IMAGING: Abdominal x-ray: Left renal pelvic calculus. On no evidence of acute disease. ASSESSMENT AND PLAN: 1. Nausea with vomiting. The x-ray is unremarkable. The patient is having bowel movements. The patient may be becoming uremic. We will switch the patient to Phenergan and monitor his response. 2. Recurrent urinary tract infection. Likely secondary to the left renal stone. The urine culture grew out oxacillin sensitive Staphylococcus aureus. We will switch the patient to cefazolin. 3. Chronic kidney disease stage 5. The patient stated that he is not interested in having a nephrostomy tube placed and he also stated that he refuses to be placed on dialysis. The patient was informed that he does not have any other options left since he is refusing the interventions that were recommended for him. We will await further recommendations from the rigging loft repairer. 4. Left nephrolithiasis with hydroureter and hydronephrosis. Stable. 5. Sigmoid colon mass. The patient will follow up with Dr. Sales and Dr. Mitchell as outpatient to discuss his options. 6. Severe protein-calorie malnutrition. Continue on the current diet. The dietitian has been consulted. 7. Hypertension. The patient did not take his medications this morning due to nausea and vomiting. We will continue on the current regimen. 8. Metabolic acidosis. Stable. 9. Anemia. hemoglobin and hematocrit is low but stable. 10. Deep vein thrombosis prophylaxis. Continue on heparin. Disposition: The patient has requested to be made a DNR level 1. Will consult with palliative care for assistance with goals of care cc: Nena Gross MD MTDD
[2019-07-12] MEDS: APRESOLINE PO SCH ×3 (08:13→21:38)
[2019-07-12] MEDS: NITROGLYCERIN TOP SCH ×2 (09:13→21:37)
[2019-07-12] MEDS: HEPARIN SUBQ SCH ×3 (09:13→21:43)
[2019-07-12] MEDS: TRANDATE PO SCH ×2 (09:13→21:37)
[2019-07-12] MEDS: FOLIC ACID PO SCH (09:13)
[2019-07-12] MEDS: KEFZOL 1 GM/D5W 1 GM/50 ML IVPB IV SCH (09:13)
[2019-07-12 10:12] LABS: HEMATOCRIT 25.6 % (42.0-52.0); HEMOGLOBIN 8.3 g/dL (14.0-18.0); MCH 26.7 PG (27-31); MCHC 32.4 g/dL (33-37); MCV 82.3 FL (81-99); MPV 9.6 FL (7.4-10.4); RBC 3.11 XMIL (4.7-6.1); RDW 15.2 % (11.5-14.5); WBC 10.64 X1000 (4.8-10.8)
[2019-07-12] MEDS ORDERED: SODIUM CHLORIDE 0.9% INJ SCH (10:15)
[2019-07-12 10:25] LABS: ALBUMIN 2.9 g/dL (3.5-5.0); CALCIUM 7.9 mg/dL (8.8-10.2); POTASSIUM 4.1 mmol/L (3.5-5.1)
[2019-07-12 10:28] LABS: CREATININE 6.2 mg/dL (0.7-1.2)
[2019-07-12] MEDS: PROTONIX IV SCH ×2 (11:44→21:37)
--- NOTE | 2019-07-12 13:09 | GASTROENTEROLOGY CONSULTATION ---
DATE: 07/12/2019 REASON FOR CONSULT: Intractable nausea and vomiting. HISTORY OF PRESENT ILLNESS: Mr. Hunter is a 58-year-old male who was recently diagnosed with colon mass suspicious for colon cancer. He has a history of iron deficiency anemia, diabetes, chronic kidney disease. The patient came to the hospital on 07/09/2019. He was asked to undergo renal biopsy, which he refused. The patient was last seen here in May and GI saw him on 05/26/2019 drop in his hematocrit, had anemia and had required 1 unit of blood transfusion. Hemoccult was positive. A colonoscopy was done by Dr. Fuentes on 05/26/2019. The patient had a near circumferential mass that was found located 20 cm from the point of entry and in the sigmoid colon multiple biopsies were performed and tattoo was also applied. He had a few subcentimeter polyps. A chest CT was obtained to rule out metastasis and Surgery was consulted. The patient's pathology report showed that he had a tubulovillous adenoma with high- grade dysplasia and Surgery was consulted for his sigmoid mass. At that time, the patient was told that he would need a resection, but he has refused the resection. The patient currently is complaining of intractable nausea and vomiting. He is saying that his blood pressure has been elevated on this admission. The patient was very aggressive and agitated. He did not want to answer any questions. The patient did mention that he had vomited a couple of times this morning, but he has denied noticing any blood in his vomit. He has denied any abdominal pain. PAST MEDICAL HISTORY: Diabetes, kidney stones, colon cancer, acute renal failure, chronic kidney disease, MRSA in the back of the head. SURGICAL HISTORY: Back surgery secondary to MRSA. SOCIAL HISTORY: He dips 1 can a day. Denies any illicit drug use. He is a past alcoholic. He is and lives with his roommate FAMILY HISTORY: Positive for colon cancer, diabetes, and stroke. ALLERGIES: No known drug allergies. HOME MEDICATIONS: 1. Lipitor 40 mg p.o. bedtime. 2. Ferrous sulfate 325 mg daily. 3. Folic acid 1 mg p.o. daily. 4. Norvasc 10 mg p.o. daily. 5. Vitamin B12 50 mcg p.o. daily. REVIEW OF SYSTEMS: As per HPI, otherwise 12-point review of systems is negative. PHYSICAL EXAMINATION: Vital Signs: Temperature 98.1 degrees, pulse 90, respirations 16, blood pressure 180/90, oxygen saturation 100% on room air. The patient's weight is 146 pounds. BMI is 22.9 kg/m2. General: He is alert, oriented x3, and in no acute distress. HEENT: Pale conjunctivae. No icterus. PERRL. Neck: Supple. Lungs: Clear to auscultation. Cardiovascular: Regular rate and rhythm. Abdomen: Soft, nontender, nondistended. Active bowel sounds heard in all 4 quadrants. Extremities: No clubbing, no cyanosis, no edema. Pedal pulses 2+ present bilaterally. Neurologic: He is alert and oriented x3. Nonfocal. Cranial nerves 2-12 grossly intact. LABORATORY DATA: WBC is 13.64, RBC is 3.11, hemoglobin 8.3, hematocrit is 25.6, platelet count is 277,000. Sodium 139, potassium 4.1, chloride 106, carbon dioxide 19, anion gap is 14, BUN is 37, creatinine is 6.2, glucose 77, calcium 7.9, phosphorus 6.0, albumin is 2.9. Plasma lactate is 0.5. Urinalysis has shown urine protein of 100, glucose of 150, moderate amount of blood, large amount of leukocytes. IMAGING: Abdominal x-ray yesterday showed left renal pelvic calculus. IMPRESSION AND PLAN: 1. Nausea and vomiting. 2. Colon cancer at Sigmoid area being followed by Dr Hurt. 3. Kidney stones. 4. Renal failure. PLAN: Mr. Hunter is a 58-year-old male with a history of colon cancer. Gastroenterology has been consulted for his nausea and vomiting. The patient currently is on IVF, antiemetic Zofran and Phenergan for his nausea and vomiting. The patient is on PPI twice a day. He is receiving antibiotic Kefzol. We do not plan to do any procedures for now. We will continue to monitor the patient's nausea and vomiting and follow the plan of care per PCP. This plan was discussed with Dr. Shah. Thank you for your consult. Please call us for any further questions or concerns. Dictated by ABA Bowen for Nghia Shah MD cc: Nghia Shah MD I have seen and examined the patient myself and I agree with the above plan of care. Please call us with any further questions or concerns. ELIE
[2019-07-12] MEDS ORDERED: LOPRESSOR IV SCH (14:15)
--- NOTE | 2019-07-12 14:19 | PROGRESS NOTE ---
DATE: 07/12/2019 SUBJECTIVE: The patient states that he has been vomiting all night. He states that he cannot eat any of his meals due to persistent nausea and vomiting and he has been unable to take his oral medication. OBJECTIVE: Vital Signs: Temperature 98.1 degrees, blood pressure 145/93, heart rate 78, respirations 23, O2 saturation is 96% on room air. General: This is a chronically ill-appearing, elderly male lying in bed, in no acute distress. Heart: S1, S2 normal. Regular rate and rhythm. Lungs: Clear to auscultation bilaterally. No wheezing. No rales. No rhonchi. Abdomen: Positive bowel sounds. Soft, nontender, nondistended. Extremities: There is 2+ edema bilaterally in the legs. Neurologic: The patient is alert and oriented x3. LABS: White blood cell count 10, hemoglobin 8.3, hematocrit 25, platelets 277,000. Sodium 139, potassium 4.1, chloride 106, CO2 19, BUN 37, creatinine 6.2, glucose 77, calcium 7.9, phosphorus 6, albumin 2.9. ASSESSMENT AND PLAN: 1. Intractable nausea with vomiting. This may represent uremia. The patient is on antiemetic therapy. The patient has also been assessed by GI who are not planning on doing any procedures at this time. 2. Recurrent urinary tract infection secondary to oxacillin-sensitive Staphylococcus aureus. Continue on cefazolin. The patient does have a left renal stone that may be contributing to his recurrent infections. 3. Chronic kidney disease stage 5. The patient refuses to be placed on dialysis. We will continue to monitor closely. 4. Left nephrolithiasis with hydroureter and hydronephrosis. Stable. 5. Sigmoid colon mass. The patient is followed by Dr. Sales as outpatient. The patient will need to follow up with Dr. Mitchell as outpatient to discuss his options. 6. Severe protein calorie malnutrition. The patient is unable to eat due to his persistent nausea and vomiting. We will monitor closely. 7. Hypertension, uncontrolled. The patient has been unable to take his medications due to persistent nausea and vomiting. We will switch the patient to IV antihypertensive therapy. 8. Anemia. Stable. 9. Metabolic acidosis. Stable. 10. Deep vein thrombosis prophylaxis. Continue on heparin. 11. Disposition. Palliative Care has been consulted to discuss goals of care with the patient. The patient is a DNR level 1. cc: Nena Gross MD MTDD
--- NOTE | 2019-07-12 18:38 | PROVIDER PROGRESS NOTE ---
Progress Note Subjective: He complains of nausea and vomiting. No other complaints noted. Objective: temperature 98.7, pulse 65, respirations 23, but pressure 149/74, 02 sat 94% on room air. General: Chronically ill white male lying in bed in no acute distress HEENT: normocephalic, atraumatic, pupils equal and reactive, mucous membranes moist. Skin: warm and dry Neck: supple, no JVD Cardiovascular: S1S2. regular rate and rhythm. No murmur or gallop. Respiratory: lungs clear anteriorly Abdomen: soft, nontender, nondistended. Bowel sounds present. : not inspected Extremities: Trace edema to BLE Neurological: alert and oriented to person place and time. Labs: WBC 10.64, hemoglobin 8.3, hematocrit 25.6, platelet count 277, intake 590, output 400. Sodium 139, potassium 4.1, chloride 106, carbon dioxide 19, BUN 37, creatinine pending. Impression: Chronic kidney disease stage five. We are awaiting his labs from today. His Creatinine has been trending up daily. He has made it clear that he does not wish to receive hemodialysis nor does he want a nephrostomy tube. Left nephrolithiasis with Hydroureter and Hydronephrosis. Stable. Again, he does not wish to have intervention at this point. Blood pressure. Stable. Fluid volume. Euvolemic. Anemia. Low, stable. Does not mean transfusion criteria. Electrolytes and acid base balance. Stable. Nutrition. He voices nausea and vomiting but still is hungry and receiving his food tray. He typically eats 100% of his meal. Medication review. Cefazolin, protonix, and phenergan started. I again discussed uremic symptoms and their relationship to renal failure. I discussed with technicalities of dialysis including goals, access, typical schedule, risks. He again states that he is not interested in treatment of his kidney disease with dialysis. I will sign off but if he changes his mind I would be glad to see him again. master
--- NOTE | 2019-07-12 18:41 | GENERAL SURGERY CONSULTATION ---
DATE: 07/12/2019 REASON FOR CONSULTATION: Colon cancer. HISTORY OF PRESENT ILLNESS: This is a 58-year-old gentleman who is known to me. He has a colon mass that was diagnosed several weeks ago. I have seen him in the outpatient clinic. He was hospitalized a couple weeks ago with lower GI bleed and anemia associated with this. He has had progressively worsening renal dysfunction and a large left collecting system renal stone that does cause some hydronephrosis. He has been evaluated by Urology and Nephrology. He is admitted with a UTI. Dr. Sales apparently referred him from his office over here. His hematocrit has been as low as 22. I believe he was transfused and is up to 25 now. He denies any abdominal pain. Bowel function has been normal. He has developed some nausea and vomiting over the course of the day today and felt to be uremia related. We have been monitoring his kidneys prior to resection of his colon, but despite his workup, he has had progressive worsening with a creatinine up to 6.2 now. Plans are for a percutaneous nephrostomy tube, it is my understanding, although I do get the impression there is some discussion about this. MEDICAL HISTORY: He has acutely worsening renal dysfunction, hypertension, nephrolithiasis. He has Staph aureus growing out of his urine, hydroureter, and hydronephrosis on the left, and colon cancer, tobacco use. SURGICAL HISTORY: He has had back operations. I believe he has had an inguinal hernia but he has never had any other major abdominal surgery. SOCIAL HISTORY: He uses smokeless tobacco. He has quite a lot of family. FAMILY HISTORY: His mother had kidney stones as well as colon cancer. REVIEW OF SYSTEMS: Ten point review of systems was performed and negative other than what is mentioned in HPI. PHYSICAL EXAMINATION: Vital signs: He is afebrile. Pulse has been in the 90s. Blood pressure 180/94. Oxygen saturation is 100% on room air. General: He is alert. HEENT: He has poor dentition, but no cervical mass. Cardiovascular: Normal rate. Pulmonary: No increased work of breathing. Abdomen: Soft, nontender, nondistended. Integument: Warm, dry. Musculoskeletal: He has no costovertebral angle tenderness. Peripheral vascular: No lower extremity edema. Psychiatric: He is a little anxious seemingly. Neurological: There is no deficit. LABORATORY: White count 10, hematocrit 25. Creatinine 6.2, potassium 5.1, phosphorus up to 6.0. His creatinine was 4.2 back on June 03. I reviewed his imaging. He has had a renal phase CT scan that shows a large left kidney stone. He has had an abdominal x-ray that shows the same but no evidence of obstruction. On his renal stone search his colon is decompressed with no evidence of colonic obstruction. ASSESSMENT AND PLAN: This is a 58-year-old gentleman with a sigmoid colon mass. He does need resection for this, but I would ideally like for his creatinine to be near baseline. We discussed with the patient. He has gone back and forth. He says initially that he did not want a colectomy and just soon and then he said Dr. Sales said that he had would only want a laparoscopic operation. But I have discussed with him that although we strive for laparoscopic operations, it is possible he would require an open operation. We need to do whatever is safe for him and provide the best cancer outcome. He seems to understand and agrees with this. Not really sure what his concerns are based in, other than just the size of the incision and the scar. But I did also state that we can perform his operation as soon as possible, but that it is best to make sure that medically he is optimized to prevent any cardiovascular or worsening of his renal function. He seemed to understand all of this. We will follow along as his renal dysfunction is worked up and managed. cc: Milagro Mitchell MD
[2019-07-13] MEDS: APRESOLINE PO SCH ×3 (04:38→20:50)
[2019-07-13 05:24] LABS: BASO# 0.04 X1000 (0.0-0.2); BASO% 0.4 % (0.0-0.8); EOS# 0.41 X1000 (0.0-0.7); EOS% 4.1 % (0.0-10.0); HEMATOCRIT 23.9 % (42.0-52.0); HEMOGLOBIN 7.6 g/dL (14.0-18.0); IMM GRAN# 0.02 X1000 (0.0-0.04); IMM GRAN% 0.2 % (0.0-0.5); LYMPH# 2.12 X1000 (1.2-3.4); LYMPH% 21.5 % (20.5-51.1); MCH 26.6 PG (27-31); MCHC 31.8 g/dL (33-37); MCV 83.6 FL (81-99); MONO# 0.85 X1000 (0.11-0.59); MONO% 8.6 % (1.7-9.3); MPV 10.3 FL (7.4-10.4); NEUT# 6.44 X1000 (1.4-6.5); NEUT% 65.2 % (42.2-75.2); PLT 277 X1000 (130-400); RBC 2.86 XMIL (4.7-6.1); RDW 15.2 % (11.5-14.5); WBC 9.88 X1000 (4.8-10.8)
[2019-07-13 06:02] LABS: ALBUMIN 2.2 g/dL (3.5-5.0); CALCIUM 7.6 mg/dL (8.8-10.2); CREATININE 6.5 mg/dL (0.7-1.2); POTASSIUM 4.1 mmol/L (3.5-5.1)
[2019-07-13] MEDS: HEPARIN SUBQ SCH ×3 (10:31→20:56)
[2019-07-13] MEDS: NITROGLYCERIN TOP SCH (10:31)
[2019-07-13] MEDS: KEFZOL 1 GM/D5W 1 GM/50 ML IVPB IV SCH (10:31)
[2019-07-13] MEDS: PROTONIX IV SCH ×2 (10:31→22:46)
[2019-07-13] MEDS: FOLIC ACID PO SCH (10:31)
[2019-07-13] MEDS: TRANDATE PO SCH ×2 (10:31→20:50)
--- NOTE | 2019-07-13 11:10 | GASTROENTEROLOGY PROGRESS NOTE ---
DATE: 07/13/2019 SUBJECTIVE: Mr. Hunter is a 58-year-old, male, resting in bed. He has denied any nausea, vomiting since yesterday. The patient did have one bowel movement this morning. OBJECTIVE: Vital Signs: Temperature 97.9 degrees, pulse 78, respirations 12, blood pressure 108/54, oxygen saturation 98% on room air. The patient's weight is 141 pounds. BMI is 22.2 kg/m2. General: He is alert and oriented x3, and in no acute distress. HEENT: Pale conjunctivae. No icterus. PERRL. Neck: Supple. Lungs: Clear to auscultation. Cardiovascular: Regular rate and rhythm. Abdomen: Soft, nontender, nondistended. Active bowel sounds heard in all 4 quadrants. Extremities: No clubbing, no cyanosis, no edema. Pedal pulses 2+ present bilaterally. Neurologic: He is alert and oriented x3. LABORATORY DATA: WBCs 9.88, RBCs 2.86, hemoglobin is 7.6, hematocrit is 23.9, platelet count is 277,000. Sodium 140, potassium 4.1, chloride 109, carbon dioxide 20, anion gap 11, BUN 37, creatinine is 6.5, glucose 136, calcium 7.6. Phosphorus 6.0. Albumin is 2.2. IMPRESSION AND PLAN: Nausea and vomiting Colon Cancer Kidney stones Renal failure PLAN: Mr. Hunter is a 58-year-old, male with a history of colon cancer at the sigmoid area, followed by Dr. Sales.. GI has been following him for his nausea and vomiting. The patient has denied any nausea and vomiting since yesterday. He is currently receiving antiemetic, Zofran and Phenergan as needed for his nausea and vomiting. The patient is on PPIs twice a day. He is also receiving antibiotic, Kefzol. We will sign off for now. Please call us for any further questions or concerns. This plan was discussed with Dr. Fuentes. Dictated by ABA Bowen for Dimas Fuentes MD [facility]
--- NOTE | 2019-07-13 12:16 | PROGRESS NOTE ---
DATE: 07/13/2019 INTERVAL HISTORY: No acute events overnight. SUBJECTIVE: Mr. Hunter stated is eating. Denies any more nausea, vomiting, or abdominal pain. He has refused to undergo dialysis. He states the surgeon doctor told him that he has a mass in the colon which has gotten better. However, I explained to him that he probably misunderstood surgeon doctor's advice and discussion. VITAL SIGNS: Currently temperature of 97.9 degrees, pulse 78, respiratory rate 12, blood pressure 98/54. He is saturating 98% on room air. PHYSICAL EXAMINATION: General: Not in acute distress. He appears to have lost some weight since prior admission. HEENT: Oral cavity is moist. He has missing teeth and tobacco in his mouth. Lungs: Air entry bilaterally equal. No wheeze, rhonchi, crackles. Cardiovascular: S1, S2 normal. No murmur or gallop. Abdomen: Soft, nontender. Extremities: He has mild bilateral lower extremity edema. Neurologic: He is alert, he is oriented x3. LABORATORY DATA: Suggestive of hemoglobin of 7.6, platelet of 277,000. He has a BUN of 37, creatinine of 6.5. He continues to have hypocalcemia and hyperphosphatemia. Urine culture is growing Staphylococcus aureus UTI. No new imaging. ASSESSMENT AND PLAN: 1. Intractable nausea and vomiting which could be in the setting of uremia. It has now improved. He previously had endoscopy on June 25 which was essentially unremarkable. I will continue him on Zofran and pantoprazole. 2. Recurrent urinary tract infection due to methicillin-susceptible Staphylococcus aureus in the setting of nephrolithiasis. I will continue to treat him with antibiotics. He has been on intravenous cefazolin. I assume the dose has been adjusted for his poor kidney function. 3. Acute kidney injury on chronic kidney disease with hypocalcemia and hyperphosphatemia. The patient had repeatedly refused to undergo kidney biopsy in the past and considering his noncompliance, he may not be the best candidate to initiate dialysis. He also tells me that his brother was on dialysis and he had and he vehemently refuses to undergo dialysis. I will start him on calcium acetate. 4. Chronic anemia, likely related to chronic kidney disease. He could have a component of hypertensive nephropathy. His anemia could also be blood loss anemia due to colon mass. I will continue him on folic acid and I will add back iron as well as vitamin B12. 5. Uncontrolled essential hypertension. It could have also contributed to his nausea and vomiting on presentation. Currently well-controlled on hydralazine, labetalol and nitroglycerin and I will adjust the dose according to his response. 6. 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 Previously, he had refused to undergo colectomy. General surgical team on board. 7. Disposition. The patient's code status is DNR level 1 and he confirmed it during my encounter with the patient. I will hold a discussion with Oncology team and considering patient's noncompliance, there are not too many interventions that could be offered to him inpatient. If he tolerates his diet well, I would anticipate discharge in the next 24 hours with outpatient followup. Mr. Hunter is in agreement with the plan. He does not want me to call his son when he is awake; however, he did tell me that in a situation when he is not able to make decisions, it was okay for me to let his son know and update him about his medical condition. I am awaiting a call back from the oncology team. cc: Skyler Hartley MD MTDD
--- NOTE | 2019-07-13 20:17 | GENERAL SURGERY PROGRESS NOTE ---
DATE: 07/13/2019 SUBJECTIVE: His nausea is better. He says he feels some better. No fevers. No tachycardia. OBJECTIVE: Vital signs: Blood pressure 164/78. General: He is alert. Cardiovascular: Normal rate. Abdomen: Soft, nontender, nondistended. Integument: Warm and dry. LABS: White count is 9, hematocrit is 23. Creatinine 6.5 today, up from 6.2. Potassium is 4.1. Albumin is low at 2.2. ASSESSMENT AND PLAN: A 58-year-old gentleman with a sigmoid colon mass. 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 Unfortunately, he continues to have worsening renal dysfunction and uremic symptoms. He has refused hemodialysis. I have talked to Dr. Ramirez about this. The consensus between Dr. Ramirez and Dr. Shirley is that he is unlikely to gain significant benefit from percutaneous nephrostomy. The patient has been apprehensive to undergo this as well. Given these findings and his progression of his renal dysfunction persistently over the last several days and even the last couple months, I have advised against sigmoid colectomy at this juncture as unfortunately I suspect he will succumb to his renal failure prior to developing any issues related to his colon mass. He is anemic. I suspect that he is losing some blood from this, but I also suspect that this is a multifactorial anemia as well. We will follow along. I have had a long discussion with the patient. He understands and despite matthew discussions, he continues to not want to pursue dialysis. If he were to change his mind, we were to dialyze, and his uremia improved, and anemia is better, we could consider sigmoid colectomy. He seems to be amenable to this, but he understands the priority of his disease. cc: Milagro Mitchell MD
[2019-07-13] MEDS ORDERED: LIPITOR PO SCH (21:00)
[2019-07-14] MEDS: APRESOLINE PO SCH ×2 (04:59→14:51)
[2019-07-14] MEDS ORDERED: NORVASC PO SCH (09:00)
[2019-07-14] MEDS: FOLIC ACID PO SCH (09:17)
[2019-07-14] MEDS: TRANDATE PO SCH (09:17)
[2019-07-14] MEDS: HEPARIN SUBQ SCH ×2 (09:17→09:20)
[2019-07-14] MEDS: FERROUS SULFATE PO SCH ×2 (09:17→09:20)
[2019-07-14] MEDS: PROTONIX IV SCH (09:17)
[2019-07-14] MEDS: VITAMIN B-12 PO SCH ×2 (09:17→09:21)
[2019-07-14] MEDS: KEFZOL 1 GM/D5W 1 GM/50 ML IVPB IV SCH (09:18)
--- NOTE | 2019-07-14 13:05 | DISCHARGE SUMMARY ---
ADMISSION DATE: 07/09/2019 DISCHARGE DATE: 07/14/2019 DISCHARGE DISPOSITION: Home. DISCHARGE CONDITION: Hemodynamically stable. He denies any nausea or vomiting. He continues to have worsening kidney failure, but he refused to receive any intervention. He was counseled about the nature of his medical conditions including colon cancer, kidney failure, nephrolithiasis, and urine infection. He was counseled about the need for surgery, kidney biopsy, possibly eventual dialysis. He was also counseled about life-threatening nature of his condition. I frankly told him that he could potentially because of his kidney failure, spread of colon cancer, or intestinal obstruction. He understood it and despite that, he did not want any kidney biopsy. He was not willing to be started on dialysis, and he told me that he did not believe he had cancer because he did not have symptoms of it. I offered him further explanation. I also offered him to talk with his family members, but he refused and did not allow me to talk with the family members on the phone. He does not want me to call his son, Kang. DISCHARGE DIAGNOSES: 1. Intractable nausea and vomiting, which could be in the setting of uremia. 2. Recurrent methicillin sensitive Staphylococcus aureus urinary tract infection leading to acute cystitis with microscopic hematuria associated with nephrolithiasis. 3. Acute kidney injury on chronic kidney disease. 4. Hypocalcemia and hyperphosphatemia. 5. Chronic anemia. 6. Uncontrolled essential hypertension, and possibly hypertensive emergency. 7. Left nephrolithiasis with hydronephrosis and hydroureter. 8. Sigmoid colon mass, most likely colon cancer based on gross appearance at the time of colonoscopy, as well as FDG avidity. CODE STATUS: DO NOT RESUSCITATE, level 1. DISCHARGE MEDICATIONS: 1. Atorvastatin 40 mg at nighttime. 2. Amoxicillin 500 mg every 8 hours, 15 capsules have been prescribed. 3. Ferrous sulfate 325 mg daily. 4. Folic acid 1 mg daily. 5. Amlodipine 10 mg daily. 6. Labetalol 200 mg b.i.d. 7. Vitamin B12 500 mcg daily. PHYSICAL EXAMINATION: Vital Signs: At the time of discharge, temperature 97.4 degrees, pulse 77, respiratory 23, blood pressure 170/84, saturating 100% room air. General: Mr. Hunter is not in acute distress. He has poor oral hygiene. Lungs: Air entry bilaterally equal. No wheezes, rhonchi, or crackles. Cardiovascular: S1, S2 normal. No gallop. Abdomen: Soft, nontender. Extremities: Mild lower extremity edema. Neurologic: He was alert and oriented x3. LABS: At the time of admission and discharge WBC 9.8, hemoglobin 7.6, platelet 277,000. BUN 37, creatinine 6.5, blood glucose 136, calcium of 6. Microbiology at time of discharge; urine culture had Staphylococcus aureus. IMAGIN. At the time of hospital admission/discharge, renal CT on presentation had left nephrolithiasis, hydronephrosis and hydroureter and possibility of cystitis could not be excluded. 2. Abdominal x-ray on July 10 had left renal pelvic calculus, otherwise no acute disease. CONSULTATIONS DURING HOSPITAL ADMISSION: 1. Gastroenterology, Dr. Shah 2. General Surgery, Dr. Mitchell 3. Urology Dr. Shirley 4. Dr. Ramirez from Nephrology HOSPITAL COURSE SUMMARY: Mr. Keyon Hunter is a 58-year-old man who initially came to medical attention in May 2019 and who was discharged on in 06/03/2019. On that admission, he was diagnosed with sigmoid colon mass and renal dysfunction, though he had refused to undergo any intervention at that time. The patient eventually followed up with oncologist Dr. Sales in the office and at that time he was counseled about the nature of his cancer. He was sent to emergency room from the oncologist office for his worsening kidney function. On presentation, he was found to have creatinine of 4.9. The patient also complained of a kidney stone. He was admitted for further management. Though, on admission, he was hemodynamically stable with temperature of 97.9 degrees, pulse of 96 and respiratory rate of 16, he was found to have hypertensive emergency with blood pressure of 220/127. He was admitted for further management. The patient was started on antihypertensive medications and multiple subspecialties where consulted. With reinstitution of the patient's antihypertensive medications, his blood pressure came under control. He was also found to have recurrent Staphylococcus aureus, acute cystitis associated with renal stone. He was initially started on linezolid and Zosyn, which was later on changed to ceftriaxone, then which was changed to ondansetron and later on changed to cefazolin. At the time of discharge, he was provided prescription of amoxicillin. At the time of discharge the patient denied any nausea, vomiting, or burning during urination. He was advised to have outpatient follow up with his regular provider. With regards to his colon cancer, kidney dysfunction and nephrolithiasis, subspecialties were involved. Again during this admission Nephrology had offered him kidney biopsy to evaluate his kidney function and etiology of his kidney dysfunction better, but the patient had refused to undergo any kidney biopsy. General surgical team had explained to him about the need for laparoscopic and possibly open colectomy to get rid of his cancer and he was cautioned that it may he may end up needing dialysis after surgery. Despite understanding it, the patient did not want any aggressive intervention. In fact, he did not believe he had colon cancer and he his brother had a bad experience with dialysis, and the patient did not want to be started on dialysis. Urology team, considering his noncompliance, had just recommended conservative management rather than any stent and extracorporeal shock wave lithotripsy. TIME OF SERVICE: The patient was extensively counseled about his medical illnesses in detail in the in the presence of the patient's nurse, including potentially life-threatening nature of his multiple conditions. TIME SPENT: There were 35 minutes spent in this entire process. All of the patient's questions were satisfactorily answered. cc: Skyler Hartley MD
[2019-07-14 16:10] VITALS: BP 173/77
== END 2019-07-14 17:02 | disposition home or self-care (01) | DRG 693 ==
LOC: ED 10:28 → 1N 10:28 → OBSVTOIN 15:52 → SUATTDRO 15:52
PROVIDERS: ATTEND Internal Medicine